=== PATIENT | male | born 1950 | race Caucasian/White ===

== ENCOUNTER → 2018-01-10 09:23 | Outpatient (CLI) | payer MEDICARE, SELFPAY ==
--- NOTE | 2018-01-10 09:23 | ECHOCS_ITS ---
Reason For Study: CHF Procedure This was a 2D Doppler, Color Flow transthoracic echocardiogram. The study was technically difficult. Exam performed in department. Left Ventricle Normal size and thickness. Mildly dilated left ventricle. The estimated ejection fraction is 45 %. There are regional wall motion abnormalities as specified. Mid-Anterior : Mildly hypokinetic. Mid- inferoseptal : Mildly hypokinetic. Anterior [place] : Akinetic. Right Ventricle Normal size and thickness. Normal systolic function. Atria Normal left atrium. Normal right atrium. Normal atrial septum. Mitral Valve The mitral valve is structurally normal. No prolapse or stenosis seen. Tricuspid Valve Normal tricuspid valve. Trivial tricuspid valve insufficiency. Unable to estimate RV systolic pressure/pulmonary artery pressure due to technically difficult study. Aortic Valve Normal aortic valve. Trisinus/trileaflet aortic valve. Pulmonic Valve Normal pulmonic valve. Great Vessels Normal aortic root. Normal arch. Normal inferior vena cava. Inferior vena cava collapse with sniff. Pericardium/Pleural No pericardial effusion. Medication Definity0.3ml given slow IV push to enhance endocardial definition. MMode/2D Measurements & Calculations LVIDd: 5.4 cm IVSd: 0.91 cm Ao root diam: 3.2 cm LVIDs: 4.2 cm LVPWd: 0.80 cm LA dimension: 3.5 cm RVDd: 3.2 cm FS: 21.0 % LAV(MOD-bp): 34.4 ml LA A4 area: 12.7 cm2 RA A4 area: 12.2 cm2 LAV(MOD-bp) Indexed: 15.4 ml/m2 LAV(MOD-sp2): 33.9 ml LAV(MOD-sp4): 28.5 ml Doppler Measurements & Calculations MV E max james: 61.6 cm/sec Lat Peak E' James: 5.6 cm/sec Med Peak E' James: 5.7 cm/sec MV A max james: 87.4 cm/sec E/E' lat: 11.1 E/E' med: 10.8 MV E/A: 0.71 Ao V2 max: 127.4 cm/sec LV V1 max: 108.2 cm/sec PA V2 max: 90.4 cm/sec Ao max P.5 mmHg LV V1 max P.7 mmHg Ao V2 mean: 97.5 cm/sec Ao mean P.0 mmHg Ao V2 VTI: 27.0 cm Interpretation Summary Mildly dilated left ventricle. The estimated ejection fraction is 45 %. There are regional wall motion abnormalities as specified. Trivial tricuspid valve insufficiency. Unable to estimate RV systolic pressure/pulmonary artery pressure due to technically difficult study. Compared to echo report dated 08/25/2017, no appreciable changes noted. Ordering Physician: Amado Henriquez Referring Physician: Amado Henriquez Performed By: Luz Wilson RDCS, RVT
== END ==
PROVIDERS: Family Provider Family Medicine; PCP Family Medicine; Visit Provider Internal Medicine Cardiovascular Disease
DX: I25.5 Ischemic cardiomyopathy (principal)
CPT/HCPCS: 93306; Q9957; A4216; C8929

== ENCOUNTER → 2018-02-09 10:42 | Outpatient (CLI) | payer MEDICARE, SELFPAY ==
[2018-02-09 12:41] LABS: AST(SGOT) 21 U/L (15-37); Alanine Aminotransfer ALT/SGPT 42 U/L (16-61); Albumin, Serum 3.8 g/dL (3.2-5.0); Alkaline Phosphatase 93 U/L (45-117); Bilirubin, Direct 0.11 mg/dL (0.00-0.30); Cholesterol 147 mg/dL (200); Globulin 3.8 g/dL (2.2-4.2); High Density Lipoprotein 31 mg/dL; Protein, Total 7.6 g/dL (6.4-8.2); Triglycerides 179 mg/dL; Very Low Density Lipoprotein 36 mg/dL (5-40)
== END ==
PROVIDERS: Family Provider Family Medicine; PCP Family Medicine; Visit Provider Internal Medicine Cardiovascular Disease
DX: I25.5 Ischemic cardiomyopathy (principal); E78.00 Pure hypercholesterolemia, unspecified
CPT/HCPCS: 36415; 80061; 80076

== ENCOUNTER → 2018-08-08 10:12 | Outpatient (CLI) | payer MEDICARE, SELFPAY ==
--- NOTE | 2018-08-08 10:14 | STEWCON_ITS ---
Reason For Study: Pre-Op, CAD Stress Results Protocol: Evan Protocol Maximum Predicted HR: 151 bpm Target HR: 128 bpm % Maximum Predicted HR: 99 % DurationHeart Rate Stage (mm:ss) (bpm) BP Comment Baseline 77 130/72Diluted Definity 2 ML Given; No Chest Pain Evan Protocol Stage I 3:00 121 152/76No Chest Pain; Mild Dyspnea Evan Protocol Stage II 3:00 150 170/72No Chest Pain; Moderate to Severe Dyspnea Recovery 96 128/80No Chest Pain Stress Duration: 6:00 mm:ss Maximum Stress HR: 150 bpm METS: 7 Baseline Echocardiogram Findings The estimated ejection fraction is 35 % . Stress Echo Wall motion Data Resting WM Intermediate WM Stress WM Resting Wall Motion Wall Motion Stress Moderate global LV dysfunction. Basal anteroseptal: Severely Hypokinetic. Mid-Anterior : Severely Hypokinetic. Mid-anteroseptal : Severly Hypokinetic. Anterior [place] : Akinetic. EKG Data The baseline ECG displays normal sinus rhythm. The patient exercised according to the regular Evan protocol for a total duration of 6:00. The maximum heart rate attained was 151 beats per minute. This was 100% of maximum predicted heart rate. The patient exercised into stage 3 of the Evan protocol. During stress, there were no ST or T wave changes noted to suggest ischemia. No clinical angina was noted. Interpretation Summary The study was technically difficult. Contrast injection was performed. The estimated ejection fraction is 35 %. Moderate global LV dysfunction. Basal anteroseptal: Severely Hypokinetic. Mid-Anterior : Severely Hypokinetic. Mid-anteroseptal : Severly Hypokinetic. Anterior [place] : Akinetic. Abnormal, adequate, treadmill echocardiogram. Positive for ischemia by echocardiographic anterior. Patient had baseline global LV dysfunction with an EF around 30%. Peak exercise the patient has significant hypokinesis seen in several views of his mid anterior and apical lawrence. Final ejection fraction approximately 20%. No anginal symptoms noted. Rare PVCs noted. Below average exercise capacity for age. Appropriate blood pressure response to exercise. Test terminated due to dyspnea which may be an anginal equivalent. No complications. Patient was referred to our office for catheterization. Ordering Physician: Amado Henriquez Referring Physician: Amado Henriquez Performed By: Suzi Hughes, ROXY, RVT
--- NOTE | 2018-08-08 12:21 | RAD_ITS ---
STUDY: X-RAY CHEST REASON FOR EXAM: Male, 68 years old. CHF, failed stress test TECHNIQUE: PA and lateral views of the chest. COMPARISON: 08/23/2017 FINDINGS: The lungs are clear but mildly hyper expanded. There is no demonstrated pleural abnormality. Normal size heart. Normal mediastinum and art. Normal visualized pulmonary arteries. There is atherosclerotic calcification of the aortic arch with tortuosity. There are diffuse degenerative changes of the visualized thoracic spine. Normal visualized ribs, clavicles, and shoulders. There is no demonstrated abnormality of the visualized soft tissue structures of the upper abdomen. RAD/Chest PA and Lateral IMPRESSION: 1. Since 08/23/2017, stable exam. No acute cardiopulmonary process. Electronically Signed: Antonio Zamora MD at 7:34 EST , Service support ,
[2018-08-08 13:43] LABS: Hematocrit 45.5 % (40-54); Hemoglobin 15.5 g/dl (13.0-16.5); Mean Corp Hgb Conc 34.1 g/gl (32-36); Mean Corpuscular Volume 93.8 fL (80-94); Mean Platelet Vol. 9.5 fl (6.2-12.0); Platelet Count 215 K/mm3 (150-450); Prothrombin Time (Protime)PT. 13.6 SECONDS (11.7-14.9); RBC Distribution Width CV 13.3 % (11.6-14.6); RBC Distribution Width SD 44.4 fl (35.1-43.9); Red Blood Count 4.85 M/mm3 (4.6-6.2); White Blood Count 6.6 K/mm3 (4.4-11.0)
[2018-08-08 13:44] LABS: Partial Thromboplast Time 28.1 Seconds (24.1-36.2)
[2018-08-08 13:56] LABS: Anion Gap 6 (5-15); BUN 15 mg/dL (7-18); Calcium,Total 8.8 mg/dL (8.5-10.1); Chloride 105 mmol/L (98-107); Creatinine, Serum 0.83 mg/dL (0.70-1.30); EST Glomerular Filtration Rate 97 mL/min (>60); Est Glom Filt Rate - Afr Amer 118 mL/min (>60); Glucose 111 mg/dL (74-106); Potassium 3.6 mmol/L (3.5-5.1); Sodium Level 137 mmol/L (136-145)
[2018-08-08 14:11] LABS: Scan Indicated on CBC? Y/N NO
== END ==
PROVIDERS: Family Provider Family Medicine; PCP Family Medicine; Referring Provider Internal Medicine Cardiovascular Disease; Visit Provider Internal Medicine Cardiovascular Disease
DX: I25.5 Ischemic cardiomyopathy (principal); I25.10 Atherosclerotic heart disease of native coronary artery without angina pectoris; Z95.5 Presence of coronary angioplasty implant and graft; Z72.0 Tobacco use; R94.39 Abnormal result of other cardiovascular function study; Z79.01 Long term (current) use of anticoagulants
CPT/HCPCS: 36415; 71046; 80048; 85027; 85610; 85730; 93017; 93350; Q9957; A4216; C8928

== ENCOUNTER 2018-08-22 07:38 | Day surgery (SDC) | payer MEDICARE, SELFPAY ==
[2018-08-21 08:43] VITALS: BMI 33.3
[2018-08-22] VITALS (21 sets, daily range): BP systolic 87–131; BP diastolic 58–78; PULSE 69–87; RESP 10–22; TEMP 36.6–36.7; O2SAT 95–99; BMI 33.3; BMI 33.4
--- NOTE | 2018-08-22 12:01 | CL.I_ITS ---
Patient Name: RIGOBERTO ALBERTS Study Date: 08/22/2018 Performing: Amado Henriquez MD Ht: 70.86 inches 180 cm : 1950 Wt: 238.1 lbs 108 kg Age: 68 Gender: male BSA: 2.27 PROCEDURE(S) PERFORMED [id number]/COR/LV WS46-QSV W OR WO PTCA, SINGLE CORONARY ARTERY CLINICAL PROFILE AND CO-MORBIDITIES Heart Failure: NYHA Class: 1, Newly Diagnosed: No, Heart Failure Type: Systolic Stress/Imaging Stress Echocardiogram: Yes Result: Positive Intermediate Risk Stress Echocardiogra m: Positive Intermediate Risk Angina Classification Anginal Classification w/in 2 Weeks: CCS III CAD Presentations: Unstable angina. 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 RECOMMENDATIONS Highly recommend quitting all tobacco products Follow up with primary fitness and wellness coordinator Risk factor modification ASA Indefinitley Plavix for at least 12 months Routine post interventional care Refer for Outpatient Cardiac Rehab Manual sheath removal per protocol Elective PCI of OM#1 and Proximal LCX in 3 weeks. Will need to postpone macular surgery for 1 year; pt agreed prior to PCI. Successful Mynx closure. DESCRIPTION OF PROCEDURE The patient arrived to the procedure lab. The risks and benefits of the procedure as well as a full d escription of our services here and lack of surgical backup were fully explained to the patient and/o r their significant other prior to the catheterization. The Timeout was completed, verifying the darlyn ect patient and procedure. The patient's procedural site was prepped and draped in the usual fashion. Local anesthetic was given subcutaneously to right groin region with Lidocaine 2%. Using a modified Seldinger technique, arterial access was obtained via the right femoral artery, a 4Fr sheath was inse rted. Left Coronary Artery selective angiography was performed in multiple views using a 4 Fr. JL5 c atheter. Right Coronary Artery selective angiography was then performed in multiple views using a 4 F r. 3DRC catheter. Left Ventriculography was performed in WILLETT projection using a 4 Fr. Pigtail cathete r Arterial sheath was exchanged for a 6 Fr Sheath. HSII Guide catheter was inserted and engaged int o the RCA. BMW Guide wire was advanced to the RCA. Angiogram performed pre balloon dilatation. 2.0x12 Emerge Balloon catheter was advanced across lesion in the right coronary, proximal. PTCA balloon inf lated at 8 atms for 10 secs. Angiogram performed post balloon dilatation. 4.0x38 Synergy Drug Eluting stent was advanced across the lesion in the right coronary, proximal. Angiogram performed pre stent deployment. Angiogram performed post stent deployment. Contrast was injected through the sheath and t he Right Iliac and Femoral artery were assessed for possible closure device. The arterial sheath was pulled and a Mynx closure device was deployed for hemostasis CORONARY ANGIOGRAPHY DOMINANCE: Right Dominant LEFT HEART ASSESSMENT Left Ventricular Ejection Fraction: by LV Gram 25-30 % Depressed Left Ventricular systolic function LVEDP: 20 mmHg Elevated Left Ventricular End Diastolic Pressure Anterior Akinesis. Inferior Mid Hypokinesis - Moderate LEFT MAIN: Angiographically normal LEFT ANTERIOR DECENDING ARTERY: Previously placed stent is patent CIRCUMFLEX ARTERY: PROX CIRC: 75 % Stenosis OM 1: Proximal - 60 % Stenosis RIGHT CORONARY ARTERY: PROX RCA: 75 % Stenosis INTERVENTION INFORMATION LESION SITE: RCA (Proximal) Lesion Complexity: High/C, lesion at bifurcation: No, thrombus present: No, lesion length: 38 mm, cul prit lesion: Yes Pre Stenosis: 75 % Pre intervention MARI flow: 3 PROCEDURE: Drug Eluting Stent with pre dilatation. Post Stenosis: 0 % Post intervention MARI flow: 3 Lesion Devices: Medtronic 6 Fr HSII 100cm Guide Catheter [place] .014 BMW [place] Straight 190cm [place] Sci EMERGE MR 2.00x12 BALLOON [place] Sci Synergy MR EARL 4.00x38 COMPLICATIONS No Complications PROCEDURE MEDICATIONS Oxygen: 2 L/min via nasal cannula Heparin 6000 unit(s) IV 08/22/2018 11:32:07 Nitro 200 mcg IC 08/22/2018 11:35:01 Nitro 200 mcg IC 08/22/2018 11:35:01 IV Fluids: .9 NaCl increased to open ml/hr 08/22/2018 11:34:49 SUMMARY OF HEMODYNAMIC DATA Time AIR REST ECG 08:12:56 AO 113/67 (86) SA 11:24:09 LV 126/-8, 18 11:30:42 LV 128/-11, 20 11:30:48 LVp 120/-13, 16 11:31:09 AOp 117/65 (84) 11:31:14 Signed By Amado Henriquez MD On 08/22/2018 12:00:34 PM Amado Henriquez MD
[2018-08-22 12:11] LABS: ACT Activated Clotting Time 136 sec (74-137)
--- NOTE | 2018-08-22 12:18 | EKG12_ITS ---
Test Reason : POST PCI Blood Pressure : / mmHG Vent. Rate : 074 BPM Atrial Rate : 074 BPM P-R Int : 194 ms QRS Dur : 086 ms QT Int : 434 ms P-R-T Axes : 065 -18 058 degrees QTc Int : 481 ms Sinus rhythm with occasional Premature ventricular complexes Low voltage QRS Septal infarct (cited on or before 24-AUG-2017) Abnormal ECG Confirmed by ANTONIO MAKI, JORGE ([id number]), features editor SWETHA TOLEDO ([id number]) on 08/24/2018 3:17:50 PM Referred By: Amado Henriquez Confirmed By:JORGE ALVAREZ MD
[2018-08-22] MEDS: 0.9% Normal Saline 1,000 ML 150 ML IV (12:28)
--- NOTE | 2018-08-22 13:44 | CRPHASE1 ---
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 Specialist:: Amado Henriquez Phase I Charge:: Level I - Education Risk Factors/Lifestyle Smoking Status: Current every day smoker Hx Hypertension: Yes Hx Diabetes Mellitus Type 2: Yes - on metformin Height: 1.8 m Weight:: 108.4 kg BMI: 33.4 ETOH: No Caffeine: Yes Substance Abuse: No Family History: Family History (Last Reviewed 07/30/18 @ 10:20 by Kiara Patton) Other Pacemaker- mother Family History: Heart Disease Past Cardiac Illness: Coronary Artery Disease Phase I Education Given On:: [place], Nutrition, Antiplatelet medication, Smoking cessation, Diabetes - Type II Issues Affecting Care:: None Hospital Course Cardiac Cath Date:: 08/22/18 Medical/Surgical History DC:: Yes Angina:: Yes MEERA:: Yes - wears cpap Diabetes Type II:: Yes Hypertension:: Yes Other Medical/Surgical Issues:: Will come back for more stents in a few weeks. Discharge/Home/Social Eval Discharge Disposition: Home
--- NOTE | 2018-08-22 13:48 | CRPHASE1_ITS ---
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:: Amado Henriquez Phase I Charge:: Level I - Education Risk Factors/Lifestyle Smoking Status: Current every day smoker Hx Hypertension: Yes Hx Diabetes Mellitus Type 2: Yes - on metformin Height: 1.8 m Weight:: 108.4 kg BMI: 33.4 ETOH: No Caffeine: Yes Substance Abuse: No Family History: Family History (Last Reviewed 07/30/18 @ 10:20 by Kiara Patton) Other Pacemaker- mother Family History: Heart Disease Past Cardiac Illness: Coronary Artery Disease Phase I Education Given On:: [place], Nutrition, Antiplatelet medication, Smoking cessation, Diabetes - Type II Issues Affecting Care:: None Hospital Course Cardiac Cath Date:: 08/22/18 Medical/Surgical History [place]:: Yes Angina:: Yes MEERA:: Yes - wears cpap Diabetes Type II:: Yes Hypertension:: Yes Other Medical/Surgical Issues:: Will come back for more stents in a few weeks. Discharge/Home/Social Eval Discharge Disposition: Home
--- NOTE | 2018-08-22 13:49 | CRPH1.INSTRU ---
General Education CAD and cardiac anatomy and function:: Patient communicates acknowledgment Explanation of diagnoses and procedures:: Patient communicates acknowledgment Sign/Symptoms of NE:: Patient communicates acknowledgment Antiplatelet therapy: Patient communicates acknowledgment Proper use of NTG-SL: Patient communicates acknowledgment Emergency procedures and activation of EMS: Patient communicates acknowledgment Compliance of all prescribed medications: Patient communicates acknowledgment Smoking Patient Nicotine/Smoking Risk Factors Are:: Cigarettes Recommendations Include:: Smoking cessation strategies/Smoking packet Nicotine/Smoking Response Code:: Patient communicates acknowledgment - trying to qiuit on own down to 4-5 cig/day Dyslipidemia Recommendations Include:: Lipid profile not available Overweight/Obesity Patient Overweight/Obesity Risk Factors Are:: Overweight = 26-29 Overweight/Obesity:: Patient communicates acknowledgment Hypertension Recommendations Include:: Maintain BP <130/85, BP <130/80 if diabetic, Decrease/maintain normal body weight Hypertension:: Patient communicates acknowledgment Heart Disease Patient Heart Disease Risk Factors Are:: Previous cardiac event Heart Disease Response Code:: Patient communicates acknowledgment Diabetes Recommendations Include:: Maintain fasting blood sugars 70-110 md/dL, Maintain HgbA1c of 6% or less Diabetes:: Patient communicates acknowledgment - on metformin Metabolic Syndrome Patient Metabolic Syndrome Risk Factors Are [3 of 5]:: Fasting blood sugar > 100 mg/dL, Waist circumference > 35 [female] or 40 [male] Metabolic Syndrome Response Code:: Patient communicates acknowledgment Sedentary Recommendations Include:: Benefits of regular exercise Sedentary Response Code:: Patient communicates acknowledgment Stress Patient Stress Risk Factors Are:: Patient denies stress as a risk factor
--- NOTE | 2018-08-22 16:47 | PCM.DC.CCA ---
Discharge Diet: Low fat/ Low Cholesterol Discharge Activity: Return to Normal Activity May shower in (days): 1 May resume sexual activity in: 1-2 weeks Lifting Restrictions: Do not lift anything greater than 10 pounds for 3 days Call your doctor if your incision/area has: Continuous Slow Oozing, Sudden Increased Bleeding, Increased Pain/ Swelling, Increased Redness, Foul Smelling Discharge, Swelling at the incision site Call your doctor if you observe: Fever of 101 or Higher, Shortness of breath, Chest pain Remove Dressing in (days):: 1 Cleanse incision/area with: Soap & Water Additional Instructions: You will be contacted by [facility] office with detailed instructions regarding staged intervention. We are planning on doing the intervention in approximately three weeks. Depending on timing, you may need to repeat blood work, ECG, and office visit prior to procedure. We will give you these instructions over the phone next week. You will continue with Aspirin and Plavix therapy. You will remain on Plavix for at least one year. If anyone asks you to stop this medication, please call the [facility] office at [phone] first. Allergies/Adverse Reactions: Allergies atorvastatin [From Lipitor] Adverse Reaction (Verified 07/30/18 10:23) Diarrhea, vomiting, myalgias Medications to take at Discharge Ascorbic Acid [Vitamin C] 1,000 mg PO DAILY 08/23/17 Aspirin [Aspir-Low] 81 mg PO DAILY 08/23/17 Cholecalciferol (Vitamin D3) [Vitamin D3] 2,000 unit PO DAILY 08/23/17 Flaxseed Oil [[place]-3 Flaxseed Oil] 1,000 mg PO DAILY 08/23/17 Multivitamin [Multiple Vitamins] 1 ea PO DAILY 08/23/17 Clopidogrel Bisulfate [Plavix] 75 mg PO DAILY #60 tab 08/25/17 Losartan Potassium [Cozaar] 50 mg PO DAILY #60 tab 08/25/17 hydroCHLOROthiazide [Hydrochlorothiazide] 12.5 mg PO DAILY #60 cap 08/25/17 naproxen sodium 220 mg tablet 440 mg PO QDAY PRN tab 12/29/17 metformin 500 mg tablet 500 mg PO DAILY tab 07/30/18 metoprolol tartrate 25 mg tablet 12.5 mg PO BID #30 tab 08/08/18 Primary Care Physician: Dante Luevano MD [Primary Care Provider] - Test Results: Test results from this visit will be discussed in further detail at your follow-up appointment, if applicable. Please Follow Up With: As directed next week from [facility] Office Proposed Discharge Date: 08/23/18 Cardiac Rehabilitation Info Cardiac Rehabilitation Program Information: Cardiac Rehabilitation is important for patients like you who are recovering from a heart problem. Cardiac rehabilitation programs are recognized as integral to the continued care of the patient with coronary heart disease. The cardiac rehabilitation program is designed to optimize a patient's physical, psychological, and social functioning. Health healthcare administrator work in cardiac rehabilitation programs and assist you with getting the treatments you need to get stronger and healthier - like exercise, healthy eating habits, and medications. Cardiac rehabilitation has been show to help people with heart problems live longer and have better life enjoyment than people who do not go to cardiac rehabilitation. Please contact the Cardiac Rehabilitation Program at [facility] at in two weeks if you have not heard from them.
--- NOTE | 2018-08-22 16:52 | DCINST_ITS ---
Discharge Diet: Low fat/ Low Cholesterol Discharge Activity: Return to Normal Activity May shower in (days): 1 May resume sexual activity in: 1-2 weeks Lifting Restrictions: Do not lift anything greater than 10 pounds for 3 days Call your doctor if your incision/area has: Continuous Slow Oozing, Sudden Increased Bleeding, Increased Pain/ Swelling, Increased Redness, Foul Smelling Discharge, Swelling at the incision site Call your doctor if you observe: Fever of 101 or Higher, Shortness of breath, Chest pain Remove Dressing in (days):: 1 Cleanse incision/area with: Soap & Water Additional Instructions: You will be contacted by [facility] office with detailed instructions regarding staged intervention. We are planning on doing the intervention in approximately three weeks. Depending on timing, you may need to repeat blood work, ECG, and office visit prior to procedure. We will give you these instructions over the phone next week. You will continue with Aspirin and Plavix therapy. You will remain on Plavix for at least one year. If anyone asks you to stop this medication, please call the [facility] office at [phone] first. Allergies/Adverse Reactions: Allergies atorvastatin [From Lipitor] Adverse Reaction (Verified 07/30/18 10:23) Diarrhea, vomiting, myalgias Medications to take at Discharge Ascorbic Acid [Vitamin C] 1,000 mg PO DAILY 08/23/17 Aspirin [Aspir-Low] 81 mg PO DAILY 08/23/17 Cholecalciferol (Vitamin D3) [Vitamin D3] 2,000 unit PO DAILY 08/23/17 Flaxseed Oil [[place]-3 Flaxseed Oil] 1,000 mg PO DAILY 08/23/17 Multivitamin [Multiple Vitamins] 1 ea PO DAILY 08/23/17 Clopidogrel Bisulfate [Plavix] 75 mg PO DAILY #60 tab 08/25/17 Losartan Potassium [Cozaar] 50 mg PO DAILY #60 tab 08/25/17 hydroCHLOROthiazide [Hydrochlorothiazide] 12.5 mg PO DAILY #60 cap 08/25/17 naproxen sodium 220 mg tablet 440 mg PO QDAY PRN tab 12/29/17 metformin 500 mg tablet 500 mg PO DAILY tab 07/30/18 metoprolol tartrate 25 mg tablet 12.5 mg PO BID #30 tab 08/08/18 Primary Care Physician: Dante Luevano MD [Primary Care Provider] - Test Results: Test results from this visit will be discussed in further detail at your follow- up appointment, if applicable. Please Follow Up With: As directed next week from [facility] Office Proposed Discharge Date: 08/23/18 Cardiac Rehabilitation Info Cardiac Rehabilitation Program Information: Cardiac Rehabilitation is important for patients like you who are recovering from a heart problem. Cardiac rehabilitation programs are recognized as integral to the continued care of the patient with coronary heart disease. The cardiac rehabilitation program is designed to optimize a patient's physical, psychological, and social functioning. Health clinical care leader work in cardiac rehabilitation programs and assist you with getting the treatments you need to get stronger and healthier - like exercise, healthy eating habits, and med ications. Cardiac rehabilitation has been show to help people with heart problems live longer and have better life enjoyment than people who do not go to cardiac rehabilitation. Please contact the Cardiac Rehabilitation Program at [facility] at in two weeks if you have not heard from them.
[2018-08-22 17:40] LABS: Bedside Glucose 142 mg/dL (70-110)
[2018-08-22] MEDS: Metoprolol Tartrate 25 MG Tablet 12.5 MG PO (21:07)
[2018-08-22 21:16] LABS: Bedside Glucose 115 mg/dL (70-110)
[2018-08-23] VITALS (13 sets, daily range): BP systolic 118–145; BP diastolic 64–92; PULSE 67–77; RESP 14–21; TEMP 36.4–36.6; O2SAT 95–97
[2018-08-23 04:04] LABS: Hematocrit 43.4 % (40-54); Hemoglobin 14.8 g/dl (13.0-16.5); Mean Corp Hgb Conc 34.1 g/gl (32-36); Mean Corpuscular Hgb 32.4 pg (27.0-32.0); Mean Platelet Vol. 9.3 fl (6.2-12.0); Platelet Count 188 K/mm3 (150-450); RBC Distribution Width CV 13.2 % (11.6-14.6); RBC Distribution Width SD 44.5 fl (35.1-43.9); Red Blood Count 4.57 M/mm3 (4.6-6.2); Scan Indicated on CBC? Y/N NO; White Blood Count 7.4 K/mm3 (4.4-11.0)
[2018-08-23 04:15] LABS: Anion Gap 9 (5-15); BUN 17 mg/dL (7-18); BUN/Creat Ratio 19.1 RATIO (10-20); Calcium,Total 8.6 mg/dL (8.5-10.1); Chloride 106 mmol/L (98-107); Creatinine, Serum 0.89 mg/dL (0.70-1.30); EST Glomerular Filtration Rate 90 mL/min (>60); Est Glom Filt Rate - Afr Amer 109 mL/min (>60); Estimated Creatinine Clearance 80.88 ml/min; Glucose 125 mg/dL (74-106); Potassium 4.1 mmol/L (3.5-5.1); Sodium Level 141 mmol/L (136-145)
[2018-08-23] MEDS: Clopidogrel Bisulfate 75 MG Tablet PO (08:46)
[2018-08-23] MEDS: Metoprolol Tartrate 25 MG Tablet 12.5 MG PO (08:46)
[2018-08-23] MEDS: Ascorbic Acid 500 MG Tablet 1000 MG PO (08:47)
[2018-08-23] MEDS: Multivitamins,Therapeutic Tablet 1 TABLET PO (08:47)
[2018-08-23] MEDS: Aspirin E.C. 81 MG Tablet PO (08:47)
[2018-08-23] MEDS: hydroCHLOROthiazide 12.5mg 12.5 MG PO (08:47)
[2018-08-23] MEDS: Losartan Potassium 50 MG Tablet PO (08:47)
--- NOTE | 2018-08-23 10:02 | PCM.PN.CARD ---
Subjectve: Patient doing very well, feels much better since his stenting yesterday. Right groin is clean/dry/intact, without evidence of thrills, bruits or hematoma. EKG shows normal sinus rhythm, no acute changes. Telemetry showed normal sinus rhythm, no ventricular arrhythmias. Hemoglobin and creatinine within nominal limits. Objective: Vital Signs Temp Pulse Resp BP Pulse Ox 97.6 F L 74 19 H 119/78 96 08/23/18 08:00 08/23/18 09:00 08/23/18 09:00 08/23/18 09:00 08/23/18 09:00 Oxygen Delivery Method Room Air Weight: 239 lb 13.807 oz Body Mass Index (BMI) 33.3 Intake and Output for Last 24 Hours 08/21/18 08/22/18 08/23/18 23:59 23:59 23:59 Intake Total 993 / 993 485 / 485 Balance 993 / 993 485 / 485 General: Awake, Alert, Oriented x 3 HEENT: PERRL, EOMI, Sclera Non Icteric Neck: Supple, Good ROM, No Lymph Node Enlargement Lungs: Clear to auscultation Cardiovascular: Regular Rhythm, Normal S1, Normal S2, No Murmurs, No Rubs, No Gallops Vascular: No Carotid Bruits, Normal Femoral Pulses, Normal Radial Pulses, Normal Dorsalis Pedal Pulse, Normal Posterior Tibial Pulses Abdomen: Bowel Sounds Present, Soft, Non Tender, No HSM, No Organomegaly Extremities: No Cyanosis, No Clubbing, No edema Neurological: No Focal Motor or Sensory Deficit 08/23/18 04:00: WBC 7.4, RBC 4.57 L, Hgb 14.8, Hct 43.4, MCV 95.0 H, MCH 32.4 H, MCHC 34.1, RDW 13.2, RDW Differential 44.5 H, Plt Count 188, MPV 9.3 08/23/18 04:00: Sodium 141, Potassium 4.1, Chloride 106, Carbon Dioxide 26.0, Anion Gap 9, BUN 17, Creatinine 0.89, Est GFR (MDRD) Af Amer 109, Est GFR (MDRD) Non-Af 90, BUN/Creatinine Ratio 19.1, Glucose 125 H, Calcium 8.6 Rhythm: EKG: ECHO: Stress Test: Cardiac Cath: PCI: CT Surgery: Holter monitor: EPS: PPM: CXR: Chest CT Scan: Medical Necessity - Tobacco Use Smoking Status: Current every day smoker Assessment/Plan 1. Coronary artery disease: Patient underwent successful angioplasty and stenting of his proximal RCA receiving a 4.0X 38 Promus stent with an excellent result. The patient feels much better ever since his stenting yesterday. His right groin is intact. His hemoglobin and creatinine are within nominal limits. Have recommended the patient be discharged home and follow-up in office in 2 weeks time. He will continue his baby aspirin, Plavix, antihypertensive medications and be enrolled in cardiac rehab once his groin is healed. 2. Hyperlipidemia: Continue statin based medications. Repeat lipid profile after cardiac rehab. 3. She may be discharged home and follow-up with Dr. Henriquez going forward. Code Visit Inpatient E&M: 35956 Subs Hosp L2
== END 2018-08-23 10:05 | disposition home or self-care (01) ==
LOC: CLSP 07:39 → ICU 08-23 06:56
PROVIDERS: Family Provider Family Medicine; PCP Family Medicine; Referring Provider Internal Medicine Cardiovascular Disease; Visit Provider Internal Medicine Cardiovascular Disease
DX: I25.10 Atherosclerotic heart disease of native coronary artery without angina pectoris (principal); E78.5 Hyperlipidemia, unspecified; I25.5 Ischemic cardiomyopathy; G47.33 Obstructive sleep apnea (adult) (pediatric); I10 Essential (primary) hypertension; I25.2 Old myocardial infarction; F17.200 Nicotine dependence, unspecified, uncomplicated; Z95.5 Presence of coronary angioplasty implant and graft; Z79.02 Long term (current) use of antithrombotics/antiplatelets
CPT/HCPCS: 80048; 82962; 85027; 85347; 92928; 93005; 93458; C1760; J7030; J7040; Q9967; C1725; C1769; C1874; C1887; C1894; C9600

== ENCOUNTER 2018-09-07 09:40 | Day surgery (SDC) | payer MEDICARE, SELFPAY ==
[2018-08-22 12:19] VITALS: BMI 33.3
[2018-08-22 13:48] VITALS: BMI 33.4
[2018-09-06 15:10] VITALS: BMI 34.2
[2018-09-07] VITALS (20 sets, daily range): BP systolic 106–122; BP diastolic 52–83; PULSE 70–114; RESP 9–24; TEMP 36.6–36.7; O2SAT 93–100; BMI 33.7
--- NOTE | 2018-09-07 11:35 | NURSING ---
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
[2018-09-07] MEDS: 0.9% Normal Saline 1,000 ML 150 ML IV (11:45)
--- NOTE | 2018-09-07 12:00 | CL.I_ITS ---
Patient Name: RIGOBERTO ALBERTS Study Date: 09/07/2018 Performing: Ht: 71 inches 180 cm : 1950 Wt: 245 lbs 111 kg Age: 68 Gender: male BSA: 2.29 PROCEDURE(S) PERFORMED NT05-TPN W OR WO PTCA, EACH ADD'L ARTERY, SAME MAJOR CLINICAL PROFILE AND CO-MORBIDITIES Indications: Stable Known CAD, Cardiomyopathy, LV Dysfunction, Other/dyspnea on exertion., Worsen ing Angina Heart Failure: NYHA Class: 1, Newly Diagnosed: No, Heart Failure Type: Systolic Stress/Imaging Stress/Image Study Performed: No Angina Classification Anginal Classification w/in 2 Weeks: CCS III CAD Presentations: Unstable angina. Other: Dyspnea on exertion Comorbidities/Risk Factors: Hypertension Dyslipidemia Prior CHF Prior PCI Diabetes Mellitus: Diabetes Therapy: Oral CONCLUSIONS Successful PTCA/EARL of proximal OM#1 with a 2.25 x 16 Promus Synergy; 75%-->0%, no dissection. Ostiu m dilated after LCX stent deployed. Successful PTCA/EARL mid LCX with a 2.25 x 12 Promus Synergy, post dilated with a 2.5, 3.0 and 3.5 NC balloon in distal 2/3 to insure adequate stent apposition. RECOMMENDATIONS Highly recommend quitting all tobacco products Follow up with primary hospital nursing assistant Risk factor modification ASA Indefinitley Plavix for at least 12 months Routine post interventional care Refer for Outpatient Cardiac Rehab Manual sheath removal per protocol Follow up with Dr. Henriquez Risk factor modification Successful Mynx closure in RFA. Repeat echo after cardiac rehab; if LVEF=35% would consider AICD. DESCRIPTION OF PROCEDURE The patient arrived to the procedure lab. The risks and benefits of the procedure as well as a full d escription of our services here and current unavailability of surgical backup were fully explained to the patient and/or their significant other prior to the catheterization. The Timeout was completed, verifying the correct patient and procedure. The patient's procedural site was prepped and draped in the usual fashion. Local anesthetic was given subcutaneously to right groin region with Lidocaine 2% Using a modified Seldinger technique,arterial access was obtained via the right femoral artery, a 6Fr sheath was inserted. . EBU 3.75 Guide catheter was inserted and engaged into the LCA. BMW (1) Guide wire was advanced to the Circumflex. BMW (2) Guide wire was advanced to the 1st OM. Angiogram performed pre balloon dilat ation. Balloon catheter was inserted. 2 x 8 Emerge Balloon catheter was advanced across lesion in the first obtuse marginal, proximal. PTCA balloon inflated at 6 atms for 8 secs. PTCA balloon inflated a t 6 atms for 6 secs. Angiogram performed post balloon dilatation. 2.25 x 16 Synergy Drug Eluting sten t was inserted. Drug Eluting stent was advanced across the lesion in the first obtuse marginal, proxi mal. Angiogram performed pre stent deployment. Angiogram performed post stent deployment. 2 x 8 Emerg e Balloon catheter was inserted. Balloon catheter was advanced across lesion in the circumflex, mid. PTCA balloon inflated at 8 atms for 12 secs. PTCA balloon inflated at 12 atms for 12 secs. Angiogram performed post balloon dilatation. 2.25 x 12 Synergy Drug Eluting stent was inserted. Drug Eluting stent was advanced across the lesion in the circumflex, mid. Angiogram performed pre stent de ployment. Angiogram performed post stent deployment. 2.5 x 8 NC Emerge Balloon catheter was inserted. Balloon catheter was inserted post stent of Mid Circumflex. Angiogram performed pre balloon dilatati on. 3.0 x 8 NC Emerge Balloon catheter was inserted. Balloon catheter was inserted post stent Mid Cir cumflex. Angiogram performed pre balloon dilatation. Angiogram performed post balloon dilatation. 3.5 x 8 NC Emerge Balloon catheter was inserted. Balloon catheter was inserted post stent Mid Circumflex . Angiogram performed pre balloon dilatation. Angiogram performed post balloon dilatation. BMW (1) Gu jacob wire was repositioned to the 1st OM 2.0 x 8 Emerge Balloon catheter was inserted. Balloon cathete r was advanced across lesion in the first obtuse marginal, proximal. BMW (2) Guide wire was repositio anthony to the Circumflex Angiogram performed pre balloon dilatation. PTCA balloon inflated at 6 atms for 10 secs. PTCA balloon inflated at 6 atms for 11 secs. PTCA balloon inflated at 6 atms for 16 secs. Angiogram performed post balloon dilatation. Contrast was injected through the sheath and th e Right Iliac and Femoral artery were assessed for possible closure device. The arterial sheath was pulled and a Mynx closure device was deployed for hemostasis INTERVENTION INFORMATION LESION SITE: 1st OM (Proximal) Lesion Complexity: Non-High/Non-C, lesion at bifurcation: Yes, thrombus present: No, lesion length: 1 6 mm, culprit lesion: No Pre Stenosis: 75 % Pre intervention MARI flow: 3 PROCEDURE: Drug Eluting Stent with pre dilatation. Post Stenosis: 0 % Post intervention MARI flow: 3 Lesion Devices: Santamaria .014 BMW [place] Straight 190cm Medtronic 6 Fr EBU3.75 100cm Guide Catheter Garfield Sci EMERGE MR 2.00x08 BALLOON Garfield Sci Synergy MR EARL 2.25x16 LESION SITE: Circumflex (Mid) Lesion Complexity: High/C, lesion at bifurcation: Yes, thrombus present: No, lesion length: 12 mm, cu lprit lesion: Yes Pre Stenosis: 85 % Pre intervention MARI flow: 3 PROCEDURE: Drug Eluting Stent with pre and post dilatation Post Stenosis: 0 % Post intervention MARI flow: 3 Lesion Devices: Santamaria .014 BMW [place] Straight 190cm Medtronic 6 Fr EBU3.75 100cm Guide Catheter Garfield Sci EMERGE MR 2.00x08 BALLOON Garfield Sci Synergy MR EARL 2.25x12 Garfield Sci NC EMERGE MR 2.50x08 BALLOON Garfield Sci NC EMERGE MR 3.00x08 BALLOON Garfield Sci NC EMERGE MR 3.50x08 BALLOON COMPLICATIONS No Complications PROCEDURE MEDICATIONS Oxygen: 2 L/min via nasal cannula Baby Aspirin (81mg) 1 Tabs PO @ 09/07/2018 09:57:05 Heparin 6000 unit(s) IV 09/07/2018 10:33:02 Nitro 200 mcg IC 09/07/2018 10:34:56 Nitro 200 mcg IC 09/07/2018 10:34:56 Plavix 75 mg PO 09/07/2018 09:57:10 IV Bolus: .9 NaCl 600 ml total 09/07/2018 11:12:28 IV Fluids: .9 NaCl increased to WO ml/hr 09/07/2018 10:33:32 SUMMARY OF HEMODYNAMIC DATA Time AIR REST ECG 10:00:25 AO 123/58 (86) SA 10:34:18
[2018-09-07 12:21] LABS: ACT Activated Clotting Time 158 sec (74-137)
[2018-09-07 12:35] LABS: Bedside Glucose 118 mg/dL (70-110)
--- NOTE | 2018-09-07 13:23 | CRPHASE1 ---
Patient Data/Charges Former Patient:: Phase I - SEEN PREVIOUSLY Risk Factors/Lifestyle Family History: Family History (Last Reviewed 09/06/18 @ 15:11 by Kiara Patton) Other Pacemaker- mother
--- NOTE | 2018-09-07 13:23 | CRPH1.INSTRU ---
General Education CAD and cardiac anatomy and function:: Patient communicates acknowledgment - SEEN PREVIOUSLY
--- NOTE | 2018-09-07 15:17 | PCM.DC.CCA ---
Discharge Diet: Low fat/ Low Cholesterol Discharge Activity: Return to Normal Activity May shower in (days): 1 May resume sexual activity in: 1-2 weeks Lifting Restrictions: Do not lift anything greater than 10 pounds for 3 days Call your doctor if your incision/area has: Continuous Slow Oozing, Sudden Increased Bleeding, Increased Pain/ Swelling, Increased Redness, Foul Smelling Discharge, Swelling at the incision site Call your doctor if you observe: Fever of 101 or Higher, Shortness of breath, Chest pain Remove Dressing in (days):: 1 Cleanse incision/area with: Soap & Water Additional Instructions: Please hold your Metformin for 3 days post heart catheterization. You may begin your Metformin a 09/11/2018. You will continue with Aspirin and Plavix therapy. You will remain on Plavix therapy for at least one year. If anyone asks you to stop this medication, please call the [facility] first at [phone]. You are scheduled to see Arias Baez, Nurse Practitioner, with the [facility] on 09/21/2018 at 1:00 PM. ' You may be contacted by cardiac rehab before this appointment. We will assess readiness to start at your office visit. Please call the [facility] with any questions or concerns. Allergies/Adverse Reactions: Allergies atorvastatin [From Lipitor] Adverse Reaction (Verified 09/06/18 15:12) Diarrhea, vomiting, myalgias Medications to take at Discharge Ascorbic Acid [Vitamin C] 1,000 mg PO DAILY 08/23/17 Aspirin [Aspir-Low] 81 mg PO DAILY 08/23/17 Cholecalciferol (Vitamin D3) [Vitamin D3] 2,000 unit PO DAILY 08/23/17 Flaxseed Oil [[place]-3 Flaxseed Oil] 1,000 mg PO DAILY 08/23/17 Multivitamin [Multiple Vitamins] 1 ea PO DAILY 08/23/17 Clopidogrel Bisulfate [Plavix] 75 mg PO DAILY #60 tab 08/25/17 Losartan Potassium [Cozaar] 50 mg PO DAILY #60 tab 08/25/17 hydroCHLOROthiazide [Hydrochlorothiazide] 12.5 mg PO DAILY #60 cap 08/25/17 metformin 500 mg tablet 500 mg PO DAILY tab 07/30/18 metoprolol tartrate 25 mg tablet 12.5 mg PO BID #30 tab 08/08/18 rosuvastatin 5 mg tablet 5 mg PO DAILY 09/06/18 Primary Care Physician: Dante Luevano MD [Primary Care Provider] - Test Results: Test results from this visit will be discussed in further detail at your follow-up appointment, if applicable. Please Follow Up With: Arias Campuzano When: 09/21/2018 at 1:00 PM Proposed Discharge Date: 09/08/18 Cardiac Rehabilitation Info Cardiac Rehabilitation Program Information: Cardiac Rehabilitation is important for patients like you who are recovering from a heart problem. Cardiac rehabilitation programs are recognized as integral to the continued care of the patient with coronary heart disease. The cardiac rehabilitation program is designed to optimize a patient's physical, psychological, and social functioning. Health career information specialist work in cardiac rehabilitation programs and assist you with getting the treatments you need to get stronger and healthier - like exercise, healthy eating habits, and medications. Cardiac rehabilitation has been show to help people with heart problems live longer and have better life enjoyment than people who do not go to cardiac rehabilitation. Please contact the Cardiac Rehabilitation Program at [facility] at in two weeks if you have not heard from them.
--- NOTE | 2018-09-07 15:21 | DCINST_ITS ---
Discharge Diet: Low fat/ Low Cholesterol Discharge Activity: Return to Normal Activity May shower in (days): 1 May resume sexual activity in: 1-2 weeks Lifting Restrictions: Do not lift anything greater than 10 pounds for 3 days Call your doctor if your incision/area has: Continuous Slow Oozing, Sudden Increased Bleeding, Increased Pain/ Swelling, Increased Redness, Foul Smelling Discharge, Swelling at the incision site Call your doctor if you observe: Fever of 101 or Higher, Shortness of breath, Chest pain Remove Dressing in (days):: 1 Cleanse incision/area with: Soap & Water Additional Instructions: Please hold your Metformin for 3 days post heart catheterization. You may begin your Metformin a 09/11/2018. You will continue with Aspirin and Plavix therapy. You will remain on Plavix therapy for at least one year. If anyone asks you to stop this medication, please call the [facility] first at [phone]. You are scheduled to see Arias Baez, Nurse Practitioner, with the [facility] on 09/21/2018 at 1:00 PM. ' You may be contacted by cardiac rehab before this appointment. We will assess readiness to start at your office visit. Please call the [facility] with any questions or concerns. Allergies/Adverse Reactions: Allergies atorvastatin [From Lipitor] Adverse Reaction (Verified 09/06/18 15:12) Diarrhea, vomiting, myalgias Medications to take at Discharge Ascorbic Acid [Vitamin C] 1,000 mg PO DAILY 08/23/17 Aspirin [Aspir-Low] 81 mg PO DAILY 08/23/17 Cholecalciferol (Vitamin D3) [Vitamin D3] 2,000 unit PO DAILY 08/23/17 Flaxseed Oil [[place]-3 Flaxseed Oil] 1,000 mg PO DAILY 08/23/17 Multivitamin [Multiple Vitamins] 1 ea PO DAILY 08/23/17 Clopidogrel Bisulfate [Plavix] 75 mg PO DAILY #60 tab 08/25/17 Losartan Potassium [Cozaar] 50 mg PO DAILY #60 tab 08/25/17 hydroCHLOROthiazide [Hydrochlorothiazide] 12.5 mg PO DAILY #60 cap 08/25/17 metformin 500 mg tablet 500 mg PO DAILY tab 07/30/18 metoprolol tartrate 25 mg tablet 12.5 mg PO BID #30 tab 08/08/18 rosuvastatin 5 mg tablet 5 mg PO DAILY 09/06/18 Primary Care Physician: Dante Luevano MD [Primary Care Provider] - Test Results: Test results from this visit will be discussed in further detail at your follow- up appointment, if applicable. Please Follow Up With: Arias Campuzano When: 09/21/2018 at 1:00 PM Proposed Discharge Date: 09/08/18 Cardiac Rehabilitation Info Cardiac Rehabilitation Program Information: Cardiac Rehabilitation is important for patients like you who are recovering from a heart problem. Cardiac rehabilitation programs are recognized as integral to the continued care of the patient with coronary heart disease. The cardiac rehabilitation program is designed to optimize a patient's physical, psychological, and social functioning. Health animal care supervisor work in cardiac rehabilitation programs and assist you with getting the treatments you need to get stronger and healthier - like exercise, healthy eating habits, and medications. Cardiac rehabilitation has been show to help people with heart problems live longer and have better life enjoyment than people who do not go to cardiac rehabilitation. Please contact the Cardiac Rehabilitation Program at [facility] at in two weeks if you have not heard from them.
[2018-09-07] MEDS: Metoprolol Tartrate 25 MG Tablet 12.5 MG PO (21:32)
[2018-09-07] MEDS: Rosuvastatin Calcium 5 MG Tablet PO (21:36)
[2018-09-07] MEDS: LORazepam 1 MG Tablet PO (21:36)
[2018-09-08] VITALS (10 sets, daily range): BP systolic 101–118; BP diastolic 62–72; PULSE 71–83; RESP 14–22; TEMP 36.6–36.7; O2SAT 93–98
[2018-09-08 03:36] LABS: Bedside Glucose 129 mg/dL (70-110)
[2018-09-08 04:44] LABS: Hemoglobin 13.3 g/dl (13.0-16.5); Mean Corp Hgb Conc 33.3 g/gl (32-36); Mean Corpuscular Hgb 31.4 pg (27.0-32.0); Mean Corpuscular Volume 94.3 fL (80-94); Mean Platelet Vol. 9.2 fl (6.2-12.0); Platelet Count 162 K/mm3 (150-450); RBC Distribution Width SD 44.6 fl (35.1-43.9); Red Blood Count 4.24 M/mm3 (4.6-6.2); White Blood Count 6.7 K/mm3 (4.4-11.0)
[2018-09-08 04:46] LABS: Anion Gap 8 (5-15); BUN 14 mg/dL (7-18); BUN/Creat Ratio 15.2 RATIO (10-20); Calcium,Total 8.4 mg/dL (8.5-10.1); Chloride 107 mmol/L (98-107); Creatinine, Serum 0.92 mg/dL (0.70-1.30); EST Glomerular Filtration Rate 86 mL/min (>60); Est Glom Filt Rate - Afr Amer 105 mL/min (>60); Estimated Creatinine Clearance 80.71 ml/min; Glucose 129 mg/dL (74-106); Sodium Level 140 mmol/L (136-145)
[2018-09-08 04:55] LABS: Scan Indicated on CBC? Y/N NO
[2018-09-08 06:45] LABS: Bedside Glucose 138 mg/dL (70-110)
[2018-09-08] MEDS: Multivitamins,Therapeutic Tablet 1 TABLET PO (08:58)
[2018-09-08] MEDS: Aspirin E.C. 81 MG Tablet PO (08:58)
--- NOTE | 2018-09-08 09:42 | PCM.PN.CARD ---
Subjectve: Patient doing very well this morning. In fact feels much better! EKG shows normal sinus rhythm, no acute changes. Telemetry shows normal sinus rhythm with rare PVCs. Right groin is clean/dry/intact. Hemoglobin and creatinine are within nominal limits. Objective: Vital Signs Temp Pulse Resp BP Pulse Ox 97.8 F 83 18 115/69 98 09/08/18 08:00 09/08/18 08:00 09/08/18 08:00 09/08/18 08:00 09/08/18 09:00 Oxygen Flow Rate (L/min) 2 Oxygen Delivery Method Room Air Weight: 241 lb 10.026 oz Body Mass Index (BMI) 33.7 Intake and Output for Last 24 Hours 09/06/18 09/07/18 09/08/18 23:59 23:59 23:59 Intake Total 2100 / 2100 390 / 390 Output Total 700 / 700 950 / 950 Balance 1400 / 1400 -560 / -560 General: Awake, Alert, Oriented x 3 HEENT: PERRL, EOMI, Sclera Non Icteric Neck: Supple, Good ROM, No Lymph Node Enlargement Lungs: Clear to auscultation Cardiovascular: Regular Rhythm, Normal S1, Normal S2, No Murmurs, No Rubs, No Gallops Vascular: No Carotid Bruits, Normal Femoral Pulses, Normal Radial Pulses, Normal Dorsalis Pedal Pulse, Normal Posterior Tibial Pulses Abdomen: Bowel Sounds Present, Soft, Non Tender, No HSM, No Organomegaly Extremities: No Cyanosis, No Clubbing, No edema Neurological: No Focal Motor or Sensory Deficit 09/08/18 04:20: WBC 6.7, RBC 4.24 L, Hgb 13.3, Hct 40.0, MCV 94.3 H, MCH 31.4, MCHC 33.3, RDW 13.0, RDW Differential 44.6 H, Plt Count 162, MPV 9.2 09/08/18 04:20: Sodium 140, Potassium 4.0, Chloride 107, Carbon Dioxide 25.0, Anion Gap 8, BUN 14, Creatinine 0.92, Est GFR (MDRD) Af Amer 105, Est GFR (MDRD) Non-Af 86, BUN/Creatinine Ratio 15.2, Glucose 129 H, Calcium 8.4 L Rhythm: EKG: ECHO: Stress Test: Cardiac Cath: PCI: CT Surgery: Holter monitor: EPS: PPM: CXR: Chest CT Scan: Medical Necessity - Tobacco Use Smoking Status: Former smoker Assessment/Plan 1. Coronary artery disease: No exertional anginal symptoms. Patient feels much better after complex angioplasty and drug-eluting stenting to the proximal OM #2, and mid left circumflex with an excellent result. Patient will continue baby aspirin and Plavix for life. He is status post angioplasty and stenting of his right coronary artery several weeks ago. The patient will recover for the next 2 weeks and follow-up in our office as scheduled. He will then be enrolled in cardiac rehab per protocol. He will continue his antihypertensive medications as outlined in the [facility]. Adjustments will be made pending cardiac rehab. 2. Hyperlipidemia: Continue Crestor medication. Repeat lipid profile at the conclusion of cardiac rehab. 3. Patient may be discharged home and follow-up with Dr. Henriquez going forward. Code Visit Inpatient E&M: 28108 Subs Hosp L2
--- NOTE | 2018-09-08 10:00 | EKG12_ITS ---
Test Reason : POST CATH Blood Pressure : / mmHG Vent. Rate : 068 BPM Atrial Rate : 068 BPM P-R Int : 196 ms QRS Dur : 092 ms QT Int : 442 ms P-R-T Axes : 054 -16 065 degrees QTc Int : 469 ms Normal sinus rhythm Low voltage QRS Septal infarct , age undetermined Abnormal ECG Confirmed by JOSE RAMON HENRIQUEZ ([id number]), video effects editor SWETHA TOLEDO ([id number]) on 09/25/2018 1:19:41 PM Referred By: Jose Ramon Henriquez Confirmed By:JOSE RAMON HENRIQUEZ
== END 2018-09-08 09:22 | disposition home or self-care (01) ==
LOC: CLSP 09:41 → ICU 09-08 07:39
PROVIDERS: Family Provider Family Medicine; PCP Family Medicine; Referring Provider Internal Medicine Cardiovascular Disease; Visit Provider Internal Medicine Cardiovascular Disease
DX: I25.10 Atherosclerotic heart disease of native coronary artery without angina pectoris (principal); E78.00 Pure hypercholesterolemia, unspecified; I25.5 Ischemic cardiomyopathy; G47.33 Obstructive sleep apnea (adult) (pediatric); I10 Essential (primary) hypertension; F17.200 Nicotine dependence, unspecified, uncomplicated; Z95.5 Presence of coronary angioplasty implant and graft; Z79.82 Long term (current) use of aspirin; I22.9 Subsequent ST elevation (STEMI) myocardial infarction of unspecified site; I21.4 Non-ST elevation (NSTEMI) myocardial infarction
CPT/HCPCS: 80048; 82962; 85027; 85347; 92928; 92929; 93005; C1760; J7030; J7040; Q9967; C1725; C1769; C1874; C1887; C9600; C9601

== ENCOUNTER → 2018-10-02 12:03 | Outpatient (CLI) | payer MEDICARE, SELFPAY ==
[2018-08-22 13:48] VITALS: BMI 33.4
[2018-09-21 13:00] VITALS: BMI 34.0
--- NOTE | 2018-10-02 13:20 | PCM.CR.HP2 ---
CR - History & Physical - General Arrival date:: 10/02/18 Arrival time:: 12:15 Date of Referral:: 08/23/18 Date of CR Evaluation:: 10/02/18 Referring Physician: Dr. Henriquez Primary Diagnosis: PCI w/stent - History of Present Cardiac Event Onset Date: Enter Onset Date of cardiac illnesses in Comment field below Acute Myocardial Infarction within 12 months:: Yes - NSTEMI 08/23/2018 PTCA or coronary stenting:: Yes - 07/2018 one stent placement 08/23/2018, 2 more 09/07/18 Type of Symptoms:: initially outside working profuse sweating very short of breath and some angina chest pain went on for about 2 hours and came to the emergency room. Interventions with present event:: left heart cath cath and stent, se Were there any complications?: none - Medications Home Medications: Ambulatory Orders Medication Instructions Recorded Aspirin [Aspir-Low] 81 mg PO DAILY 08/23/17 Cholecalciferol (Vitamin D3) 2,000 unit PO DAILY 08/23/17 [Vitamin D3] Flaxseed Oil [[place]-3 Flaxseed Oil] 1,000 mg PO DAILY 08/23/17 Multivitamin [Multiple Vitamins] 1 ea PO DAILY 08/23/17 Clopidogrel Bisulfate [Plavix] 75 mg PO DAILY #60 tab 08/25/17 Losartan Potassium [Cozaar] 50 mg PO DAILY #60 tab 08/25/17 metformin 500 mg tablet 500 mg PO DAILY tab 07/30/18 metoprolol tartrate 25 mg tablet 12.5 mg PO BID #30 tab 08/08/18 ascorbic acid (vitamin C) 1,000 mg 500 mg PO DAILY tab 09/21/18 tablet hydrochlorothiazide 25 mg tablet 12.5 mg PO DAILY tab 09/21/18 rosuvastatin 10 mg tablet 5 mg PO DAILY tab 09/21/18 Rosuvastatin Calcium [Crestor] 5 mg PO QHS 10/02/18 - Allergies Allergies/Adverse Reactions: Allergies atorvastatin [From Lipitor] Adverse Reaction (Verified 09/21/18 13:01) Diarrhea, vomiting, myalgias - Sleep Disorder Evaluation Hx of Sleep Apnea: Yes Do you snore loudly (louder than talking or can be heard through closed doors)?: Yes - currently wears CPAP at since 2007. Advanced Directives - Advanced Directives Power of Zinc Miner: Yes Living Will: Yes Advance Directives Information Provided: No Advance Directives on File: Yes - should be on file from all the visits made DNR Order?:: No - MOLST See MOLST form: No Past Medical History - Past Medical Illness Medical History: Past Medical History (Last Reviewed 09/20/18 @ 10:56 by Kiara Patton) Abnormal stress echo (Acute) R94.39 Ischemic cardiomyopathy (Chronic) I25.5 EF 45% per echo 01/10/2018 Atherosclerosis of coronary artery of [place] heart without angina pectoris (Chronic) I25.10 PCI/EARL-Prox LAD w/ 3.0 x 32 Promus Synergy EARL and POBA to the ostium of the D1 08/24/17; EARL of Proximal RCA (4.0 X 38 mm Promus Synergy) 08/22/2018; EARL of OM 1 (2.25 X 16 Promus Synergy) and EARL of mid LCX (2.25 X 12 Promus Synergy) on 09/07/2018 MEERA (obstructive sleep apnea) (Chronic) G47.33 Non-STEMI (non-ST elevated myocardial infarction) (Chronic) I21.4 Hypertension (Chronic) I10 Hypercholesterolemia (Chronic) E78.00 Tobacco abuse (Chronic) Z72.0 - Past Surgical History Surgical History: Past Surgical History (Last Reviewed 09/20/18 @ 10:56 by Kiara Patton) History of coronary artery stent placement (Chronic) Onset Date: 09/07/18 Z95.5 PCI/EARL-Prox LAD w/ 3.0 x 32 Promus Synergy EARL and POBA to the ostium of the D1 08/24/17; EARL of Proximal RCA (4.0 X 38 mm Promus Synergy) 08/22/2018; 09/07/2018: PTCA/EARL of proximal OM#1 with a 2.25 x 16 Promus Synergy, PTCA/EARL mid LCX with a 2.25 x 12 Promus Synergy History of bilateral knee arthroplasty Z96.653 right foot surgery Surgical History: total knee arthroplasty - Both knees, - - Right foot surgery including bunionectomy - Family History Summary Family History: Family History (Last Reviewed 09/20/18 @ 10:56 by Kiara Patton) Other Pacemaker- mother Social History - Smoking History Smoking Status: Former smoker Years Smokin Packs Smoked per Day: 1 Hx Smoking Cessation Date: 08/20/2018 Hx Tobacco Use: Yes Hx Smoking Exposure: No - Alcohol Use Alcohol Usage: No - Substance Abuse Hx Substance Use: No - Occupation Occupation (List type of work in comments):: Retired - Hobbies, Recreation, Social Activities Hobbies: Other - outdoor hunting fall, fishing, alvin around 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 Social Environment - Status Marital Status: Single - single 40 years - Current Living Arrangements Living Environment:: Spouse - Children How many children do you have?: 2 Do any of your children live nearby?: Yes - [facility] and [place] area - Safety Do you feel safe in your surroundings?: Yes - Assistance Do you need any assistance at home?: none Review of Systems - Review of Systems Hints: Right click = Denies (Slash). Left click = Reports ([place]) Review of Present Symptoms: Reports: Shortness of Breath with Exertion, Fatigue - pronounced, Appetite - Normal, Appetite - Special Diet - increase fiber intake carbs <60 day, more fruits vegetables, no processed foods or sugars, Sleep - Normal. Denies: Shortness of Breath at Rest, Dizziness/Lightheadedness, Heart Arrhythmia/Irregularities, Sexual Changes - Pain Is Patient Pain Free?: No Pain Location: none Pain Level: 0/10 Risk Factor Assessment - Vital Signs Temperature: 98.7 F Respiratory Rate: 16 Blood Pressure: 120/60 - Pulse Pulse Rate: 84 - Hypertension How long have you been treated?: Aug 2017 Blood Pressure Sitting - Right Arm: 120/60 - Obesity Height: 5 ft 11 in Weight:: 244 lb Weight in Pounds: 244.0 lbs Weight Source: Estimated by Patient Body Mass Index (BMI): 34.0 Nutritional Referral for Obesity: Yes - Physical Inactivity Physical Inactivity: None - Risk Stratification Risk Guidelines: Lowest Risk: Risk Factor for Smoking, Risk Factor for Dyslipidemia, Risk Factor for Diabetes, Risk Factor for Hypertension, Risk Factor for Depression, Highest Risk: Risk Factor for Obesity, Risk Factor for Sedentary Lifestyle - For Smoking Smoking Risk Guidelines: Smoking Low Risk: None or quit greater than 6 months ago. Smoking Moderate Risk: Smoker or quit 6 months or less ago. Smoking High Risk: Smoker - For Dyslipidemia Dyslipidemia Risk Guidelines: Low Risk: Moderate Risk: High Risk: 15-25% fat 25.1-29% fat >/= 30% fat. <7% sat fat 7-9% sat fat >9% sat fat. <150 mg chol 150-299 mg chol >/= 300 mg chol. LDL <100 LDL 100-129 LDL >/= 130. Chol/HDL ratio <5.0 Chol/HDL ratio 5.0-6.0 Chol/HDL ratio >6.0. Triglycerides <100 Triglycerides 100-149 Triglycerides >/= 150 - For Diabetes Mellitus Diabetes Risk Guidelines: Diabetes Low Risk: HgA1c <6.5% and/or FBG <120. Diabetes Moderate Risk: HgA1c 6.6-7.9% and/or FBG 120-180. Diabetes High Risk: HgA1c >/= 8% and/or FBG >180 - For Obesity/Overweight Obesity/Overweight Risk Guidelines: Obesity Low Risk: BMI <25.0. Obesity Moderate Risk: BMI 25-29.9. Obesity High Risk: BMI >/= 30.0 - For Hypertension Hypertension Risk Guidelines: Hypertension Low Risk: Systolic <120 and Diastolic <80. Hypertension Moderate Risk: Systolic 120-139 and Diastolic 80-89. Hypertension High Risk: Systolic >/= 140 and Diastolic >/= 90 - For Sedentary Lifestyle Sedentary Lifestyle Risk Guidelines: Sedentary Lifestyle Low Risk: >/= 1,500 kcal/week. Sedentary Lifestyle Moderate Risk: 700-1,499 kcal/week. Sedentary Lifestyle High Risk: < 700 kcal/week - For Depression Depression Risk Guidelines: Depression Low Risk: Not clinically depressed. Depression Moderate Risk: Mildly depressed. Depression High Risk: Clinically depressed - Family History Family History: Family History (Last Reviewed 09/20/18 @ 10:56 by Kiara Patton) Other Pacemaker- mother Motivation - Motivation to Participate On a scale of 1 to 10, how prepared are you to commit to attending program?: 10 What do you see as barriers to successfully being able to complete the program?: none What do you see as the benefits of succesfully completing the program? In other words, what do you hope to get out of participating in the program?: increased knowledge of health, loss of weight, lowering risks Are there issues you are dealing with that will interfere with completing the program?: none Do you have a spouse or signficant other, family or friends who will help support you to complete the program?: yes
--- NOTE | 2018-10-02 13:24 | CR.HP_ITS ---
CR - History & Physical - General Arrival date:: 10/02/18 Arrival time:: 12:15 Date of Referral:: 08/23/18 Date of CR Evaluation:: 10/02/18 Referring Physician: Dr. Henriquez Primary Diagnosis: PCI w/stent - History of Present Cardiac Event Onset Date: Enter Onset Date of cardiac illnesses in Comment field below Acute Myocardial Infarction within 12 months:: Yes - NSTEMI 08/23/2018 PTCA or coronary stenting:: Yes - 07/2018 one stent placement 08/23/2018, 2 more 09/07/18 Type of Symptoms:: initially outside working profuse sweating very short of breath and some angina chest pain went on for about 2 hours and came to the emergency room. Interventions with present event:: left heart cath cath and stent, se Were there any complications?: none - Medications Home Medications: Ambulatory Orders Medication Instructions Recorded Aspirin [Aspir-Low] 81 mg PO DAILY 08/23/17 Cholecalciferol (Vitamin D3) 2,000 unit PO DAILY 08/23/17 [Vitamin D3] Flaxseed Oil [[place]-3 Flaxseed Oil] 1,000 mg PO DAILY 08/23/17 Multivitamin [Multiple Vitamins] 1 ea PO DAILY 08/23/17 Clopidogrel Bisulfate [Plavix] 75 mg PO DAILY #60 tab 08/25/17 Losartan Potassium [Cozaar] 50 mg PO DAILY #60 tab 08/25/17 metformin 500 mg tablet 500 mg PO DAILY tab 07/30/18 metoprolol tartrate 25 mg tablet 12.5 mg PO BID #30 tab 08/08/18 ascorbic acid (vitamin C) 1,000 mg 500 mg PO DAILY tab 09/21/18 tablet hydrochlorothiazide 25 mg tablet 12.5 mg PO DAILY tab 09/21/18 rosuvastatin 10 mg tablet 5 mg PO DAILY tab 09/21/18 Rosuvastatin Calcium [Crestor] 5 mg PO QHS 10/02/18 - Allergies Allergies/Adverse Reactions: Allergies atorvastatin [From Lipitor] Adverse Reaction (Verified 09/21/18 13:01) Diarrhea, vomiting, myalgias - Sleep Disorder Evaluation Hx of Sleep Apnea: Yes Do you snore loudly (louder than talking or can be heard through closed doors)?: Yes - currently wears CPAP at since 2007. Advanced Directives - Advanced Directives Power of Radar Systems Engineer: Yes Living Will: Yes Advance Directives Information Provided: No Advance Directives on File: Yes - should be on file from all the visits made DNR Order?:: No - MOLST See MOLST form: No Past Medical History - Past Medical Illness Medical History: Past Medical History (Last Reviewed 09/20/18 @ 10:56 by Kiara Patton) Abnormal stress echo (Acute) R94.39 Ischemic cardiomyopathy (Chronic) I25.5 EF 45% per echo 01/10/2018 Atherosclerosis of coronary artery of [place] heart without angina pectoris (Chronic) I25.10 PCI/EARL-Prox LAD w/ 3.0 x 32 Promus Synergy EARL and POBA to the ostium of the D1 08/24/17; EARL of Proximal RCA (4.0 X 38 mm Promus Synergy) 08/22/2018; EARL of OM 1 (2.25 X 16 Promus Synergy) and EARL of mid LCX (2.25 X 12 Promus Synergy) on 09/07/2018 MEERA (obstructive sleep apnea) (Chronic) G47.33 Non-STEMI (non-ST elevated myocardial infarction) (Chronic) I21.4 Hypertension (Chronic) I10 Hypercholesterolemia (Chronic) E78.00 Tobacco abuse (Chronic) Z72.0 - Past Surgical History Surgical History: Past Surgical History (Last Reviewed 09/20/18 @ 10:56 by Kiara Patton) History of coronary artery stent placement (Chronic) Onset Date: 09/07/18 Z95.5 PCI/EARL-Prox LAD w/ 3.0 x 32 Promus Synergy EARL and POBA to the ostium of the D1 08/24/17; EARL of Proximal RCA (4.0 X 38 mm Promus Synergy) 08/22/2018; 09/07/2018: PTCA/EARL of proximal OM#1 with a 2.25 x 16 Promus Synergy, PTCA/EARL mid LCX with a 2.25 x 12 Promus Synergy History of bilateral knee arthroplasty Z96.653 right foot surgery Surgical History: total knee arthroplasty - Both knees, - - Right foot surgery including bunionectomy - Family History Summary Family History: Family History (Last Reviewed 09/20/18 @ 10:56 by Kiara Patton) Other Pacemaker- mother Social History - Smoking History Smoking Status: Former smoker Years Smokin Packs Smoked per Day: 1 Hx Smoking Cessation Date: 08/20/2018 Hx Tobacco Use: Yes Hx Smoking Exposure: No - Alcohol Use Alcohol Usage: No - Substance Abuse Hx Substance Use: No - Occupation Occupation (List type of work in comments):: Retired - Hobbies, Recreation, Social Activities Hobbies: Other - outdoor hunting fall, fishing, 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 Social Environment - Status Marital Status: Single - single 40 years - Current Living Arrangements Living Environment:: Spouse - Children How many children do you have?: 2 Do any of your children live nearby?: Yes - [facility] and [place] area - Safety Do you feel safe in your surroundings?: Yes - Assistance Do you need any assistance at home?: none Review of Systems - Review of Systems Hints: Right click = Denies (Slash). Left click = Reports ([place]) Review of Present Symptoms: Reports: Shortness of Breath with Exertion, Fatigue - pronounced, Appetite - Normal, Appetite - Special Diet - increase fiber intake carbs <60 day, more fruits vegetables, no processed foods or sugars, Sleep - No rmal. Denies: Shortness of Breath at Rest, Dizziness/Lightheadedness, Heart Arrhythmia/Irregularities, Sexual Changes - Pain Is Patient Pain Free?: No Pain Location: none Pain Level: 0/10 Risk Factor Assessment - Vital Signs Temperature: 98.7 F Respiratory Rate: 16 Blood Pressure: 120/60 - Pulse Pulse Rate: 84 - Hypertension How long have you been treated?: Aug 2017 Blood Pressure Sitting - Right Arm: 120/60 - Obesity Height: 5 ft 11 in Weight:: 244 lb Weight in Pounds: 244.0 lbs Weight Source: Estimated by Patient Body Mass Index (BMI): 34.0 Nutritional Referral for Obesity: Yes - Physical Inactivity Physical Inactivity: None - Risk Stratification Risk Guidelines: Lowest Risk: Risk Factor for Smoking, Risk Factor for Dyslipidemia, Risk Factor for Diabetes, Risk Factor for Hypertension, Risk Factor for Depression, Highest Risk: Risk Factor for Obesity, Risk Factor for Sedentary Lifestyle - For Smoking Smoking Risk Guidelines: Smoking Low Risk: None or quit greater than 6 months ago. Smoking Moderate Risk: Smoker or quit 6 months or less ago. Smoking High Risk: Smoker - For Dyslipidemia Dyslipidemia Risk Guidelines: Low Risk: Moderate Risk: High Risk: 15-25% fat 25.1-29% fat >/= 30% fat. <7% sat fat 7-9% sat fat >9% sat fat. <150 mg chol 150-299 mg chol >/= 300 mg chol. LDL <100 LDL 100-129 LDL >/= 130. Chol/HDL ratio <5.0 Chol/HDL ratio 5.0-6.0 Chol/HDL ratio >6.0. Triglycerides <100 Triglycerides 100-149 Triglycerides >/= 150 - For Diabetes Mellitus Diabetes Risk Guidelines: Diabetes Low Risk: HgA1c <6.5% and/or FBG <120. Diabetes Moderate Risk: HgA1c 6.6-7.9% and/or FBG 120-180. Diabetes High Risk: HgA1c >/= 8% and/or FBG >180 - For Obesity/Overweight Obesity/Overweight Risk Guidelines: Obesity Low Risk: BMI <25.0. Obesity Moderate Risk: BMI 25-29.9. Obesity High Risk: BMI >/= 30.0 - For Hypertension Hypertension Risk Guidelines: Hypertension Low Risk: Systolic <120 and Diastolic <80. Hypertension Moderate Risk: Systolic 120-139 and Diastolic 80-89. Hypertension High Risk: Systolic >/= 140 and Diastolic >/= 90 - For Sedentary Lifestyle Sedentary Lifestyle Risk Guidelines: Sedentary Lifestyle Low Risk: >/= 1,500 kcal/week. Sedentary Lifestyle Moderate Risk: 700-1,499 kcal/week. Sedentary Lifestyle High Risk: < 700 kcal/week - For Depression Depression Risk Guidelines: Depression Low Risk: Not clinically depressed. Depression Moderate Risk: Mildly depressed. Depression High Risk: Clinically depressed - Family History Family History: Family History (Last Reviewed 09/20/18 @ 10:56 by Kiara Patton) Other Pacemaker- mother Motivation - Motivation to Participate On a scale of 1 to 10, how prepared are you to commit to attending program?: 10 What do you see as barriers to successfully being able to complete the program?: none What do you see as the benefits of succesfully completing the program? In other words, what do you hope to get out of participating in the program?: increased knowledge of health, loss of weight, lowering risks Are there issues you are dealing with that will interfere with completing the program?: none Do you have a spouse or signficant other, family or friends who will help support you to complete the program?: yes
[2018-10-02 13:35] VITALS: BP 120/60; PULSE 84; RESP 16; TEMP 37.1; BMI 34.0
--- NOTE | 2018-10-02 14:30 | PCM.CR.ITP ---
General Information - General Information Admitting Diagnosis: PCI W/STENT, NSTEMI - Education/Goals Barriers to Learning: None Individual Counseling: Initial Assessment: Abnormal Cholesterol Levels, High Blood Pressure, Overweight/Obesity, Diabetes - BORDERLINE DM Cardiac Rehabilitation Goals: 1. Maintain the individual as the primary focus of care. 2. To improve the patient's quality of life. 3. Identification of cardiac risk factors and provide cardiac risk factor management. 4. Enhance the psychosocial status of the patient. 5. Reconditioning enough to allow the patient to resume customary activities. 6. Control symptoms of cardiac disease Scale for measuring improvement of personal goals: Enter appropriate number in Comments. 2 = Unchanged. 3 = Slightly Better. 4 = Moderate Improvement. 5 = Met my Goal Personal Goals: Initial Assessment: Improve management of stress and emotions, Improve energy level, Participate in home exercise program, Get back to work, or to resume activities faster, Improve knowledge of cardiac disease, Improve muscle strength and endurance, Improve diet and eating habits (eat healthier), Control risk factors (learn risk factor modification) Exercise - Initial Assessment - Visit Date of Eval: 10/02/18 - START 10/05/2018 - Stages of Change Stages of Change:: Action - Exercise Prescription Mode:: Treadmill, Rower, Airdyne, NuStep Angina with exercise?: No Target Heart Rate:: 106-115 - Hypertension Do any of the following apply?: Yes, Medication Resting Blood Pressure:: 122/62 - Intervention Home Exercise/Activity Goal:: Sitting Time <3 hrs/day - Education Goals:: Warm-up, RPE KAROLYN Scale, S/S, Safe Exercise, Self-Monitoring - Exercise Program Goals Exercise Program Goals: Aerobic Activity >30 min Nutrition - Initial Assessment - Program Goals Nutrition Program Goals: LDL <70. Total Cholesterol <200. HDL >45. Triglycerides <150. HgbA1C <7%. BMI <25 - Visit Date of Assessment:: 10/02/18 - Stages of Change Stages of Change:: Action - Diabetes Diabetes:: No Insulin: No Non-Insulin Dependent?: Yes - METFORMIN Do you monitor your blood sugar at home?: No - Weight Management Height: 5 ft 11 in Weight:: 244 lb Body Fat %:: 34.0 - Intervention Referral to dietitian:: Yes Referral to Diabetic Clinic:: Yes Will attend diet classes:: Yes - Education Gave educational materials for:: Signs & symptoms of hypoglycemia, Signs & symptoms of hyperglycemia, Relate diabetes to coronary artery disease, Healthy eating Tobacco - Initial Assessment - Program Goals Tobacco Program Goals: Complete smoking cessation. Attend education classes. Improve Knowledge Test score - Stage of Change Stages of Change:: Action - Learning Barriers Learning Barriers: Vision, Ready to Learn - Family Support Do you have family support?: Yes - FRIENDS - Tobacco Use Tobacco Use: Non-smoker How long ago did you quit using tobacco products?: Greater than or equal to 6 months ago Do you use smokeless tobacco?: No - Intervention Smoking Cessation Referral:: No Individual Education/Counseling:: No Education Schedule Given:: Yes - Education Gave educational material for:: Coronary artery disease, Risk factors, Sexuality, Medical compliance, Cardiac A&P, Angina signs & symptoms Psychosocial - Initial Assess - Target Goals Target Goals: Assess presence or absence of depression. Using a valid screening tool, maximizes coping skills. Positive support system - Stages of Change Stages of Change:: Action - Psychosocial Test Tool Used:: HANDS Depression Questionnaire - Intervention PS - Interventions: Yes Attend Stress Management Classes, No Referral to Mental Health, No Referral to [facility] Case Management, No Referral to Physician, No Uses Stress Management Skills - Education Gave educational materials for:: Coping techniques, Signs & symptoms of depression, Stress management, Relaxation techniques - Patient/Program Goal Preventative Medication(s):: Aspirin, Clopidogrel, Beta richy, Statin/lipid - Assistive Devices Assistive Devices:: None Fall Risk Assessed:: Yes Patient Health Questionnaire Initial Assessment 1. Little interest or pleasure in doing things: Several days 2. Feeling down, depressed, or hopeless: Several days 3. Trouble falling or staying asleep, or sleeping too much: Several days 4. Feeling tired or having little energy: Several days 5. Poor appetite or overeating: Several days 6. Feeling bad about yourself -- or that you are a failure or have let yourself or your family down: Several days 7. Trouble concentrating on things, such as reading the newspaper or watching television: Several days 8. Moving or speaking so slowly that other people could have noticed. Or the opposite - being so fidgety or restless that you have been moving around a lot more than usual: Not at all 9. Thoughts that you would be better off , or of hurting yourself in some way: Not at all How difficult have these problems made it for you to do your work, take care of things at home, or get along with other people?: Somewhat difficult Total Score: 7 JEN-Q SV Test - Statements CAD is a disease of the arteries in the heart: False Examples of risk factors for heart disease: True Angina is chest pain or discomfort: True The benefits of resistance training include: True Eating more meat and dairy products: False Anti-platelet medications such as aspirin are important: True The only effective way to manage stress: False An exercise warm-up slowly increases heart rate: I Don't Know Prepared, processed foods usually have high sodium: True Depression is common after a heart attack: True The statin medications lower cholesterol: True To control blood pressure, lower the amount of sodium: True If someone gets chest discomfort during walking: False Transfats are partially hydrogenated vegetable oils: I Don't Know Sleep apnea that is not treated increases the risk: True To control cholesterol, one should become a vegetarian: False Someone knows if he/she is exercising at the right level: I Don't Know Diabetes cannot be prevented with exercise & health eating: True Stress is a large risk for heart attack: True A diet that can help lower blood pressure is rich in: True - Total Score Total Correct Responses: 15 Self-Efficacy Initial Assessment We would like to know how confident you are in doing certain activities. Please select your confidence level for:: Select your confidence level for the following using the scale 1-10 where 1 is not at all confident and 10 is totally confident. Your score is the average of all 6 responses. Fatigue: How confident are you that you can keep the fatigue caused by your disease from interfering with the things you want to do? Select Number: 1 Physical Discomfort or Pain: How confident are you that you can keep the physical discomfort or pain of your disease from interfering with the things you want to do? Select Number: 1 Emotional Distress: How confident are you that you can keep the emotional distress caused by your disease from interfering with the things you want to do? Select Number: 5 Other Symptoms or Health Problems: How confident are you that you can keep other symptoms or health problems from interfering with the things you want to do? Select Number: 5 Different Tasks and Activities: How confident are you that you can do the different tasks and activities needed to manage your health condition so as to reduce your need to see a doctor? Select Number: 5 Medication: How confident are you that you can do things other than just taking medication to reduce how much your illness affects your everyday life? Select Number: 8 Total Score:: 4 Nutrition Survey - Nutrition Survey Instructions Scoring Instructions: Scoring is as follows: Yes = 1 points. No = 0 point. Patient score that is >/=12 is considered to be at potential nutritional risk and could benefit from a referral to a registered dietitian. - Nutrition Survey Initial Have you lost >10 lbs over the past 2 months without trying?: No Are you following a special diet at home for diabetes, low fat, or low salt?: Yes Are you interested in meeting with a dietitian for help understanding your diet?: Yes - DIET PLANNING TO INCREASE GOOD CHOLESTEROL ADN CONTROL DM SINCE BEEN DIAGNOSED BORDERLINE DIABETIC Do you eat less than 3 meals a day?: Yes Do you eat fatty meats (carr, sausage, ribs, etc), fried foods, desserts, large amounts of salad dressings, margarine, butter, or cheese most days?: No Do you have food allergies? [Enter types in comment field]: No Do you eat in restaurants more than 3 times a week?: No Do you season food with salt, seasoning salt, or garlic salt?: No Do you used canned, boxed, frozen meals, or soups, seasoning packets?: No Total Score:: 3
[2018-10-02 14:37] VITALS: BP 122/62
== END ==
PROVIDERS: Family Provider Family Medicine; PCP Family Medicine; Referring Provider Internal Medicine Cardiovascular Disease; Visit Provider Internal Medicine Cardiovascular Disease
DX: Z95.5 Presence of coronary angioplasty implant and graft (principal)

== ENCOUNTER 2018-10-15 13:00 | Outpatient (RCR) | payer MEDICARE, SELFPAY ==
[2018-08-22 13:48] VITALS: BMI 33.4
[2018-10-02 13:35] VITALS: BMI 34.0
== END 2018-10-18 23:59 ==
LOC: CR 13:00
PROVIDERS: Family Provider Family Medicine; PCP Family Medicine; Referring Provider Internal Medicine Cardiovascular Disease; Visit Provider Internal Medicine Cardiovascular Disease
DX: I25.10 Atherosclerotic heart disease of native coronary artery without angina pectoris (principal); I21.4 Non-ST elevation (NSTEMI) myocardial infarction; Z95.5 Presence of coronary angioplasty implant and graft
CPT/HCPCS: 93798

== ENCOUNTER 2018-11-14 13:00 | Outpatient (RCR) | payer MEDICARE, SELFPAY ==
[2018-08-22 13:48] VITALS: BMI 33.4
[2018-10-02 13:35] VITALS: BMI 34.0
--- NOTE | 2018-11-02 09:10 | CR.ITP_ITS ---
Exercise - 30-day Assessment - Visit Date of Eval: 11/02/18 Session #:: 11 - Patient is doing 18 sessions due to insurance co-pay. - Stages of Change Stages of Change:: Action - Exercise Prescription Mode:: Treadmill, Airdyne, NuStep Frequency (x/week): 3 Duration:: 30-45 METs - Progression: 0.5-1 MET as tolerated: 4 Target Heart Rate:: 120-128 - Hypertension Resting Blood Pressure:: 100/70 Peak Exercise Blood Pressure:: 116/70 Medication Changes:: No - Intervention Home Exercise/Activity Goal:: Moderate Exercise 30 min/day x 5 days/wk - Education Goals:: Warm-up, RPE KAROLYN Scale, S/S, Safe Exercise, Self-Monitoring - Exercise Program Goals Exercise Program Goals: Aerobic Activity >30 min Nutrition - Initial Assessment - Program Goals Nutrition Program Goals: LDL <70. Total Cholesterol <200. HDL >45. Triglycerides <150. HgbA1C <7%. BMI <25 - Diabetes Do you monitor your blood sugar at home?: No Nutrition - 30-Day Assessment - Program Goals Nutrition Program Goals: LDL <70. Total Cholesterol <200. HDL >45. Triglycerides <150. HgbA1C <7%. BMI <25 - Visit Date of Eval: 11/02/18 - Stages of Change Stages of Change:: Action - Lipids Has the patient seen the dietitian?: No - Diabetes Diabetes:: Yes Insulin: No Non-Insulin Dependent?: Yes - Weight Management Weight:: 243 lb - Intervention Referral to dietitian:: No Referral to Diabetic Clinic:: Yes Will attend diet classes:: No - Education Attended class for:: Signs & symptoms of hypoglycemia, Signs & symptoms of hyperglycemia, Relate diabetes to coronary artery disease, Healthy eating Tobacco - Initial Assessment - Program Goals Tobacco Program Goals: Complete smoking cessation. Attend education classes. Improve Knowledge Test score - Learning Barriers Learning Barriers: Vision Tobacco - 30-Day Assessment - Program Goals Tobacco Program Goals: Complete smoking cessation. Attend education classes. Improve Knowledge Test score - Stage of Change Stages of Change:: Action - Learning Barriers Learning Barriers: Participates in education - Family Support Do you have family support?: Yes - Tobacco Use Tobacco Use: Non-smoker Do you use smokeless tobacco?: No - Intervention Smoking Cessation Referral:: No Individual Education/Counseling:: No Education Schedule Given:: Yes - Education Attended class for:: Coronary artery disease, Risk factors, Sexuality, Medical compliance, Cardiac A&P, Angina signs & symptoms Psychosocial - Initial Assess - Target Goals Target Goals: Assess presence or absence of depression. Using a valid screening tool, maximizes coping skills. Positive support system - Psychosocial Test Tool Used:: HANDS Depression Questionnaire - Assistive Devices Fall Risk Assessed:: Yes Psychosocial - 30-Day Assess - Target Goals Target Goals: Assess presence or absence of depression. Using a valid screening tool, maximizes coping skills. Positive support system - Stages of Change Stages of Change:: Action - Psychosocial Test Tool Used:: HANDS Depression Questionnaire - Intervention PS - Interventions: Yes Attend Stress Management Classes, Yes Uses Stress Management Skills, No Referral to Mental Health, No Referral to [facility] Case Management, No Referral to Physician - Education Attended classes for:: Coping techniques, Signs & symptoms of depression, Stress management, Relaxation techniques - Patient/Program Goal Preventative Medication(s):: Aspirin, Clopidogrel, Beta richy, Statin/lipid - Assistive Devices Assistive Devices:: None Fall Risk Assessed:: Yes Patient Health Questionnaire 30-Day Re-eval Assessment 1. Little interest or pleasure in doing things: Several days 2. Feeling down, depressed, or hopeless: Several days 3. Trouble falling or staying asleep, or sleeping too much: Several days 4. Feeling tired or having little energy: Several days 5. Poor appetite or overeating: Several days 6. Feeling bad about yourself -- or that you are a failure or have let yourself or your family down: Several days 7. Trouble concentrating on things, such as reading the newspaper or watching television: Several days 8. Moving or speaking so slowly that other people could have noticed. Or the opposite - being so fidgety or restless that you have been moving around a lot more than usual: Not at all 9. Thoughts that you would be better off , or of hurting yourself in some way: Not at all How difficult have these problems made it for you to do your work, take care of things at home, or get along with other people?: Somewhat difficult Total Score: 7 Self-Efficacy 30-Day Re-eval Assessment We would like to know how confident you are in doing certain activities. Please select your confidence level for:: Select your confidence level for the following using the scale 1-10 where 1 is not at all confident and 10 is totally confident. Your score is the average of all 6 responses. Fatigue: How confident are you that you can keep the fatigue caused by your disease from interfering with the things you want to do? Select Number: 3 Physical Discomfort or Pain: How confident are you that you can keep the physical discomfort or pain of your disease from interfering with the things you want to do? Select Number: 3 Emotional Distress: How confident are you that you can keep the emotional distress caused by your disease from interfering with the things you want to do? Select Number: 6 Other Symptoms or Health Problems: How confident are you that you can keep other symptoms or health problems from interfering with the things you want to do? Select Number: 7 Different Tasks and Activities: How confident are you that you can do the different tasks and activities needed to manage your health condition so as to reduce your need to see a doctor? Select Number: 8 Medication: How confident are you that you can do things other than just taking medication to reduce how much your illness affects your everyday life? Select Number: 9 Total Score:: 6
[2018-11-02 09:11] VITALS: BP 100/70; BP 116/70
== END 2018-11-15 23:59 ==
LOC: CR 13:00
PROVIDERS: Family Provider Family Medicine; PCP Family Medicine; Referring Provider Internal Medicine Cardiovascular Disease; Visit Provider Internal Medicine Cardiovascular Disease
DX: I25.10 Atherosclerotic heart disease of native coronary artery without angina pectoris (principal); I21.4 Non-ST elevation (NSTEMI) myocardial infarction; Z95.5 Presence of coronary angioplasty implant and graft
CPT/HCPCS: 93798

== ENCOUNTER 2018-11-19 14:39 | Outpatient (RCR) | payer MEDICARE, SELFPAY ==
[2018-08-22 13:48] VITALS: BMI 33.4
[2018-10-02 13:35] VITALS: BMI 34.0
[2018-11-16 01:23] VITALS: BP 100/70; BP 116/70
== END 2018-12-16 23:59 ==
LOC: CR 14:39
PROVIDERS: Family Provider Family Medicine; PCP Family Medicine; Referring Provider Internal Medicine Cardiovascular Disease; Visit Provider Internal Medicine Cardiovascular Disease
DX: I25.10 Atherosclerotic heart disease of native coronary artery without angina pectoris (principal); I21.4 Non-ST elevation (NSTEMI) myocardial infarction; Z95.5 Presence of coronary angioplasty implant and graft
CPT/HCPCS: 93798

== ENCOUNTER → 2018-12-26 08:01 | Outpatient (CLI) | payer MEDICARE, SELFPAY ==
[2018-08-22 13:48] VITALS: BMI 33.4
[2018-09-21 13:00] VITALS: BMI 34.0
[2018-10-02 13:35] VITALS: BMI 34.0
--- NOTE | 2018-12-26 08:04 | ECHOCS_ITS ---
Reason For Study: CHF Procedure This was a 2D Doppler, Color Flow transthoracic echocardiogram. Exam performed in department. Left Ventricle Mildly dilated left ventricle. The estimated ejection fraction is 45 %. Stage 1 diastolic dysfunction. Septal motion consistent with IVCD. There are regional wall motion abnormalities as specified. Mid-Anterior : Mildly hypokinetic. Mid-anteroseptal : Mildly hypokinetic. Anterior Evant : Mildly hypokinetic. Right Ventricle Mildly dilated right ventricle. Normal systolic function. Atria Normal left atrium. Normal right atrium. Normal atrial septum. Mitral Valve The mitral valve is structurally normal. No prolapse or stenosis seen. Tricuspid Valve Normal tricuspid valve. Trivial tricuspid valve insufficiency. Right ventricular systolic pressure estimated to be 33 mmHg. Aortic Valve Trisinus/trileaflet aortic valve. Normal aortic valve. Pulmonic Valve Normal pulmonic valve. Great Vessels Normal aortic root. Normal arch. Normal inferior vena cava. Inferior vena cava collapse with sniff. Medication 22 gauge I.V. with prn adaptor inserted into right arm. Diluted definity 2ml given slow IV push to enhance endocardial definition. MMode/2D Measurements & Calculations LVIDd: 4.7 cm IVSd: 1.2 cm Ao root diam: 3.7 cm LVIDs: 3.7 cm LVPWd: 1.2 cm LA dimension: 3.9 cm RVDd: 3.9 cm FS: 20.6 % LAV(MOD-bp): 53.8 ml LVAd ap4: 41.7 cm2 SV(MOD-sp4): 69.2 ml LAV(MOD-bp) Indexed: 23.8 ml/m2 EDV(MOD-sp4): 160.0 ml LAV(MOD-sp2): 53.1 ml EDV(sp4-el): 162.0 ml LAV(MOD-sp4): 51.0 ml LVAs ap4: 29.1 cm2 ESV(MOD-sp4): 90.8 ml ESV(sp4-el): 94.5 ml EF(MOD-sp4): 43.3 % EF(sp4-el): 41.6 % SV(sp4-el): 67.4 ml LA A4 area: 19.0 cm2 RA A4 area: 19.6 cm2 Time Measurements MV dec time: 0.25 sec Doppler Measurements & Calculations MV E max james: 76.9 cm/sec Lat Peak E' James: 6.2 cm/sec Med Peak E' James: 5.9 cm/sec MV A max james: 88.2 cm/sec E/E' lat: 12.4 E/E' med: 12.9 MV E/A: 0.87 MV V2 max: 104.9 cm/sec MV P1/2t max james: 77.9 cm/sec Ao V2 max: 130.3 cm/sec MV max P.4 mmHg MV P1/2t: 116.1 msec Ao max P.8 mmHg MV V2 mean: 62.0 cm/sec Ao V2 mean: 85.1 cm/sec MV mean P.8 mmHg MV dec slope: 196.5 cm/sec2 Ao mean P.3 mmHg MV V2 VTI: 32.1 cm MVA(P1/2t): 1.9 cm2 Ao V2 VTI: 26.0 cm LV V1 max: 100.9 cm/sec MR max james: 411.5 cm/sec PA V2 max: 88.6 cm/sec LV V1 max P.1 mmHg MR max P.7 mmHg LV V1 mean P.2 mmHg LV V1 mean: 68.8 cm/sec LV V1 VTI: 22.7 cm TR max james: 265.0 cm/sec TR max P.1 mmHg Interpretation Summary Mildly dilated left ventricle. The estimated ejection fraction is 45 %. Stage 1 diastolic dysfunction. There are regional wall motion abnormalities as specified. Trivial tricuspid valve insufficiency. Right ventricular systolic pressure estimated to be 33 mmHg. Compared to echo report dated 01/10/2018, no appreciable changes noted. The study was technically difficult. Contrast injection was performed. Ordering Physician: Arias Wilson Referring Physician: Arias Wilson Performed By: Chito Thapa RCS
== END ==
PROVIDERS: Family Provider Family Medicine; PCP Family Medicine; Referring Provider Nurse Practitioner Family; Visit Provider Nurse Practitioner Family
DX: I50.9 Heart failure, unspecified (principal); I25.5 Ischemic cardiomyopathy; I10 Essential (primary) hypertension; E78.00 Pure hypercholesterolemia, unspecified; Z95.5 Presence of coronary angioplasty implant and graft
CPT/HCPCS: 93306; Q9957; A4216; C8929

== ENCOUNTER → 2018-12-28 13:34 | Outpatient (CLI) | payer MEDICARE, SELFPAY ==
[2018-08-22 13:48] VITALS: BMI 33.4
[2018-10-02 13:35] VITALS: BMI 34.0
[2018-12-28 14:34] LABS: AST(SGOT) 42 U/L (15-37); Alanine Aminotransfer ALT/SGPT 59 U/L (16-61); Albumin, Serum 3.7 g/dL (3.2-5.0); Alkaline Phosphatase 67 U/L (45-117); Bilirubin, Direct 0.11 mg/dL (0.00-0.30); Cholesterol 140 mg/dL (200); Globulin 3.4 g/dL (2.2-4.2); High Density Lipoprotein 29 mg/dL; Protein, Total 7.1 g/dL (6.4-8.2); Triglycerides 157 mg/dL; Very Low Density Lipoprotein 31 mg/dL (5-40)
== END ==
PROVIDERS: Family Provider Family Medicine; PCP Family Medicine; Referring Provider Nurse Practitioner Family; Visit Provider Nurse Practitioner Family
DX: E78.00 Pure hypercholesterolemia, unspecified (principal); I10 Essential (primary) hypertension; Z95.5 Presence of coronary angioplasty implant and graft; I25.5 Ischemic cardiomyopathy
CPT/HCPCS: 36415; 80061; 80076

== ENCOUNTER → 2019-03-13 11:29 | Outpatient (CLI) | payer MEDICARE, SELFPAY ==
[2018-08-22 13:48] VITALS: BMI 33.4
[2019-01-28 10:55] VITALS: BMI 32.8
[2019-03-13 12:00] LABS: Absolute Neutrophil Count 4.8 X10^3/uL (2.0-7.7); Basophil# 0.02 X10^3/uL; Basophil% 0.3 % (0-1); Eosinophil# 0.42 X10^3/uL; Eosinophils% 5.5 % (0-5); Hematocrit 43.3 % (40-54); Hemoglobin 14.6 g/dl (13.0-16.5); Lymphocyte % 25.1 % (19-41); Mean Corp Hgb Conc 33.7 g/gl (32-36); Mean Corpuscular Hgb 31.5 pg (27.0-32.0); Mean Corpuscular Volume 93.3 fL (80-94); Monocyte# 0.39 X10^3/uL; Monocyte% 5.2 % (0-10); Neutrophil # 4.81 X10^3/uL (2.7-7.7); Neutrophil % 63.5 % (47-70); Platelet Count 237 K/mm3 (150-450); RBC Distribution Width CV 12.8 % (11.6-14.6); RBC Distribution Width SD 43.5 fl (35.1-43.9); Red Blood Count 4.64 M/mm3 (4.6-6.2); White Blood Count 7.6 K/mm3 (4.4-11.0)
[2019-03-13 12:03] LABS: POSITIVE COUNT NO; POSITIVE DIFFERENTIAL NO; POSITIVE MORPHOLOGY NO
[2019-03-13 12:27] LABS: AST(SGOT) 22 U/L (15-37); Alanine Aminotransfer ALT/SGPT 36 U/L (16-61); Albumin, Serum 3.8 g/dL (3.2-5.0); Alkaline Phosphatase 72 U/L (45-117); Bilirubin, Direct 0.12 mg/dL (0.00-0.30); Cholesterol 157 mg/dL (200); Globulin 3.8 g/dL (2.2-4.2); High Density Lipoprotein 32 mg/dL; Protein, Total 7.6 g/dL (6.4-8.2); Triglycerides 219 mg/dL; Very Low Density Lipoprotein 44 mg/dL (5-40)
== END ==
PROVIDERS: Family Provider Family Medicine; PCP Family Medicine; Referring Provider Internal Medicine Cardiovascular Disease; Visit Provider Internal Medicine Cardiovascular Disease
DX: I25.10 Atherosclerotic heart disease of native coronary artery without angina pectoris (principal); E78.00 Pure hypercholesterolemia, unspecified
CPT/HCPCS: 36415; 80061; 80076; 85025

== ENCOUNTER → 2019-09-10 09:57 | Outpatient (CLI) | payer MEDICARE, SELFPAY ==
[2018-08-22 13:48] VITALS: BMI 33.4
[2019-08-22 10:38] VITALS: BMI 33.7
--- NOTE | 2019-09-10 09:58 | STEWCON_ITS ---
Reason For Study: Pre-op clearance Stress Results Protocol: Evan Protocol WITH DEFINITY Maximum Predicted HR: 150 bpm Target HR: 128 bpm % Maximum Predicted HR: 96 % DurationHeart Rate Stage (mm:ss) (bpm) BP Comment BASELINE 82 142/888cc Definity used during stress Evan Protocol Stage 1 3:00 114 130/84 Evan Protocol Stage 2 3:00 137 138/84 Evan Protocol Stage 3 0:29 144 / Recovery 90 124/90 Stress Duration: 6:29 mm:ss Maximum Stress HR: 144 bpm Baseline Echocardiogram Findings The estimated ejection fraction is 40 %. Stress Echo Wall motion Data Resting WM Intermediate WM Stress WM Resting Wall Motion Wall Motion Stress Basal anteroseptal: Severely All law[place] appear to contract Hypokinetic. during exercise, no focal wall Mid-Anterior : Severely motion abnormalities outside of Hypokinetic. baseline. Mid-Lateral : Mildly hypokinetic. Mid-anteroseptal : Severly Hypokinetic. EKG Data The baseline ECG displays normal sinus rhythm. The patient exercised according to the regular Evan protocol for a total duration of 6:29. The maximum heart rate attained was 150 beats per minute. This was 100% of maximum predicted heart rate. The patient exercised into stage 3 of the Evan protocol. During stress, there were no ST or T wave changes noted to suggest ischemia. No clinical angina was noted. Interpretation Summary The estimated ejection fraction is 40 %. All lawrence appear to contract during exercise, no focal wall motion abnormalities outside of baseline. Normal, adequate, treadmill echocardiogram. Negative for ischemia by EKG and echocardiographic criteria. Rare PVCs noted. Appropriate blood pressure response to exercise. Average exercise capacity for age. Final LVEF of 50%. Decreased sensitivity due to poor echo windows and baseline anteroseptal hypokinesis. Test terminated due to the attainment of target heart rate and dyspnea. No complications. The study was technically difficult. Contrast injection was performed. Ordering Physician: Amado Henriquez Referring Physician: Amado Henriquez Performed By: Suzi Hughes, ROXY, RVT
== END ==
PROVIDERS: Family Provider Family Medicine; PCP Family Medicine; Referring Provider Internal Medicine Cardiovascular Disease; Visit Provider Internal Medicine Cardiovascular Disease
DX: Z01.810 Encounter for preprocedural cardiovascular examination (principal); I25.5 Ischemic cardiomyopathy; I25.10 Atherosclerotic heart disease of native coronary artery without angina pectoris; Z95.5 Presence of coronary angioplasty implant and graft
CPT/HCPCS: 93017; 93350; Q9957; A4216; C8928

== ENCOUNTER 2020-02-12 10:17 | Emergency (ER) | payer MEDICARE, OTHER, SELFPAY ==
[2018-08-22 13:48] VITALS: BMI 33.4
[2019-08-22 10:38] VITALS: BMI 33.7
[2020-02-12 10:18] VITALS: BP 140/74; PULSE 102; RESP 17; TEMP 36.3; O2SAT 96; BMI 31.7
--- NOTE | 2020-02-12 10:35 | ED.VIS.GEN ---
History of Present Illness Chief Complaint: Hyperglycemia Informant: Patient Onset: Days Narrative: Patient presents secondary to high blood sugar. Over the weekend he started getting blood sugar readings that were high on his machine. He believes his machine goes up to 600. He previously been on 500 mg of metformin once a day. He contacted his PCP in [facility], Dr. Luevano as well as nurse practitioner Alise at the [facility]. He was instructed to increase his metformin to 1000 mg twice a day. He started that 2 days ago. Patient states he was instructed to come the emergency room that day but had other things to do so presents this morning. Blood sugar today was 315. He did take 1000 mg of metformin prior to arrival in the ER. - Past Medical History (1) Atherosclerosis of coronary artery of [place] heart without angina pectoris Status: Chronic Comment: PCI/EARL-Prox LAD w/ 3.0 x 32 Promus Synergy EARL and POBA to the ostium of the D1 08/24/17; EARL of Proximal RCA (4.0 X 38 mm Promus Synergy) 08/22/2018; EARL of OM 1 (2.25 X 16 Promus Synergy) and EARL of mid LCX (2.25 X 12 Promus Synergy) on 09/07/2018 (2) History of coronary artery stent placement Status: Chronic Comment: PCI/EARL-Prox LAD w/ 3.0 x 32 Promus Synergy EARL and POBA to the ostium of the D1 08/24/17; EARL of Proximal RCA (4.0 X 38 mm Promus Synergy) 08/22/2018; 09/07/2018: PTCA/EARL of proximal OM#1 with a 2.25 x 16 Promus Synergy, PTCA/EARL mid LCX with a 2.25 x 12 Promus Synergy (3) Hypercholesterolemia Status: Chronic (4) Hypertension Status: Chronic (5) Ischemic cardiomyopathy Status: Chronic Comment: EF 45% per echo 01/10/2018 (6) Non-STEMI (non-ST elevated myocardial infarction) Status: Chronic (7) MEERA (obstructive sleep apnea) Status: Chronic Past Medical History - Allergies and Home Meds Allergies/Adverse Reactions: Allergies rosuvastatin [From Crestor] Adverse Reaction (Severe, Verified 02/12/20 10:18) Myalgias atorvastatin [From Lipitor] Adverse Reaction (Verified 02/12/20 10:18) Diarrhea, vomiting, myalgias Primary Care Physician: Dante Luevano MD [Primary Care Provider] - Prior records reviewed: Yes Surgical History: total knee arthroplasty - Both knees, - - Right foot surgery including bunionectomy Smoking Status: Former smoker - Family History Maternal Family History: Family History (Last Reviewed 08/22/19 @ 10:38 by Kiara Patton) Other Pacemaker- mother Family History: Reports: No pertinent history Paternal Family History: Family History (Last Reviewed 08/22/19 @ 10:38 by Kiara Patton) Other Pacemaker- mother Family History: Reports: Cancer - Prostate cancer Review of Systems General: Denies: Chills, Fever Eyes: Denies: Visual changes - bilaterally ENT: Denies: Bilateral ear pain Cardiovascular: Denies: Chest pain Respiratory: Denies: Dyspnea, Cough Gastrointestinal: Denies: Abdominal pain, Nausea, Vomiting, Diarrhea Genitourinary: Denies: Dysuria Musculoskeletal: Denies: Swelling, Extremity Pain Skin: Denies: Rash Neurological: Denies: Headache Hematologic: Denies: Easy bruising Allergy: Denies: Uticaria Physical Exam Vital Signs/Narrative: Vital Signs Temp Pulse Resp BP Pulse Ox 02/12/20 10:18 97.3 F L 102 H 17 140/74 H 96 Inital Vital Signs reviewed: Yes General: Well nourished, Well developed Head: Normocephalic ENT: Moist mucous membranes Neck: Supple Cardiovascular: Regular rate, Regular rhythm Respiratory: No distress Abdomen: Soft, Nontender Extremities: Nontender Skin: Normal color Neurological: Alert, Oriented x3 Psychological: Normal affect Diagnostic/Tx/Re-eval Laboratory Results 02/12/20 02/12/20 02/12/20 10:46 10:55 10:55 WBC 9.0 RBC 4.69 Hgb 14.7 Hct 43.2 MCV 92.1 MCH 31.3 MCHC 34.0 RDW Std Deviation 42.1 RDW Coeff of Hermes 12.5 Plt Count 258 MPV 9.4 Immature Gran % (Auto) 1.000 H Neut % (Auto) 69.4 Lymph % (Auto) 19.8 [place] % (Auto) 6.3 Eos % (Auto) 2.8 Baso % (Auto) 0.7 Absolute Neuts (auto) 6.3 Absolute Lymphs (auto) 1.79 Nucleated RBC % 0 Sodium 131 L Potassium 3.6 Chloride 96 L Carbon Dioxide 24.0 Anion Gap 11 BUN 25 H Creatinine 1.07 Estim Creat Clear Calc 67.44 Est GFR (MDRD) Af Amer 88 Est GFR (MDRD) Non-Af 72 BUN/Creatinine Ratio 23.4 H Glucose 299 H Hemoglobin A1c Calcium 9.5 Urine Color Urine Clarity Urine pH Ur Specific [place] Urine Protein Urine Glucose (UA) Urine Ketones Urine Occult Blood Urine Nitrite Urine Bilirubin Urine Urobilinogen Ur Leukocyte Esterase Urine RBC Urine WBC Ur Squamous Epith Cells Urine Bacteria Urine Mucus POC Glucose 295 H 02/12/20 02/12/20 10:55 12:00 WBC RBC Hgb Hct MCV MCH MCHC RDW Std Deviation RDW Coeff of Hermes Plt Count MPV Immature Gran % (Auto) Neut % (Auto) Lymph % (Auto) [place] % (Auto) Eos % (Auto) Baso % (Auto) Absolute Neuts (auto) Absolute Lymphs (auto) Nucleated RBC % Sodium Potassium Chloride Carbon Dioxide Anion Gap BUN Creatinine Estim Creat Clear Calc Est GFR (MDRD) Af Amer Est GFR (MDRD) Non-Af BUN/Creatinine Ratio Glucose Hemoglobin A1c 11.3 H Calcium Urine Color Yellow Urine Clarity Sl. Cloudy Urine pH 5.0 Ur Specific [place] 1.025 Urine Protein 15 H Urine Glucose (UA) 1000 H Urine Ketones 50 H Urine Occult Blood Negative Urine Nitrite Negative Urine Bilirubin Negative Urine Urobilinogen Normal Ur Leukocyte Esterase Negative Urine RBC 0 SEEN Urine WBC 0 SEEN Ur Squamous Epith Cells 0 SEEN Urine Bacteria 0 SEEN Urine Mucus 0 SEEN POC Glucose - Medical Decision Making Patient was given a liter of IV fluids here. Test results are discussed with him. He did just make medication adjustments 2 days ago and his blood sugar seems to be responding appropriately. He will continue to monitor his blood sugars regularly. ED Disposition - Plan for ED Patient: Disposition: Home or Assisted Living Diagnosis: Hyperglycemia Instructions: ED Diabetic Hyperglycemia Referrals: Dante Luevano MD [Primary Care Provider] - 1 Week if not improving
[2020-02-12] MEDS: 0.9% Normal Saline 1,000 ML 1000 ML IV (10:54)
[2020-02-12 11:00] LABS: Bedside Glucose 295 mg/dL (70-110)
[2020-02-12 11:11] LABS: Absolute Lymphocyte Count 1.79 X10^3/uL (0.83-4.51); Absolute Neutrophil Count 6.3 X10^3/uL (2.0-7.7); Basophil# 0.06 X10^3/uL; Basophil% 0.7 % (0-1); Eosinophil# 0.25 X10^3/uL; Eosinophils% 2.8 % (0-5); Hematocrit 43.2 % (40-54); Hemoglobin 14.7 g/dL (13.0-16.5); Lymphocyte # 1.79 X10^3/ul (4.0); Lymphocyte % 19.8 % (19-41); Mean Corpuscular Hgb 31.3 pg (27.0-32.0); Mean Corpuscular Volume 92.1 fL (80-94); Mean Platelet Vol. 9.4 fl (6.2-12.0); Monocyte# 0.57 X10^3/uL; Monocyte% 6.3 % (0-10); NRBC Flagged by Analyzer 0 % (0-5); Neutrophil # 6.28 X10^3/uL (2.7-7.7); Neutrophil % 69.4 % (47-70); Platelet Count 258 K/mm3 (150-450); RBC Distribution Width CV 12.5 % (11.6-14.6); RBC Distribution Width SD 42.1 fl (35.1-43.9); Red Blood Count 4.69 M/mm3 (4.6-6.2)
[2020-02-12 11:22] LABS: Anion Gap 11 (5-15); BUN 25 mg/dL (7-18); BUN/Creat Ratio 23.4 RATIO (10-20); Calcium,Total 9.5 mg/dL (8.5-10.1); Chloride 96 mmol/L (98-107); Creatinine, Serum 1.07 mg/dL (0.70-1.30); EST Glomerular Filtration Rate 72 mL/min (>60); Est Glom Filt Rate - Afr Amer 88 mL/min (>60); Estimated Creatinine Clearance 67.44 ml/min; Glucose 299 mg/dL (74-106); Potassium 3.6 mmol/L (3.5-5.1); Sodium Level 131 mmol/L (136-145)
[2020-02-12 11:36] LABS: Hemoglobin A1c 11.3 % (3.8-5.6)
[2020-02-12 11:52] LABS: Bacteria 0 SEEN /hpf (None Seen); Color, Urine Yellow (Yellow); Glucose, Dipstick 1000 mg/dl (Normal); Ketone-Dipstick 50 mg/dl (Negative); Leukocyte Esterase-Dipstick Negative /ul (Negative); Mucous, Urine 0 SEEN /hpf (<or=2+); Nitrite-Dipstick Negative (Negative); Occult Blood-Urine Negative /ul (Negative); Protein-Dipstick 15 mg/dl (Negative); Red Blood Cells-Urine 0 SEEN /hpf (0-5); Specific Gravity, Urine 1.025 (1.002-1.030); Squamous Epithelial Cells - UA 0 SEEN /hpf (0-5); Urine Bilirubin Dipstick Negative (Negative); Urine Clarity Sl. Cloudy (Clear); Urine Urobilinogen Normal (Normal); White Blood Cells 0 SEEN /hpf (0-5)
[2020-02-12 11:56] VITALS: BP 114/76; PULSE 89; RESP 16; O2SAT 93
== END 2020-02-12 12:18 | disposition home or self-care (01) ==
PROVIDERS: Emergency Provider Emergency Medicine; PCP Family Medicine
DX: E11.65 Type 2 diabetes mellitus with hyperglycemia (principal); Z79.84 Long term (current) use of oral hypoglycemic drugs; I25.10 Atherosclerotic heart disease of native coronary artery without angina pectoris; E78.00 Pure hypercholesterolemia, unspecified; G47.33 Obstructive sleep apnea (adult) (pediatric); I10 Essential (primary) hypertension; I25.2 Old myocardial infarction; I25.5 Ischemic cardiomyopathy; Z87.891 Personal history of nicotine dependence; Z95.5 Presence of coronary angioplasty implant and graft; Z79.899 Other long term (current) drug therapy
CPT/HCPCS: 80048; 81001; 82962; 83036; 85025; 96360; 99283; J7030

== ENCOUNTER → 2020-04-06 | Outpatient (CLI) | payer MEDICARE, SELFPAY ==
[2018-08-22 13:48] VITALS: BMI 33.4
[2020-03-23 12:39] VITALS: BMI 31.8
--- NOTE | 2020-04-06 07:45 | ECHOCS_ITS ---
Reason For Study: CHF Procedure This was a 2D Doppler, Color Flow transthoracic echocardiogram. The study was technically difficult. Due to body habitus. Contrast injection was performed. Exam performed in department. Left Ventricle Mildly dilated left ventricle. The estimated ejection fraction is 40 %. Stage 1 diastolic dysfunction. There are regional wall motion abnormalities as specified. Right Ventricle Normal size and thickness. Normal systolic function. Atria Normal left atrium. Normal right atrium. Normal atrial septum. Mitral Valve The mitral valve is structurally normal. No prolapse or stenosis seen. Tricuspid Valve Normal tricuspid valve. Unable to estimate RV systolic pressure due to insufficient tricuspid regurgitant envelope. Aortic Valve Normal aortic valve. Trisinus/trileaflet aortic valve. Pulmonic Valve Normal pulmonic valve. Great Vessels Normal aortic root. Mild atherosclerosis of the aortic arch. Normal inferior vena cava. Inferior vena cava collapse with sniff. Pericardium/Pleural No pericardial effusion. Medication 22 gauge I.V. with prn adaptor inserted into right arm. Diluted definity 3.0ml given slow IV push to enhance endocardial definition. MMode/2D Measurements & Calculations LVIDd: 4.7 cm IVSd: 1.2 cm Ao root diam: 3.4 cm LVIDs: 3.7 cm LVPWd: 1.00 cm RVDd: 2.4 cm FS: 20.1 % LAV(MOD-bp): 63.0 ml LVAd ap4: 39.7 cm2 SV(MOD-sp4): 57.1 ml LAV(MOD-bp) Indexed: 27.9 ml/m2 EDV(MOD-sp4): 146.3 ml LAV(MOD-sp2): 47.1 ml EDV(sp4-el): 151.9 ml LAV(MOD-sp4): 63.1 ml LVAs ap4: 29.1 cm2 ESV(MOD-sp4): 89.2 ml ESV(sp4-el): 92.8 ml EF(MOD-sp4): 39.0 % EF(sp4-el): 38.9 % SV(sp4-el): 59.1 ml LA A4 area: 19.0 cm2 LA dimension(2D): 3.9 cm RA A4 area: 15.2 cm2 Time Measurements MV dec time: 0.14 sec Doppler Measurements & Calculations MV E max james: 60.8 cm/sec Lat Peak E' James: 4.5 cm/sec Med Peak E' James: 5.4 cm/sec MV A max james: 95.3 cm/sec E/E' lat: 13.5 E/E' med: 11.3 MV E/A: 0.64 Ao V2 max: 112.8 cm/sec LV V1 max: 104.2 cm/sec PA V2 max: 89.6 cm/sec Ao max P.1 mmHg LV V1 max P.3 mmHg Interpretation Summary Mildly dilated left ventricle. The estimated ejection fraction is 40 %. Stage 1 diastolic dysfunction. There are regional wall motion abnormalities as specified. Unable to estimate RV systolic pressure due to insufficient tricuspid regurgitant envelope. Compared to echo report dated 12/26/2018, LV function and wall motion abnormalities have remained about the same. Unable to quantitate RVSP on this exam. The study was technically difficult. Contrast injection was performed. Ordering Physician: Amado Henriquez Referring Physician: Dante Luevano Performed By: Su Oconnor RDCS, RVT
[2020-04-06 08:56] LABS: AST(SGOT) 16 U/L (15-37); Alanine Aminotransfer ALT/SGPT 34 U/L (16-61); Albumin, Serum 3.9 g/dL (3.2-5.0); Alkaline Phosphatase 72 U/L (45-117); Bilirubin, Direct 0.15 mg/dL (0.00-0.30); Cholesterol 168 mg/dL (200); Globulin 3.9 g/dL (2.2-4.2); High Density Lipoprotein 30 mg/dL; Protein, Total 7.8 g/dL (6.4-8.2); Triglycerides 163 mg/dL; Very Low Density Lipoprotein 33 mg/dL (5-40)
== END | disposition home or self-care (01) ==
LOC: CVS 07:45
PROVIDERS: PCP Family Medicine; Referring Provider Internal Medicine Cardiovascular Disease; Visit Provider Internal Medicine Cardiovascular Disease
DX: E78.00 Pure hypercholesterolemia, unspecified (principal); I50.9 Heart failure, unspecified; I25.5 Ischemic cardiomyopathy
CPT/HCPCS: 36415; 80061; 80076; 93306; Q9957; A4216; C8929

== ENCOUNTER → 2020-10-16 06:42 | Outpatient (CLI) | payer MEDICARE, SELFPAY ==
[2018-08-22 13:48] VITALS: BMI 33.4
[2020-10-06 12:29] VITALS: BMI 32.6
--- NOTE | 2020-10-16 06:48 | ECHOCS_ITS ---
Reason For Study: CAD/ASHD Procedure This was a 2D Doppler, Color Flow transthoracic echocardiogram. The study was technically difficult. Contrast injection was performed. Exam performed in department. Left Ventricle Normal LV size. Mild concentric left ventricular hypertrophy. The estimated ejection fraction is 45 %. Stage 1 diastolic dysfunction. There are regional wall motion abnormalities as specified. Mid- Anterior : Hypokinetic. [place] : Hypokinetic. Mid-anteroseptal : Akinetic. Right Ventricle Normal RV size. Normal systolic function. Atria Normal left atrium. Normal right atrium. Mitral Valve Normal mitral valve. Tricuspid Valve Normal tricuspid valve. Aortic Valve Normal aortic valve. Great Vessels Normal aortic root. The pulmonary artery is normal size. Normal inferior vena cava. Pericardium/Pleural No pericardial effusion. Medication 22 gauge I.V. with prn adaptor inserted into right arm. Diluted definity 5ml given slow IV push to enhance endocardial definition. MMode/2D Measurements & Calculations LVIDd: 4.7 cm IVSd: 1.3 cm Ao root diam: 3.6 cm LVIDs: 3.6 cm LVPWd: 1.2 cm LA dimension: 4.0 cm FS: 23.5 % LAV(MOD-sp4): 54.7 ml LA A4 area: 17.9 cm2 Time Measurements MV dec time: 0.24 sec Doppler Measurements & Calculations MV E max james: 56.6 cm/sec Lat Peak E' James: 3.3 cm/sec Med Peak E' James: 4.7 cm/sec MV A max james: 103.9 cm/sec E/E' lat: 17.2 E/E' med: 12.0 MV E/A: 0.55 MV V2 max: 99.5 cm/sec MV P1/2t max james: 61.0 cm/sec Ao V2 max: 101.8 cm/sec MV max P.0 mmHg MV P1/2t: 88.3 msec Ao max P.1 mmHg MV V2 mean: 50.2 cm/sec MV dec slope: 202.3 cm/sec2 MV mean P.2 mmHg MVA(P1/2t): 2.5 cm2 MV V2 VTI: 21.8 cm LV V1 max: 78.8 cm/sec PA V2 max: 89.6 cm/sec LV V1 max P.5 mmHg Interpretation Summary Normal LV size. Mild concentric left ventricular hypertrophy. The estimated ejection fraction is 45 %. Stage 1 diastolic dysfunction. Contrast injection was performed. Ordering Physician: Devyn Collazo Referring Physician: Dante Luevano Performed By: Chito Thapa RCS
[2020-10-16 10:17] LABS: AST(SGOT) 28 U/L (15-37); Alanine Aminotransfer ALT/SGPT 42 U/L (16-61); Albumin, Serum 3.8 g/dL (3.2-5.0); Alkaline Phosphatase 82 U/L (45-117); Anion Gap 6 (5-15); BUN 15 mg/dL (7-18); BUN/Creat Ratio 15.5 RATIO (10-20); Bilirubin, Direct < 0.05 mg/dL (0.00-0.30); Calcium,Total 9.4 mg/dL (8.5-10.1); Chloride 108 mmol/L (98-107); Cholesterol 161 mg/dL (200); Creatinine, Serum 0.96 mg/dL (0.70-1.30); EST Glomerular Filtration Rate 81 mL/min (>60); Est Glom Filt Rate - Afr Amer 99 mL/min (>60); Globulin 3.9 g/dL (2.2-4.2); Glucose 151 mg/dL (74-106); High Density Lipoprotein 30 mg/dL; Potassium 3.8 mmol/L (3.5-5.1); Protein, Total 7.7 g/dL (6.4-8.2); Sodium Level 140 mmol/L (136-145); Triglycerides 234 mg/dL; Very Low Density Lipoprotein 47 mg/dL (5-40)
--- NOTE | 2020-10-16 17:39 | STRESSREP ---
Stress Test Report Exercise myocardial perfusion stress test. 70-year-old man with a history of multivessel coronary artery disease status post angioplasty and stenting of the left anterior descending artery, right coronary artery, left circumflex artery. Stress protocol: Resting EKG demonstrates normal sinus rhythm with a rate of 79 bpm normal intervals are noted resting blood pressure is 120/70 mmHg. The patient exercised according to the regular Evan protocol for a total duration of 5 minutes and 12 seconds the maximum heart rate attained was 153 bpm which was 102% of maximum predicted heart rate the maximum workload was 11.7 metabolic equivalents. At rest there were no ST or T wave changes noted suggest ischemia at peak exercise upsloping ST changes only were noted with no meet the criteria for ischemia. No clinical angina was noted. The resting blood pressure was 120/70 mmHg with a peak blood pressure 182/70 mmHg rate-pressure product was 27,800. The test was terminated due to fatigue dyspnea and the target heart rate being achieved. Myocardial perfusion protocol. 14.1 mCi of technetium 99m sestamibi was injected at rest. The patient exercised for 5 minutes and 12 seconds and at peak exercise 44.6 mCi of technetium 99m sestamibi was injected stress images were obtained stress and rest images were reconstructed and compared in the short axis vertical long horizontal long axis. Gated images were also obtained Perfusion SPECT analysis: Review of the stress images demonstrate mildly dilated cardiac silhouette size. The anterior wall demonstrates a large defect extending from the mid anterior wall involving the anterior septum and apex. The lateral wall and inferior wall appeared to be well perfused. The resting images demonstrate a similar patent. The above is suggestive of a previous large anterior apical infarct involving the anterior septum as well. No significant ischemia is noted. Gated SPECT analysis: The gated ejection fraction is noted to suggest an ejection fraction of 35%. Conclusion: Ischemic cardiomyopathy. 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 Reduced ejection fraction.
== END ==
PROVIDERS: PCP Family Medicine; Referring Provider Internal Medicine Cardiovascular Disease; Visit Provider Internal Medicine Cardiovascular Disease
DX: I25.10 Atherosclerotic heart disease of native coronary artery without angina pectoris (principal); E78.00 Pure hypercholesterolemia, unspecified; Z95.5 Presence of coronary angioplasty implant and graft
CPT/HCPCS: 36415; 78452; 80048; 80061; 80076; 93017; 93306; A9500; Q9957; A4216; C8929

== ENCOUNTER → 2020-12-01 14:46 | Outpatient (CLI) | payer MEDICARE, SELFPAY ==
[2018-08-22 13:48] VITALS: BMI 33.4
[2020-10-06 12:29] VITALS: BMI 32.6
[2020-12-01 14:08] VITALS: BMI 33.5
--- NOTE | 2020-12-01 14:47 | CT_ITS ---
STUDY: LOW DOSE CT LUNG CANCER SCREENING REASON FOR EXAM: Male, 70 years old. Lung cancer screening -- 50 pack year history; current smoker; asymptomatic RADIATION DOSAGE (If Supplied By Facility): CTDIvol = ( 4.02 ) mGy, DLP = ( 155.52 ) mGycm TECHNIQUE: No contrast was administered. Low dose technique was utilized (average mAS-38 and kVp 120). 1.25 mm axial source images with a slice interval of 1.25-mm were reconstructed in lung windows. 2.5 mm axial source images with a slice interval of 2.5-mm were reconstructed in lung windows. 5.0 mm axial source images with a slice interval of 5.0-mm were reconstructed in soft tissue windows. Nodule measured using lung windows on PACS and/or independent workstation with automated measurement of minimum and maximum diameter. Nodule measurement reported as average diameter rounded to the nearest whole number. Growth is defined as an increase ins size of greater than 1.5 mm. COMPARISON: None. NODULES: 3.2 mm noncalcified nodule in the medial left lung apex as seen on axial image #52 and coronal image #167. Emphysema: Hyperinflation. Minimal scarring at the lung bases. Endobronchial lesion: None Aorta: Atherosclerotic plaque formation of the aortic arch. Coronary arteries: Coronary artery calcification. Heart: Unremarkable Pulmonary artery: Unremarkable Mediastinal nodes: Small mediastinal lymph nodes. Other chest and abdominal findings: Degenerative changes of the thoracic spine CT/Low Dose CT Lung Screening IMPRESSION: Lung-RADS category 2 - Continue annual screening with LDCT in 12 months. IMPORTANT NOTES FOR USE: ACR Lung-RADS Version 1.0 Assessment Categories Release Date: January 13, 2014 Category: Coded 0-4 bases on nodule(s) with highest degree of suspicion. Negative screen is defined as categories 1 and 2; a positive screen is defined as categories 3 and 4. Category 3 and 4A nodules that are unchanged on interval CT should be coded as category 2, and individuals returned to screening in 12 months. Category 4X: Category 3 or 4 nodules with additional imaging findings that increase the suspicion of lung cancer, such as spiculation, GGN that doubles in size in 1 year, enlarged lymph notes, etc. Category Modifiers: S (significant finding unrelated to lung cancer) and C (prior history of treated lung cancer) may be added to the 0-4 Lung-RADS Electronically Signed: Gio Cerna MD at 15:18 EDT , Service support ,
== END ==
PROVIDERS: PCP Family Medicine; Referring Provider Nurse Practitioner Family; Visit Provider Nurse Practitioner Family
DX: F17.209 Nicotine dependence, unspecified, with unspecified nicotine-induced disorders (principal); Z12.2 Encounter for screening for malignant neoplasm of respiratory organs
CPT/HCPCS: 71271

== ENCOUNTER 2021-11-24 10:43 | Outpatient (CLI) | payer MEDICARE, SELFPAY ==
[2018-08-22 13:48] VITALS: BMI 33.4
--- NOTE | 2021-11-24 10:55 | VDLE_ITS ---
Reason For Study: Calf swelling RIGHT LEFT CFV is compressible, spontaneous, phasic, GSV is normal. competent and demonstrates normal CFV is compressible, spontaneous, phasic, augmentation. competent, and demonstrates normal Procedure augmentation. This is a venous duplex using B-mode, color Acute deep vein thrombosis is noted in the flow and spectral Doppler. left FV mid-distal, PopV, T/P Trunk, PTV, Exam performed in department. PeroV, GastrocV, and Soleus V. Sent patient to ED per Dr. Luevano for treatment. A preliminary report was called and/or faxed to [facility]. VL/Venous Duplex US, Unilateral Interpretation Summary Acute deep vein thrombosis is noted in the left femoral vein. Acute deep vein t hrombosis is noted in the left popliteal vein. Acute deep vein thrombosis is noted in the left tibio- peroneal trunk. Acute deep vein thrombosis is noted in the left posterior tibial vein. Acute deep vei n thrombosis is noted in the left peroneal vein. Acute deep vein thrombosis is noted in the left david rocnemius vein. Acute deep vein thrombosis is noted in the left soleus vein. The left common femoral vein is patent, compressible, and competent. The left great saphenous vein appears patent and c ompressible segmentally. Ordering Physician: Dante Luevano Referring Physician: Dante Luevano Performed By: Jaycee Ramirez RVT
== END 2021-11-24 23:59 | disposition home or self-care (01) ==
LOC: CVS 10:44
PROVIDERS: PCP Family Medicine; Referring Provider Family Medicine; Visit Provider Family Medicine
DX: M79.662 Pain in left lower leg (principal); M79.89 Other specified soft tissue disorders
CPT/HCPCS: 93971

== ENCOUNTER 2021-11-24 12:03 | Emergency (ER) | payer MEDICARE, SELFPAY ==
[2018-08-22 13:48] VITALS: BMI 33.4
[2021-11-24 12:04] VITALS: BP 130/71; PULSE 86; RESP 15; TEMP 36; O2SAT 97; BMI 32.9
[2021-11-24 13:40] LABS: Absolute Lymphocyte Count 2.06 X10^3/uL (0.83-4.51); Absolute Neutrophil Count 6.6 X10^3/uL (2.0-7.7); Basophil# 0.05 X10^3/uL; Basophil% 0.5 % (0-1); Eosinophil# 0.41 X10^3/uL; Eosinophils% 4.2 % (0-5); Hematocrit 45.1 % (40-54); Hemoglobin 15.1 g/dL (13.0-16.5); Lymphocyte # 2.06 X10^3/ul (0.83-4.51); Mean Corp Hgb Conc 33.5 g/dL (32-36); Mean Corpuscular Hgb 31.3 pg (27.0-32.0); Mean Corpuscular Volume 93.4 fL (80-94); Mean Platelet Vol. 9.1 fl (6.2-12.0); Monocyte# 0.67 X10^3/uL; Monocyte% 6.8 % (0-10); NRBC Flagged by Analyzer 0 % (0-5); Neutrophil # 6.55 X10^3/uL (2.7-7.7); Neutrophil % 66.9 % (47-70); Platelet Count 212 K/mm3 (150-450); RBC Distribution Width CV 13.3 % (11.6-14.6); RBC Distribution Width SD 45.8 fl (35.1-43.9); Red Blood Count 4.83 M/mm3 (4.6-6.2); White Blood Count 9.8 K/mm3 (4.4-11.0)
[2021-11-24 13:52] LABS: Anion Gap 8 (5-15); BUN 21 mg/dL (7-18); BUN/Creat Ratio 21.6 RATIO (10-20); Calcium,Total 9.9 mg/dL (8.5-10.1); Chloride 104 mmol/L (98-107); Creatinine, Serum 0.97 mg/dL (0.70-1.30); EST Glomerular Filtration Rate 80 mL/min (>60); Est Glom Filt Rate - Afr Amer 97 mL/min (>60); Estimated Creatinine Clearance 73.32 ml/min; Glucose 130 mg/dL (74-106); Potassium 3.8 mmol/L (3.5-5.1); Sodium Level 139 mmol/L (136-145)
--- NOTE | 2021-11-24 14:08 | EDS_ITS ---
HPI History of Present Illness Chief Complaint: Lower Extremity Injury Informant: patient Narrative Narrative: Patient is evaluated after he had a positive outpatient DVT ultrasound. Patient had 1 week of left calf discomfort and swelling. His primary care doctor ordered him an outpatient DVT study which was positive for DVT noted in the left femoral vein mid?distal, popliteal vein, T/P trunk, PTV, peroneal vein, gastrocnemius vein and soleus vein. Denies any recent immobilization or surgeries. Denies any history of DVT or PE. States he does sit around a lot. Is currently on 81 mg aspirin as well as Plavix for history of coronary artery disease. [facility] Medical History (Updated 11/24/21 @ 14:[address] Philomena Duarte, DO) Abnormal stress echo Atherosclerosis of coronary artery of [place] heart without angina pectoris Essential (primary) hypertension Hypercholesterolemia Ischemic cardiomyopathy Non-STEMI (non-ST elevated myocardial infarction) (08/23/17) MEERA (obstructive sleep apnea) Tobacco abuse Home Medications aspirin 81 mg PO DAILY 08/23/17 [History Last Taken 09/07/18] flaxseed oil 1,000 mg PO DAILY 08/23/17 [History Last Taken 08/22/17 22:00] losartan 50 mg PO DAILY #60 tab 08/25/17 [Rx Last Taken 09/06/18] sxxbpwpj-waw-dcafi acid 0.4 mg-lycopene 300 mcg-lutein 250 mcg tablet 1 tab PO DAILY 01/28/19 [History Last Taken Unknown] cholecalciferol (vitamin D3) 125 mcg (5,000 unit) capsule 125 mcg PO DAILY 10/06/20 [History Last Taken Unknown] metformin 1,000 mg tablet 1,000 mg PO BID 10/06/20 [History Last Taken Unknown] turmeric root extract 500 mg capsule 600 mg PO DAILY 10/06/20 [History Last Taken Unknown] zinc 50 mg tablet 50 mg PO DAILY 10/06/20 [History Last Taken Unknown] Fruit Pectin Gel 1 tbsp PO DAILY 12/01/20 [History Last Taken Unknown] hydrochlorothiazide 25 mg tablet 25 mg PO DAILY tab 12/01/20 [History Last Taken Unknown] insulin glargine 100 unit/mL subcutaneous solution 22 unit SC QPM ml 12/01/20 [History Last Taken Unknown] metoprolol tartrate 25 mg tablet 12.5 mg PO BID tab 09/20/21 [History Last Taken Unknown] apixaban [Eliquis DVT-PE Treat 30D Start] 5 mg PO BID #74 tab 11/24/21 [Rx Last Taken Unknown] ezetimibe [Zetia] 10 mg PO DAILY 11/24/21 [History Last Taken Unknown] Allergy/AdvReac Type Severity Reaction Status Date / Time rosuvastatin [From Crestor] AdvReac Severe Myalgias Verified 11/24/21 12:05 atorvastatin [From Lipitor] AdvReac Diarrhea, Verified 11/24/21 12:05 vomiting, myalgias carvedilol [From Coreg] AdvReac unknown Verified 11/24/21 12:05 Family History Uncle Myocardial infarction Father Prostate cancer Other Pacemaker- mother Surgical History History of bilateral knee arthroplasty History of coronary artery stent placement (09/07/18) History of eye surgery (02/03/20) right foot surgery Social History Smoking Status: Current every day smoker tobacco type: cigarettes Tobacco: How many years used: 50 Electronic Cigarette Use: not used second hand exposure: Yes quit status: has quit before counseling given: provider counseling alcohol intake: never substance use type: does not use caffeine: No ROS ROS ED Constitutional Constitutional ED: Denies chills or fever(s) Eyes Eyes: Denies change in vision ENT ENT ED: Denies sore throat Cardiovascular Cardiovascular: Denies chest pain Respiratory/Chest Respiratory/Chest: Denies cough, dyspnea or dyspnea on exertion Gastrointestinal Gastrointestinal: Denies abdominal pain Musculoskeletal Musculoskeletal: Reports other Details: Left calf pain and swelling ; Denies arthralgias or myalgias Integumentary Denies rash Neurologic Neurologic: Denies headache(s), paresthesias or weakness EXAM Physical Exam Const Vital Signs: 11/24/21 12:04 Temperature 96.8 F L Temperature Source Temporal Pulse Rate 86 Respiratory Rate 15 Blood Pressure 130/71 H Blood Pressure Mean 90 Pulse Ox 97 Oxygen Delivery Method Room Air Positive well nourished and well developed General Appearance ED: well developed HEENT Reports moist mucous membranes Eyes PERRL and EOMs intact bilaterally General Eye ED: Negative for pale conjunctiva Neck supple Chest Wall inspection of chest normal Resp normal respiratory effort and clear to auscultation bilaterally Cardio regular rate, regular rhythm and no murmurs Rate: other Other Details: 2+ bilateral DP pulses Extremity Extremity Narrative: Nonpitting edema, warmth and mild erythema of the left lower leg especially in the calf General Extremety ED: Yes edema and tenderness General Extremity: edema Neuro oriented x3 Sensorium / Orientation: alert Motor Exam: Negative for general weakness Psych mental status grossly normal Skin no rashes or lesions noted and no wounds MDM MDM MDM Narrative Medical decision making narrative: Patient evaluated for positive outpatient DVT scan. He will be started on Eliquis and given first dose in the emergency room. He does not have any signs or symptoms consistent with a PE. 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 Collazo, who agrees that patient should stop the Plavix while on Eliquis but can continue taking 81 mg of aspirin. Patient counseled on the risk of bleeding including in the GI tract and with trauma when starting anticoagulation. Screening labs including a CBC, coags and BMP obtained which are all grossly normal. Patient given first dose of Eliquis in the ER. Given a coupon card for first month of Eliquis. Lab Data Labs: Laboratory Results - last 24 hr 11/24/21 11/24/21 11/24/21 13:30 13:30 13:30 WBC 9.8 RBC 4.83 Hgb 15.1 Hct 45.1 MCV 93.4 MCH 31.3 MCHC 33.5 RDW Std Deviation 45.8 H RDW Coeff of Hermes 13.3 Plt Count 212 MPV 9.1 Immature Gran % (Auto) 0.600 Neut % (Auto) 66.9 Lymph % (Auto) 21.0 Evans % (Auto) 6.8 Eos % (Auto) 4.2 Baso % (Auto) 0.5 Absolute Neuts (auto) 6.6 Absolute Lymphs (auto) 2.06 Nucleated RBC % 0 PT Cancelled INR Cancelled Sodium 139 Potassium 3.8 Chloride 104 Carbon Dioxide 27.0 Anion Gap 8 BUN 21 H Creatinine 0.97 Estim Creat Clear Calc 73.32 Est GFR (MDRD) Af Amer 97 Est GFR (MDRD) Non-Af 80 BUN/Creatinine Ratio 21.6 H Glucose 130 H Calcium 9.9 11/24/21 13:58 WBC RBC Hgb Hct MCV MCH MCHC RDW Std Deviation RDW Coeff of Hermes Plt Count MPV Immature Gran % (Auto) Neut % (Auto) Lymph % (Auto) Evans % (Auto) Eos % (Auto) Baso % (Auto) Absolute Neuts (auto) Absolute Lymphs (auto) Nucleated RBC % PT 12.4 INR 1.0 Sodium Potassium Chloride Carbon Dioxide Anion Gap BUN Creatinine Estim Creat Clear Calc Est GFR (MDRD) Af Amer Est GFR (MDRD) Non-Af BUN/Creatinine Ratio Glucose Calcium Discharge Plan Triage Chief Complaint: Lower Extremity Injury ED Provider: Philomena Duarte Dx/Rx/DC Orders Clinical Impression: Acute deep vein thrombosis (DVT) of left lower extremity Instructions: ED Deep Vein Thrombosis (DVT) Prescriptions: [place] DVT-PE Treat 30D Start 5 mg (74 tabs) tablets,dose pack 5 mg PO BID Qty: 74 RF: 0 Continued hydrochlorothiazide 25 mg tablet 25 mg PO DAILY RF: 0 Centrum Silver 0.4-300-250 mg-mcg-mcg tablet 1 tab PO DAILY RF: 0 insulin glargine 100 unit/mL solution 22 unit SC QPM RF: 0 metformin 1,000 mg tablet 1,000 mg PO BID RF: 0 zinc 50 mg tablet 50 mg PO DAILY RF: 0 cholecalciferol (vitamin D3) 125 mcg (5,000 unit) capsule 125 mcg PO DAILY RF: 0 turmeric root extract 500 mg capsule 600 mg PO DAILY RF: 0 Fruit Pectin Gel gel 1 tbsp PO DAILY RF: 0 metoprolol tartrate 25 mg tablet 12.5 mg PO BID RF: 0 aspirin 81 MG tablet,delayed release (DR/EC) 81 mg PO DAILY RF: 0 flaxseed oil 1,000 MG capsule 1,000 mg PO DAILY RF: 0 losartan 50 MG tablet 50 mg PO DAILY Qty: 60 RF: 0 ezetimibe [Zetia] 10 mg Tablet 10 mg PO DAILY RF: 0 Discontinued clopidogrel 75 MG tablet 75 mg PO DAILY Qty: 60 RF: 5 Primary Care Provider: Dante Luevano Referrals: Dante Luevano MD [Primary Care Provider] - Activity Restrictions/Additional Instructions: I spoke with your heart doctor. Continue taking 81 mg of aspirin but stop taking your Plavix. Disposition Disposition: Home, Self Care Discharge Date/Time: 11/24/21 14:28
[2021-11-24 14:18] LABS: Prothrombin Time (Protime)PT. 12.4 SECONDS (11.7-14.9)
[2021-11-24] MEDS: APIXABAN 5 MG TABLET 10 MG PO (14:23)
== END 2021-11-24 14:28 | disposition home or self-care (01) ==
PROVIDERS: Emergency Provider Emergency Medicine; PCP Family Medicine; Visit Provider Emergency Medicine
DX: I82.402 Acute embolism and thrombosis of unspecified deep veins of left lower extremity (principal); Z79.4 Long term (current) use of insulin; F17.210 Nicotine dependence, cigarettes, uncomplicated; I25.5 Ischemic cardiomyopathy; I10 Essential (primary) hypertension; I25.2 Old myocardial infarction; I25.10 Atherosclerotic heart disease of native coronary artery without angina pectoris; G47.33 Obstructive sleep apnea (adult) (pediatric); Z79.899 Other long term (current) drug therapy; Z79.82 Long term (current) use of aspirin; Z79.84 Long term (current) use of oral hypoglycemic drugs
CPT/HCPCS: 36415; 80048; 85025; 85610; 99283; A4216

== ENCOUNTER → 2022-04-05 | Outpatient (CLI) | payer MEDICARE, SELFPAY ==
[2018-08-22 13:48] VITALS: BMI 33.4
--- NOTE | 2022-04-05 14:02 | CT_ITS ---
STUDY: LOW DOSE CT LUNG CANCER SCREENING REASON FOR EXAM: Male, 72 years old. Lung cancer screening -- 50 pk yr hx;asymptomatic; current smoker RADIATION DOSAGE (If Supplied By Facility): CTDIvol = ( 3.18 ) mGy, DLP = ( 113.98 ) mGycm TECHNIQUE: No contrast was administered. Low dose technique was utilized (average mAS-38 and kVp 120). 1.25 mm axial source images with a slice interval of 1.25-mm were reconstructed in lung windows. 2.5 mm axial source images with a slice interval of 2.5-mm were reconstructed in lung windows. 5.0 mm axial source images with a slice interval of 5.0-mm were reconstructed in soft tissue windows. COMPARISON: Comparison is made with prior study of 12/01/2020. NODULES: Stable 3.2 mm noncalcified nodule as seen on axial image #46. Emphysema: Hyperinflation. Mild emphysematous changes. Mild scarring at the lung bases slightly more prominent on the left side. Endobronchial lesion: None Aorta: Atherosclerotic plaque formation of the aortic arch. CORONARY ARTERIES: Coronary artery calcification is seen. Heart: Unremarkable Pulmonary artery: Unremarkable Mediastinal nodes: Small mediastinal lymph nodes. Other chest and abdominal findings: CT/Low Dose CT Lung Screening IMPRESSION: Lung-RADS category 2 - Continue annual screening with LDCT in 12 months. IMPORTANT NOTES FOR USE: ACR Lung-RADS Version 1.1 Assessment Categories Release Date: 2018 Category: Coded 0-4 bases on nodule(s) with highest degree of suspicion. Negative screen is defined as categories 1 and 2; a positive screen is defined as categories 3 and 4. Category 3 and 4A nodules that are unchanged on interval CT should be coded as category 2, and individuals returned to screening in 12 months. Category 4X: Category 3 or 4 nodules with additional imaging findings that increase the suspicion of lung cancer, such as spiculation, GGN that doubles in size in 1 year, enlarged lymph notes, etc. Category Modifiers: S (significant finding unrelated to lung cancer) Electronically Signed: Gio Cerna MD at 14:44 EDT ,
== END | disposition home or self-care (01) ==
LOC: CT 14:01
PROVIDERS: PCP Family Medicine; Referring Provider Nurse Practitioner Family; Visit Provider Nurse Practitioner Family
DX: Z87.891 Personal history of nicotine dependence (principal); Z12.2 Encounter for screening for malignant neoplasm of respiratory organs
CPT/HCPCS: 71271

== ENCOUNTER 2022-07-19 08:06 | Day surgery (SDC) | payer OTHER, SELFPAY ==
[2018-08-22 13:48] VITALS: BMI 33.4
[2022-07-19] VITALS (7 sets, daily range): BP systolic 96–129; BP diastolic 59–82; PULSE 72–83; RESP 16–18; TEMP 36.3–36.5; O2SAT 94–98; BMI 32.0
--- NOTE | 2022-07-19 08:28 | HP.PCM_ITS ---
History and Physical Date of Admission: 07/19/22 Visit Reasons:?COLONOSCOPY Chief Complaint: Colonoscopy Java Jsf Developer Required: No Is patient in pain?: No Allergies rosuvastatin [From Crestor] Adverse Reaction (Severe, Verified 07/05/22 13:23) Myalgiasatorvastatin [From Lipitor] Adverse Reaction (Verified 07/05/22 13:23) Diarrhea, vomiting, myalgiascarvedilol [From Coreg] Adverse Reaction (Verified 07/05/22 13:23) unknown Medications aspirin 81 mg tablet,delayed release 81 mg PO DAILY heart health 08/23/17 [History Confirmed 07/05/22] flaxseed oil 1,000 mg capsule 1,000 mg PO DAILY supplement 08/23/17 [History Confirmed 07/05/22] mhppgfpx-isr-jeply acid 0.4 mg-lycopene 300 mcg-lutein 250 mcg tablet (Centrum Silver) 1 tab PO DAILY 01/28/19 [History Confirmed 07/05/22] cholecalciferol (vitamin D3) 125 mcg (5,000 unit) capsule 125 mcg PO DAILY 10/06/20 [History Confirmed 07/05/22] metformin 1,000 mg tablet 1,000 mg PO BID 10/06/20 [History Confirmed 07/05/22] turmeric root extract 500 mg capsule 600 mg PO DAILY 10/06/20 [History Confirmed 07/05/22] zinc 50 mg tablet 50 mg PO DAILY 10/06/20 [History Confirmed 07/05/22] insulin glargine 100 unit/mL subcutaneous solution 22 unit subcut QPM 12/01/20 [History Confirmed 07/05/22] metoprolol tartrate 25 mg tablet 12.5 mg PO BID 06/07/21 [History Confirmed 07/05/22] ezetimibe 10 mg tablet (Zetia) 10 mg PO DAILY 11/24/21 [History Confirmed 07/05/22] clopidogrel 75 mg tablet (Plavix) 75 mg PO DAILY 07/05/22 [History Confirmed 07/05/22] losartan 50 mg tablet 50 mg PO BID 07/05/22 [History] PFSH Medical History? Atherosclerosis of coronary artery of [place] heart without angina pectoris Encounter for screening for malignant neoplasm of lung in current smoker with 30 pack year history or greater Essential (primary) hypertension Hypercholesterolemia Ischemic cardiomyopathy Non-STEMI (non-ST elevated myocardial infarction) (08/23/17) Old anteroseptal myocardial infarction MEERA (obstructive sleep apnea) Tobacco abuse Surgical History? History of bilateral knee arthroplasty History of coronary artery stent placement (09/07/18) History of eye surgery (02/03/20) right foot surgery Family History? Uncle Myocardial infarctionFather Prostate cancerOther Pacemaker- mother Social History? Smoking Status:? Current every day smoker tobacco type: cigarettes Tobacco: How many years used:? 50 Electronic Cigarette Use:? not used second hand exposure:? Yes quit status:? has quit before counseling given:? provider counseling alcohol intake:? never substance use type:? does not use caffeine:? No HPI HPI HPI: 72-year-old gentleman who is referred by the [facility] system for screening colonoscopy.? A written copy of my surgical consult and recommendations will return to them.? He has a previous history of a colonoscopy September 04, 2018.? He has been a 30-year smoker and had a lung CT on April 05, 2022 which was felt to be stable.? He has a history of obstructive cardiovascular disease and has had coronary stents placed.? In addition to his other medications he is on c lopidogrel and low-dose aspirin and insulin. He recalls that his previous colonoscopy he had some colon polyps.? He has never had a malignancy.? He denies chest pain.? He states that he had a DVT in November due to less activity.? He was on apixaban for a period of time but now that issue is resolved.? He is trying to be more active.? He was in the [place] War. ROS General General: No weight change, appetite, fatigue, colon cancer, breast cancer or weakness HEENT HEENT: Yes eye surgery; No difficulty swallowing, eye injury, swollen glands or hoarseness Endo Endocrine: Yes diabetes mellitus; No thyroid disease, thyroid cancer, Hair loss, heat intolerance or cold intolerance Skin Skin: No rash or changing moles Breast Breast: No left breast lump, right breast lump, nipple discharge, breast pain, abnormal mammogram, abnormal US or breast enlargement [facility] Musculoskeletal: Yes arthritis and gout; No back problems, rheumatoid arthritis or joint pain Cardio Cardiovascular: Yes heart disease, high blood pressure, heart attack and heart stent; No murmur, pacemaker, atrial fibrillation, palpitations, shortness of breat with exertion or chest pain Psych Psychiatric: No depression, anxiety or hearing voices Resp Respiratory: Yes shortness of breath, Yes sleep apnea, No cough, No COPD, No asthma, Yes emphysema and No wheezing Gastro Gastrointestinal: No abdominal pain, No nausea or vomiting, No diarrhea, No constipation, No blood in stool, No acid reflux, Yes hemorrhoids, No ulcers, No gallbladder problem and No black,tarry stools [place] Hematologic: Yes blood thinners, No blood disorders, No bleeding, No anemia and Yes blood clots Neuro Neurologic: No system reviewed and no additional complaints, except as documented, No as per HPI, No abnormal gait, No abnormal hearing, No abnormal movements, No abnormal speech, No behavioral changes, No burning sensations, No confusion, No convulsions, No disequilibrium, No dizziness, No localized weakness, No frequent falls, No headache(s), No lack of coordination, No loss of vision, No memory loss, No numbness, No other visual disturbances, No radicular pain, No restless legs, No sensory deficit, No syncope, No tingling, No tremor(s), No weakness and No other (Stroke/TIA) Exam Const General: cooperative and healthy appearing [facility] Head: normal to inspection Eyes General: appearance normal, both eyes and all related structures Neck Neck: normal visual inspection Chest Other: Increased anterior posterior diameter Resp Other: Diminished respiratory excursion, coarse breath sounds bilaterally Cardio Rate: regular rate Rhythm: regular rhythm GI Other: Soft, overweight, nontender [facility] Cervical Spine: normal cervical lordosis Skin General: no rashes or lesions noted Neuro General: patient alert, patient awake and patient oriented x3 Psych Appearance: grossly normal Assessment and Plan Assessment and Plan (1) Screening for intestinal cancer: ?Status:?Acute ?Plan: I recommended the patient a colonoscopy with possible biopsy or polypectomy as indicated.? He is at slightly increased risk because of his coronary artery disease and ongoing tobacco use.? I offered him recommendations to cease his tobacco but he states he is long-term addicted.? We will utilize monitored anesthesia care.? Because of his recent coronary stents we will continue the clopidogrel and aspirin.? He has had an opportunity ask and questions answered.? We will schedule procedure at his discretion. I appreciate the opportunity of assisting with the surgical care. Copy: [facility] Sabino Almonte M.D., F.Yeni.C.S. I have examined the patient and the H&P has been reviewed. There are no clinical changes since date of exam. Sabino Almonte M.D., F.A.C.S.
[2022-07-19] MEDS: Lactated Ringers 1,000 ML 15 ML IV (08:54)
[2022-07-19 09:00] LABS: Bedside Glucose 156 mg/dL (74-106)
--- NOTE | 2022-07-19 09:15 | COLBX_PTH ---
PATIENT: RIGOBERTO ALBERTS LOC: EN U#:[id number] AGE/SX: 72/M ROOM: RE07/19/[address]: Dr. Sabino Almonte MD : 1950 BED: DIS: 07/19/2022 SPEC #: [id number] RECD: 07/19/22 11:31 STATUS: TROY PEARCE #: [id number] DOLORES: 07/19/22 09:[address]: Sabino Almonte DEPT: SURGICAL PATHOLOGY RECD BY: Kera King ENTERED: 07/19/22 12:48 SP TYPE: COLON BX OTHR DR: Dr. Dante Luevano MD Tissues: Cecum, NOS Procedures: Surgery Specimen Level IV HEADER OPERATION: Colonoscopy (MAC), polypectomy PRE-OP DIAGNOSIS: Screening for intestinal cancer TISSUE SUBMITTED: Cecum polyp MICROSCOPIC DIAGNOSIS Cecal polyp, biopsy: Fragments of tubulovillous adenoma. AM:jun 07/20/2022 MICROSCOPIC DESCRIPTION Slides are reviewed. GROSS DESCRIPTION Received in fixative is one container labeled with the patient's name and designated cecal polyp. The specimen consists of multiple irregular fragments of light [place]go soft tissue that in aggregate measure 2.5 x 1.3 x 0.2 cm. The specimen is totally submitted in one cassette. / AM:jun 07/19/2022 TC:3 CPT: 58566
[2022-07-19] MEDS: 0.9% Saline Lock 10 ML Syringe IV (09:47)
--- NOTE | 2022-07-19 09:59 | OP.COLON_ITS ---
Patient Name: Navin Estrella Procedure Date: 07/19/2022 9:15 AM Date of : 1950 Age: 72 Procedure: Colonoscopy Indications: High risk colon cancer surveillance: Personal history of colonic polyps Providers: Sabino Almonte MD Medicines: See the Anesthesia note for documentation of the administered medications Patient Profile: Last Colonoscopy: August 2018. Complications: No immediate complications. Procedure: Pre-Anesthesia Assessment: - Prior to the procedure, a History and Physical was performed, and patient medications and allergies were reviewed. The patient's tolerance of previous anesthesia was also reviewed. The risks and benefits of the procedure and the sedation options and risks were discussed with the patient. All questions were answered, and informed consent was obtained. Prior Anticoagulants: The patient has taken Plavix (clopidogrel), last dose was day of procedure. ASA Grade Assessment: III - A patient with severe systemic disease. After reviewing the risks and benefits, the patient was deemed in satisfactory condition to undergo the procedure. After I obtained informed consent, the scope was passed under direct vision. Throughout the procedure, the patient's blood pressure, pulse, and oxygen saturations were monitored continuously. The colonoscope was introduced through the anus and advanced to the cecum, identified by appendiceal orifice and ileocecal valve. The colonoscopy was somewhat difficult due to the patient's body habitus. The patient tolerated the procedure well. The quality of the bowel preparation was fair. The ileocecal valve and the appendiceal orifice were photographed. Scope In: 9:24:09 AM Scope Withdrawal Time 0 hours 4 minutes 44 seconds Scope Out: 9:51:41 AM Total Procedure Duration Time 0 hours 27 minutes 32 seconds Findings: Hemorrhoids were found on perianal exam. A 9 mm polyp was found in the cecum. The polyp was sessile. The polyp was removed with a saline injection-lift technique using a hot snare. Resection and retrieval were complete. Multiple diverticula were found in the sigmoid colon and descending colon. Impression: - Preparation of the colon was fair. - Hemorrhoids found on perianal exam. - One 9 mm polyp in the cecum, removed using injection-lift and a hot snare. Resected and retrieved. - Diverticulosis in the sigmoid colon and in the descending colon. Recommendation: - Discharge patient to home. - Resume previous diet. - Continue present medications. - Repeat colonoscopy in 5 years for surveillance based on pathology results. - Telephone my office for pathology results in 1 week. Liquid and particulate stool noted throughout the colon particularly the transverse colon and descending colon. Due to the solid nature could not be aspirated. Incomplete visualization of these portions of the colon noted Procedure Code(s): --- Professional --- 06539, Colonoscopy, flexible; with removal of tumor(s), polyp(s), or other lesion(s) by snare technique 02224, Colonoscopy, flexible; with directed submucosal injection(s), any substance Diagnosis Code(s): --- Professional --- Z86.010, Personal history of colonic polyps K64.9, Unspecified hemorrhoids D12.0, Benign neoplasm of cecum K57.30, Diverticulosis of large intestine without perforation or abscess without bleeding CPT copyright 2017 [employer]. All rights reserved. The codes documented in this report are preliminary and upon junction maker review may be revised to meet current compliance requirements. Sabino Almonte MD 07/19/2022 9:59:20 AM This report has been signed electronically. Number of Addenda: 0 Note Initiated On: 07/19/2022 9:15 AM
--- NOTE | 2022-07-19 10:00 | OP.CCLET_ITS ---
07/19/2022 See above [facility] Re : Colonoscopy procedure for Navin Estrella Dear [facility] This procedure was performed on Tuesday, July 19, 2022. My impressions and recommendations are as follows: Impressions : - Preparation of the colon was fair. - Hemorrhoids found on perianal exam. - One 9 mm polyp in the cecum, removed using injection-lift and a hot snare. Resected and retrieved. - Diverticulosis in the sigmoid colon and in the descending colon. Recommendations : - Discharge patient to home. - Resume previous diet. - Continue present medications. - Repeat colonoscopy in 5 years for surveillance based on pathology results. - Telephone my office for pathology results in 1 week. Liquid and particulate stool noted throughout the colon particularly the transverse colon and descending colon. Due to the solid nature could not be aspirated. Incomplete visualization of these portions of the colon noted My findings are described in the full procedure note, which is enclosed. If I can be of further assistance, please feel free to contact me at Doctor phone number(s): Work: . Sincerely, Sabino Almonte MD 07/19/2022 9:59:20 AM This report has been signed electronically.
== END 2022-07-19 10:44 | disposition home or self-care (01) ==
LOC: EN 08:14 → AC 08:15
PROVIDERS: PCP Family Medicine; Referring Provider Family Medicine; Visit Provider Surgery
PROC: 0DJD8ZZ Inspection of Lower Intestinal Tract, Via Natural or Artificial Opening Endoscopic (ICD-10-PCS; CPT 45378; principal; 2022-07-19 09:10)
DX: Z12.11 Encounter for screening for malignant neoplasm of colon (principal); Z79.4 Long term (current) use of insulin; D12.0 Benign neoplasm of cecum; I25.10 Atherosclerotic heart disease of native coronary artery without angina pectoris; F17.210 Nicotine dependence, cigarettes, uncomplicated; K57.30 Diverticulosis of large intestine without perforation or abscess without bleeding; K64.9 Unspecified hemorrhoids; I25.2 Old myocardial infarction; G47.33 Obstructive sleep apnea (adult) (pediatric); Z86.718 Personal history of other venous thrombosis and embolism; Z95.5 Presence of coronary angioplasty implant and graft; Z79.82 Long term (current) use of aspirin; Z79.84 Long term (current) use of oral hypoglycemic drugs; Z79.899 Other long term (current) drug therapy; Z79.02 Long term (current) use of antithrombotics/antiplatelets; Z86.010 Personal history of colon polyps
CPT/HCPCS: 45385; 45381; 82962; 88305; J7120; A4216; J2405

== ENCOUNTER → 2022-08-01 | Outpatient (CLI) | payer MEDICARE, SELFPAY ==
[2018-08-22 13:48] VITALS: BMI 33.4
--- NOTE | 2022-08-01 11:15 | RAD_ITS ---
STUDY: X-RAY - LEFT CLAVICLE REASON FOR EXAM: Male, 72 years old. Suspected cyst. TECHNIQUE: 2 view(s) of the clavicle. COMPARISON: Chest x-ray dated August 23, 2017. FINDINGS: Osteopenia. Stable irregularity and thickening of the body of the left clavicle compatible with remote injury. Mild arthrosis of the AC joint, unchanged. Mild arthrosis of the glenohumeral joint with sclerosis and cystic changes of the humeral head. Normal visualized pulmonary apex. RAD/Clavicle IMPRESSION: Osteopenia with stable thickening of the shaft of the left clavicle compatible with remote injury. Osteoarthritic changes. No acute finding. No cyst seen. Electronically Signed: Samson Riddle, at 11:30 EST ,
== END | disposition home or self-care (01) ==
PROVIDERS: PCP Family Medicine; Referring Provider Family Medicine; Visit Provider Family Medicine
DX: M24.812 Other specific joint derangements of left shoulder, not elsewhere classified (principal)
CPT/HCPCS: 73000

== ENCOUNTER → 2023-06-20 | Outpatient (CLI) | payer MEDICARE, SELFPAY ==
[2018-08-22 13:48] VITALS: BMI 33.4
--- NOTE | 2023-06-20 14:35 | CT_ITS ---
STUDY: LOW DOSE CT LUNG CANCER SCREENING REASON FOR EXAM: Male, 73 years old. Lung cancer screening -- and gt;20 pk yr hx;current smoker; asymptomatic RADIATION DOSAGE (If Supplied By Facility): CTDIvol = ( 4.02 ) mGy, DLP = ( 156.52 ) mGycm TECHNIQUE: No contrast was administered. Low dose technique was utilized (average mAS-38 and kVp 120). 1.25 mm axial source images with a slice interval of 1.25-mm were reconstructed in lung windows. 2.5 mm axial source images with a slice interval of 2.5-mm were reconstructed in lung windows. 5.0 mm axial source images with a slice interval of 5.0-mm were reconstructed in soft tissue windows. COMPARISON: Comparison is made with prior study dated April 05, 2022. NODULES: Stable 3.2 mm noncalcified nodule left apex as seen on axial image #47. Emphysema: Hyperinflation. Mild emphysematous changes. Stable linear scarring at the lung bases. Endobronchial lesion: None Aorta: Mild atherosclerotic plaque formation of the aortic arch. CORONARY ARTERIES: Coronary artery calcification is seen. Heart: Unremarkable Pulmonary artery: Unremarkable Mediastinal nodes: Small mediastinal lymph nodes. Other chest and abdominal findings: CT/Low Dose CT Lung Screening IMPRESSION: Lung-RADS category 2 - Continue annual screening with LDCT in 12 months. IMPORTANT NOTES FOR USE: ACR Lung-RADS Version 1.1 Assessment Categories Release Date: 2018 Category: Coded 0-4 bases on nodule(s) with highest degree of suspicion. Negative screen is defined as categories 1 and 2; a positive screen is defined as categories 3 and 4. Category 3 and 4A nodules that are unchanged on interval CT should be coded as category 2, and individuals returned to screening in 12 months. Category 4X: Category 3 or 4 nodules with additional imaging findings that increase the suspicion of lung cancer, such as spiculation, GGN that doubles in size in 1 year, enlarged lymph notes, etc. Category Modifiers: S (significant finding unrelated to lung cancer) Electronically Signed: Gio Cerna MD at 15:10 EDT ,
== END | disposition home or self-care (01) ==
LOC: CT 14:33
PROVIDERS: PCP Family Medicine; Referring Provider Nurse Practitioner Family; Visit Provider Nurse Practitioner Family
DX: Z87.891 Personal history of nicotine dependence (principal)
CPT/HCPCS: 71271

== ENCOUNTER → 2024-11-21 | Outpatient (CLI) | payer MEDICARE, SELFPAY ==
[2018-08-22 13:48] VITALS: BMI 33.4
--- NOTE | 2024-11-21 14:56 | RAD_ITS ---
PROCEDURE: FEMUR MIN 2 VIEWS REASON FOR EXAM: Pain TECHNIQUE: 5 view(s) of the left femur. COMPARISON: None. FINDINGS: No fracture. No suspicious bone lesion. Status post knee arthroplasty. Normal alignment at the hip and knee. Soft tissues are unremarkable. RAD/Femur Min 2 Views IMPRESSION: No acute fracture. Reading Location: PAT
== END | disposition home or self-care (01) ==
LOC: MTRAD 14:53
PROVIDERS: PCP Family Medicine; Referring Provider Family Medicine; Visit Provider Family Medicine
DX: M79.605 Pain in left leg (principal)
CPT/HCPCS: 73552

== ENCOUNTER → 2025-01-02 | Outpatient (CLI) | payer MEDICARE, SELFPAY ==
[2018-08-22 13:48] VITALS: BMI 33.4
--- NOTE | 2025-01-02 12:22 | EKG12_ITS ---
Test Reason : PRE OP Blood Pressure : */* mmHG Vent. Rate : 85 BPM Atrial Rate : 85 BPM P-R Int : 182 ms QRS Dur : 86 ms QT Int : 384 ms P-R-T Axes : 67 -48 65 degrees QTcB Int : 456 ms Sinus rhythm with occasional Premature ventricular complexes Left anterior fascicular block Minimal voltage criteria for LVH, may be normal variant Cannot rule out Anteroseptal infarct , age undetermined Abnormal ECG Confirmed by Aman Ortiz ([id number]), dictionary editor SHRUTHI LADD ([id number]) on 01/03/2025 7:03:29 AM Referred By: Estefania Rizzo Confirmed By: Aman Ortiz
--- NOTE | 2025-01-02 12:33 | RAD_ITS ---
PROCEDURE: CHEST PA AND LATERAL 01/02/2025 REASON FOR EXAM: PRE OP WASC TECHNIQUE: Frontal and lateral views of the chest. COMPARISON: None FINDINGS: Hardware: None Heart: The heart size is normal. Mediastinum: The mediastinal contour is unremarkable. Lungs: The lungs are clear. Bones: Degenerative changes are identified within the thoracic spine. RAD/Chest PA and Lateral IMPRESSION: NO ACUTE FINDINGS. Reading Location: PAT
[2025-01-02 13:56] LABS: Hemoglobin A1c 8.1 % (<=5.6)
[2025-01-02 14:35] LABS: Anion Gap 12 (5-15); BUN 18 mg/dL (4-19); BUN/Creat Ratio 23.5 RATIO (10-20); Calcium,Total 9.7 mg/dL (7.6-11.0); Carbon Dioxide 23.1 mmol/L (21.0-32.0); Chloride 104 mmol/L (98-108); Creatinine, Serum 0.78 mg/dL (0.70-1.20); EST Glomerular Filtration Rate 93 (>60); Glucose 144 mg/dL (70-99); Potassium 3.9 mmol/L (3.3-5.1); Sodium Level 139 mmol/L (133-145)
[2025-01-03 09:35] LABS: Hematocrit 44.4 % (40-54); Hemoglobin 15.1 g/dL (13.0-16.5); Mean Corpuscular Hgb 31.3 pg (27.0-32.0); Mean Corpuscular Volume 92.1 fL (80-94); Mean Platelet Vol. 9.7 fl (6.2-12.0); Platelet Count 254 K/mm3 (150-450); RBC Distribution Width CV 13.2 % (11.6-14.6); RBC Distribution Width SD 45.1 fl (35.1-43.9); Red Blood Count 4.82 M/mm3 (4.6-6.2)
== END | disposition home or self-care (01) ==
LOC: PSN 12:20
PROVIDERS: PCP Family Medicine; Referring Provider Physician Assistant; Visit Provider Physician Assistant
DX: Z01.818 Encounter for other preprocedural examination (principal); E11.9 Type 2 diabetes mellitus without complications; Z01.810 Encounter for preprocedural cardiovascular examination; Z01.811 Encounter for preprocedural respiratory examination
CPT/HCPCS: 36415; 71046; 80048; 83036; 85027; 93005

== ENCOUNTER → 2025-03-03 | Outpatient (CLI) | payer MEDICARE, SELFPAY ==
[2018-08-22 13:48] VITALS: BMI 33.4
--- NOTE | 2025-03-03 06:04 | ECHOCS_ITS ---
Reason For Study Reason For Study: CAD/ASHD Procedure This was a 2D Doppler, Color Flow transthoracic echocardiogram. The study was technically difficult. Contrast injection was performed. Exam performed in department. Left Ventricle Normal LV size. The left ventricular ejection fraction is 45 %. Stage 1 diastolic dysfunction. [place] : Akinetic. Mid- anteroseptal : Akinetic. Mid-Lateral : Normal. Lateral [place] : Normal. Lateral- Basal: Normal. Right Ventricle Normal RV size. Normal systolic function. Atria Normal left atrium. Normal right atrium. Mitral Valve There is moderate mitral annular calcification. Tricuspid Valve The tricuspid valve is not well visualized. Aortic Valve Trisinus/trileaflet aortic valve. Pericardium/Pleural No pericardial effusion. Medication 22 gauge I.V. with prn adaptor inserted into right arm. Diluted definity 2ml given slow IV push to enhance endocardial definition. MMode/2D Measurements & Calculations LVIDd: 5.7 cm IVSd: 1.1 cm Ao root diam: 3.6 cm LVIDs: 4.5 cm LVPWd: 1.0 cm RVDd: 3.6 cm FS: 20.7 % LAV(MOD-bp): 56.0 ml LVAd ap4: 51.3 cm2 SV(MOD-sp4): 101.3 ml LAV(MOD-bp) Indexed: 25.5 ml/m2 LVLd ap4: 9.7 cm SI(MOD-sp4): 46.1 ml/m2 LAV(MOD-sp2): 56.9 ml EDV(MOD-sp4): 223.7 ml LAV(MOD-sp4): 49.0 ml EDV(sp4-el): 231.8 ml LVAs ap4: 35.0 cm2 LVLs ap4: 8.4 cm ESV(MOD-sp4): 122.5 ml ESV(sp4-el): 123.4 ml EF(MOD-sp4): 45.3 % EF(sp4-el): 46.7 % SV(sp4-el): 108.4 ml LA dimension(2D): 4.1 cm LA A4 area: 16.8 cm2 RA A4 area: 16.8 cm2 TAPSE: 2.2 cm Time Measurements MV dec time: 0.23 sec Doppler Measurements & Calculations MV E max james: 69.8 cm/sec Lat Peak E' James: 6.8 cm/sec Med Peak E' James: 7.7 cm/sec MV A max james: 102.3 cm/sec E/E' lat: 10.3 E/E' med: 9.0 MV E/A: 0.68 MV V2 max: 118.6 cm/sec MV P1/2t max james: 88.4 cm/sec Ao V2 max: 132.4 cm/sec MV max P.6 mmHg MV P1/2t: 87.1 msec Ao max P.0 mmHg MV V2 mean: 70.8 cm/sec Ao V2 mean: 97.6 cm/sec MV mean P.4 mmHg MV dec slope: 297.5 cm/sec2 Ao mean P.3 mmHg MV V2 VTI: 32.7 cm MVA(P1/2t): 2.5 cm2 Ao V2 VTI: 30.4 cm AV (velocity ratio): 0.65 LV V1 max: 83.5 cm/sec PA V2 max: 91.4 cm/sec LV V1 max P.8 mmHg LV V1 mean P.8 mmHg LV V1 mean: 63.4 cm/sec LV V1 VTI: 19.9 cm ECHO/Echo Complete W/ Contrast Interpretation Summary The left ventricular ejection fraction is 45 %. Normal LV size. [place] : Akinetic. Mid-anteroseptal : Akinetic. Stage 1 diastolic dysfunction. Compared to previous study, the left ventricular systolic function is the same. . Ordering Physician: Devyn Collazo Referring Physician: Devyn Collazo Performed By: Chito Thapa RCS
--- OUTSIDE RECORDS SUMMARY | 2025-03-03 06:05 | XMS RPT_ITS | CCD ---
Author Organization [facility] CliniSyil Care Team Providers Care Home School Liaison Officer Name Role Phone Dr. Dante Luevano Primary Care Provider Saqib GRAIN BROKER AND MARKET OPERATOR, GRAIN BROKER AND MARKET OPERATOR-C Araceli Attending Provider Saqib GRAIN BROKER AND MARKET OPERATOR, GRAIN BROKER AND MARKET OPERATOR-C Araceli Referring Provider [phone] Dr. Dante Luevano Referring Provider Cebuandrew, Dr. Sabino Rodriguez Attending Provider Dr. Sabino Almonte Other Provider Dr. Dante Luevano Primary Care Provider Dr. Dante Luevano Referring Provider Ceso, Dr. Sabino Rodriguez Attending Provider CebuDr. Sabino morales Other Provider Dr. Richard Cardona DO Primary Care Provider Dr. Richard Cardona DO Attending Provider Dr. Richard Cardona DO Referring Provider Dr. Devyn Collazo MD Attending Provider Estefania Sanders Attending Provider Estefania Sanders Referring Provider Dr. Aman Ortiz MD Attending Provider Estefania Sanders Referring Provider [phone] Attending Unavailable BRADY TOLEDO DR Primary Care Unavailable BRADY TOLEDO DR Admitting Unavailable Estefania Sanders Attending Unavailable Estefania Sanders Referring Unavailable Richard Cardona Primary Care Unavailable Richard Cardona Primary Care Unavailable Richard Cardona Attending Unavailable Richard Cardona Referring Unavailable Devyn Collazo Attending Unavailable Devyn Collazo Referring Unavailable Richard Cardona Primary Care Unavailable Devyn Collazo Attending Unavailable Richard Cardona Primary Care Unavailable Richard Cardona Referring Unavailable Richard Cardona Primary Care Unavailable Estefania Sanders Referring Unavailable Aman Ortiz Attending Unavailable Allergies Allergy Classification Reported Allergen(s) Allergy Type Date of Onset Reaction(s) Facility (4 sources) atorvastatin Drug Allergy 2 Diarrhea, vomiting, myalgias [facility] (4 sources) carvedilol Drug Allergy 2 unknown [facility] (4 sources) rosuvastatin Drug Allergy 2 Myalgias [facility] (1 source) atorvastatin Drug Allergy 5 [facility] Repository (1 source) carvedilol Drug Allergy 5 [facility] Repository (1 source) rosuvastatin Drug Allergy 5 [facility] Repository Medications Current Medications Medication Drug Class(es) Dates Sig (Normalized) Sig (Original) aspirin 81 mg delayed release oral tablet (4 sources) Platelet Aggregation Inhibitor, Nonsteroidal Anti-inflammatory Drug Start: 08-23-2017 take 1 tablet by mouth once daily Aspirin 81 MG tablet,delayed release (DR/EC) Active 81 mg PO DAILY August 23, 2017 1:00am cholecalciferol 0.125 mg oral capsule (12 sources) Vitamin D Start: 10-06-2020 take 1 capsule by mouth once daily Cholecalciferol (Vitamin D3) 125 mcg (5,000 unit) capsule Active 125 ug PO DAILY October 06, 2020 1:00am Start: 01-28-2019 End: 08-22-2019 take 1 capsule by mouth once daily Cholecalciferol (Vitamin D3) 5,000 unit capsule Discontinued 5000 U PO DAILY January 28, 2019 12:00am August 22, 2019 11:44am Start: 08-23-2017 End: 01-28-2019 take 1 capsule by mouth once daily Cholecalciferol (Vitamin D3) 2,000 UNIT capsule Discontinued 2000 U PO DAILY August 23, 2017 1:00am January 28, 2019 11:03am ezetimibe 10 mg oral tablet (4 sources) Dietary Cholesterol Absorption Inhibitor Start: 11-24-2021 take 1 tablet by mouth once daily Ezetimibe (Zetia) 10 mg Tablet Active 10 mg PO DAILY November 24, 2021 1:00am Insulin Glargine 100 unit/mL solution (3 sources) Start: 12-13-2024 Insulin Glargi ne 100 unit/mL solution Active 20 U SC EVERY EVENING December 13, 2024 8:41am Start: 10-13-2023 End: 12-13-2024 Insulin Glargine 100 unit/mL solution Discontinued 10 U SC EVERY EVENING October 13, 2023 11:36am December 13, 2024 8:43am Start: 10-13-2023 Insulin Glargi ne 100 unit/mL solution Active 10 U SC EVERY EVENING October 13, 2023 11:36am latanoprost 0.05 mg/ml ophthalmic solution (2 sources) Prostaglandin Analog Start: 10-13-[address] 0.005 % drops Active NMA OPHTHALMIC October 13, 2023 1:00am linseed oil 1000 mg oral capsule (4 sources) Start: 08-23-2017 take 1 capsule by mouth once daily Flaxseed Oil 1,000 MG capsule Active 1000 mg PO DAILY August 23, 2017 1:00am losartan potassium 100 mg oral tablet (10 sources) Angiotensin 2 Receptor Ronen Start: 10-13-2023 take 1 tablet by mouth once daily Losartan 100 mg tablet Active 100 mg PO DAILY October 13, 2023 1:00am Start: 07-05-2022 End: 10-13-2023 take 1 tablet by mouth twice daily Losartan 50 mg tablet Discontinued 50 mg PO TWICE A DAY July 05, 2022 1:25pm October 13, 2023 11:34am Start: 08-25-2017 End: 07-05-2022 take 1 tablet by mouth once daily Losartan 50 MG tablet Discontinued 50 mg PO DAILY 60 August 25, 2017 1:00am July 05, 2022 1:29pm metFORMIN hydrochloride 1000 mg oral tablet (12 sources) Biguanide Start: 10-06-2020 take 1 tablet by mouth twice daily Metformin 1,000 mg tablet Active 1000 mg PO TWICE A DAY October 06, 2020 1:00am Start: 03-23-2020 End: 10-06-2020 take 1 tablet by mouth twice daily Metformin 500 mg tablet Discontinued 500 mg PO TWICE A DAY March 23, 2020 12:54pm October 06, 2020 3:53pm Start: 07-30-2018 End: 03-23-2020 take 2 tablets by mouth twice daily Metformin 500 mg tablet Discontinued 1000 mg PO TWICE A DAY July 30, 2018 1:00am March 23, 2020 12:56pm Start: 07-30-2018 End: 03-23-2020 take 1000 mg by mouth twice daily Metformin Discontinued 1000 MG PO TWICE A DAY July 30, 2018 12:00am March 23, 2020 11:56am metoprolol tartrate 25 mg oral tablet (20 sources) beta-Adrenergic Ronen Start: 12-13-2024 Metopr olol Tartrate 25 mg tablet Active 12.5 mg PO TWICE A DAY December 13, 2024 8:42am Start: 12-19-2023 End: 12-13-2024 take 1 tablet by mouth twice daily Metoprolol Tartrate 25 mg tablet Discontinued 25 mg PO TWICE A DAY December 19, 2023 10:04am December 13, 2024 8:43am Start: 06-07-2021 End: 12-19-2023 Metoprolol Tartrate 25 mg ta blet Discontinued 12.5 mg PO TWICE A DAY June 07, 2021 1:02pm December 19, 2023 10:04am Start: 06-07-2021 take 12.5 mg by mout h twice daily Metoprolol Tartrate Active 12.5 MG PO TWICE A DAY June 07, 2021 12:02pm Start: 12-01-2020 End: 06-07-2021 take 1 tablet by mouth twice daily Metoprolol Tartrate 25 mg tablet Discontinued 25 mg PO TWICE A DAY December 01, 2020 2:05pm June 07, 2021 1:02pm Start: 12-29-2017 End: 12-01-2020 Metoprolol Tartrate 25 mg ta blet Discontinued 12.5 mg PO .COMPLEX 0 August 08, 2018 1:17pm August 08, 2018 2:57pm 12.5 mg PO PT NEVER FILLED RX, not taking; Start: 12-29-2017 End: 12-01-2020 Metoprolol Tartrate Disconti nued 12.5 MG PO .COMPLEX 0 August 08, 2018 12:17pm August 08, 2018 1:57pm 12.5 mg PO PT NEVER FILLED RX, not taking; Sajquscr-Yfj-Xt-Lycopen-Lute in (Centrum Silver) 0.4-300-250 mg-mcg-mcg tablet (4 sources) Start: 01-28-2019 Hdqvalaq-Mee-Mz-Lycopen-Lute in (Centrum Silver) 0.4-300-250 mg-mcg-mcg tablet Active 1 {tbl} PO DAILY January 28, 2019 12:00am Start: 01-28-2019 take 1 tablet by em th once daily Nwaurhjf-Adg-Ck-Lycopen-Lutein (Centrum Silver) 0.4-300-250 mg-mcg-mcg tablet Active 1 TABLET PO DAILY January 27, 2019 11:00pm Start: 01-28-2019 take 1 tablet by em th once daily Ixmkmbeu-Onr-Mh-Lycopen-Lutein (Centrum Silver) 0.4-300-250 mg-mcg-mcg tablet Active 1 TABLET PO DAILY January 28, 2019 12:00am timolol 2.5 mg/ml ophthalmic solution (2 sources) beta-Adrenergic Ronen Start: 10-13-2023 Timolol Maleate 0.25 % drops Active NMA OPHTHALMIC October 13, 2023 1:00am Turmeric Root Extract (4 sources) Start: 10-06-2020 take 1 capsule by mouth once daily Turmeric Root Extract 500 mg capsule Active 600 mg PO DAILY October 06, 2020 1:00am Start: 10-06-2020 take 600 mg by mouth once beni y Turmeric Root Extract Active 600 MG PO DAILY October 06, 2020 12:00am Start: 10-06-2020 take 600 mg by mouth once beni y Turmeric Root Extract Active 600 MG PO DAILY October 06, 2020 1:00am Completed/Discontinued Medications Medication Drug Class(es) Dates Sig (Normalized) Sig (Original) apixaban 5 mg oral tablet (4 sources) Factor Xa Inhibitor Start: 11-24-2021 End: 07-05-2022 take 2 tablets by mouth twice daily, then take 1 tablet by mouth twice daily Apixaban (Eliquis Dvt-Pe Treat 30d Start) 5 mg (74 tabs) tablets,dose pack Discontinued 5 mg PO TWICE A DAY 74 November 24, 2021 1:00am July 05, 2022 1:23pm 10 mg twice a day for 7 days followed by 5 mg twice daily ascorbic acid 1000 mg oral tablet (8 sources) Vitamin C Start: 09-21-2018 End: 01-28-2019 Ascorbic Acid (Vitamin C) 1,000 mg tablet Discontinued 500 mg PO DAILY September 21, 2018 2:09pm January 28, 2019 11:03am Start: 09-21-2018 End: 01-28-2019 take 500 mg by mouth once daily Ascorbic Acid (Vitamin C) Discontinued 500 MG PO DAILY September 21, 2018 1:09pm January 28, 2019 10:03am Start: 08-23-2017 End: 09-21-2018 take 1 tablet by mouth once daily Ascorbic Acid (Vitamin C) 1,000 MG tablet Discontinued 1000 mg PO DAILY August 23, 2017 1:00am September 21, 2018 2:09pm atorvastatin 80 mg oral tablet (4 sources) HMG-CoA Reductase Inhibitor Start: 08-25-2017 End: 12-29-2017 take 1 tablet by mouth at bedtime Atorvastatin 80 MG tablet Discontinued 80 mg PO AT BEDTIME 60 August 25, 2017 1:00am December 29, 2017 10:55am carvedilol 3.125 mg oral tablet (4 sources) alpha-Adrenergic Ronen, beta-Adrenergic Ronen Start: 08-25-2017 End: 12-29-2017 take 1 tablet by mouth twice daily Carvedilol 3.125 MG tablet Discontinued 3.125 mg PO TWICE A DAY 120 August 25, 2017 1:00am December 29, 2017 11:18am clopidogrel 75 mg oral tablet (8 sources) P2Y12 Platelet Inhibitor Start: 07-05-2022 End: 10-13-2023 take 1 tablet by mouth once daily Clopidogrel (Plavix) 75 mg tablet Discontinued 75 mg PO DAILY July 05, 2022 12:00am October 13, 2023 12:00pm Start: 08-25-2017 End: 11-24-2021 take 1 tablet by mouth once daily Clopidogrel 75 MG tablet Discontinued 75 mg PO DAILY 60 August 25, 2017 1:00am November 24, 2021 3:14pm Fruit Pectin Gel (2 sources) Start: 12-01-2020 End: 03-02-2022 Fruit Pectin Gel Discontinue d 1 tbsp PO DAILY November 30, 2020 11:00pm March 02, 2022 12:17pm Start: 12-01-2020 End: 03-02-2022 Fruit Pectin Gel Discontinue d 1 tbsp PO DAILY December 01, 2020 12:00am March 02, 2022 1:17pm Fruit Pectin Gel gel (2 sources) Start: 12-01-2020 End: 03-02-2022 Fruit Pectin Gel gel Discontinued 1 tbsp PO DAILY December 01, 2020 12:00am March 02, 2022 1:17pm hydroCHLOROthiazide 25 mg oral tablet (16 sources) Thiazide Diuretic Start: 03-02-2022 End: 07-05-2022 Hydrochlorothiazide 25 mg tablet Discontinued 12.5 mg PO DAILY March 02, 2022 1:16pm July 05, 2022 1:28pm Start: 03-02-2022 End: 07-05-2022 take 12.5 mg by mouth once daily Hydrochlorothiazide Discontinued 12.5 MG PO DAILY March 02, 2022 12:16pm July 05, 2022 12:28pm Start: 12-01-2020 End: 03-02-2022 take 1 tablet by mouth once daily Hydrochlorothiazide 25 mg tablet Discontinued 25 mg PO DAILY December 01, 2020 2:04pm March 02, 2022 1:17pm Start: 09-21-2018 End: 12-01-2020 Hydrochlorothiazide 25 mg ta blet Discontinued 12.5 mg PO DAILY September 21, 2018 1:00am December 01, 2020 2:07pm Start: 09-21-2018 End: 12-01-2020 take 12.5 mg by mouth once daily Hydrochlorothiazide Discontinued 12.5 MG PO DAILY September 21, 2018 12:00am December 01, 2020 1:07pm Start: 08-25-2017 End: 09-21-2018 take 1 capsule by mouth once daily Hydrochlorothiazide 12.5 MG capsule Discontinued 12.5 mg PO DAILY 60 August 25, 2017 1:00am September 21, 2018 2:08pm insulin glargine 100 unt/ml injectable solution (8 sources) Insulin Analog Start: 12-01-2020 End: 10-13-2023 Insulin Glargine 100 unit/mL solution Discontinued 22 U SC EVERY EVENING December 01, 2020 2:04pm October 13, 2023 11:37am Start: 03-23-2020 End: 12-01-2020 Insulin Glargine 100 unit/mL solution Discontinued 15 U SC EVERY EVENING March 23, 2020 12:00am December 01, 2020 2:07pm Multivitamin 1 EACH tablet (2 sources) Start: 08-23-2017 End: 01-28-2019 Multivitamin 1 EACH tablet Discontinued 1 NMA PO DAILY August 23, 2017 1:00am January 28, 2019 11:03am Multivitamin preparation (2 sources) Start: 08-23-2017 End: 01-28-2019 Multivitamin Discontinued 1 EACH PO DAILY August 23, 2017 12:00am January 28, 2019 10:03am Start: 08-23-2017 End: 01-28-2019 Multivitamin Discontinued 1 EACH PO DAILY August 23, 2017 1:00am January 28, 2019 11:03am naproxen sodium 220 mg oral tablet (4 sources) Nonsteroidal Anti-inflammatory Drug Start: 12-29-2017 End: 09-06-2018 take 2 tablets by mouth once daily as needed for pain Naproxen Sodium (Flanax (Naproxen)) 220 mg tablet Discontinued 440 mg PO daily as needed for Pain December 29, 2017 12:00am September 06, 2018 4:12pm pravastatin sodium 20 mg oral tablet (4 sources) HMG-CoA Reductase Inhibitor Start: 12-29-2017 End: 07-30-2018 take 1 tablet by mouth at bedtime Pravastatin (Pravachol) 20 mg tablet Discontinued 20 mg PO AT BEDTIME December 29, 2017 12:00am July 30, 2018 11:24am rosuvastatin calcium 5 mg oral tablet (12 sources) HMG-CoA Reductase Inhibitor Start: 10-02-2018 End: 01-28-2019 take 1 tablet by mouth at bedtime Rosuvastatin 5 MG tablet Discontinued 5 mg PO AT BEDTIME October 02, 2018 1:00am January 28, 2019 11:03am Start: 09-21-2018 End: 01-28-2019 take 5 mg by mouth once daily Rosuvastatin (Crestor) 1 0 mg tablet Discontinued 5 mg PO DAILY September 21, 2018 1:00am January 28, 2019 11:03am Start: 09-06-2018 End: 09-21-2018 take 1 tablet by mouth once daily Rosuvastatin (Crestor) 5 mg tablet Discontinued 5 mg PO DAILY September 06, 2018 1:00am September 21, 2018 2:07pm Semaglutide (4 sources) Start: 06-20-2023 End: 12-13-2024 Semaglutide (Ozempic) 1 mg/d ose (4 mg/3 mL) pen injector Discontinued 0.5 mg SC EVERY WEEK June 20, 2023 2:08pm December 13, 2024 8:42am Start: 06-20-2023 Semaglutide (O zempic) 1 mg/dose (4 mg/3 mL) pen injector Active 0.5 mg SC EVERY WEEK June 20, 2023 2:08pm Start: 06-20-2023 End: 06-20-2023 Semaglutide (Ozempic) 1 mg/d ose (4 mg/3 mL) pen injector Discontinued 1 mg SC EVERY WEEK June 20, 2023 12:00am June 20, 2023 2:08pm Problems Problem Classification Problem Date Documented Da te Episodic/Chronic Acute myocardial infarction (4 sources) Myocardial infarction; Translations: [Non-ST elevation (NSTEMI) myocardial infarction] Onset: 08-23-2017 03-01-2022 Chronic Coronary atherosclerosis and other heart disease (19 sources) Preinfarction syndrome; Translations: [Unstable angina] Onset: 12-13-2024 10-05-2020 Chronic Coronary atherosclerosis and other heart disease (2 sources) Presence of coronary angioplasty implant and graft; Translations: [Presence of coronary angioplasty implant and graft] Onset: 12-13-2024 Episodic Diabetes mellitus without complication (4 sources) Hyperglycemia; Translations: [Hyperglycemia, unspecified] 02-13-2020 Episodic Disorders of lipid metabolism (5 sources) Hypercholesterolemi a; Translations: [Pure hypercholesterolemi a, unspecified] 09-14-2017 Chronic Essential hypertension (5 sources) Essential hypertension; Translations: [Essential (primary) hypertension] 07-14-2022 Chronic Comment on above: CONTROLLED WITH MED Other connective tissue disease (1 source) Pain in left leg; Translations: [Pain in left leg] Onset: 12-03-2024 Episodic Other screening for suspected conditions (not mental disorders or infectious disease) (15 sources) Patient encounter status; Translations: [Encounter for screening for malignant neoplasm of respiratory organs] Episodic Phlebitis; thrombophlebitis and thromboembolism (4 sources) Acute deep vein thrombosis of lower limb; Translations: [Acute embolism and thrombosis of unspecified deep veins of left lower extremity] 12-02-2021 Episodic Residual codes; unclassified (4 sources) Tobacco user; Translations: [Tobacco use] 03-01-2022 Episodic Residual codes; unclassified (1 source) Tobacco use; Translations: [Tobacco use disorder] Episodic Results Test Name Value Interpretation Reference Range Facility OPERATIVE PROCEDURESon 01-14 OPERATIVE PROCEDURES [facility] OPERATIVE REPORT NAME ACCOUNT SEX AGE ADMIT DISCHARGE PT MED. RECORD# NUMBER DATE DATE TYPE LEXUS [id number] M 74 01/07/25 01/07/25 2 RIGOBERTO Lupe [id number] ROOM: [facility] DATE OF : 1950 DICTATING PHYSICIAN: Brady Toledo DATE OF SURGERY: January 07, 2025 SURGEON: Brady Toledo MD APPRENTICE MACHINIST OUTSIDE: Estefania Rizzo PA-C ANESTHESIOLOGIST: Trice Chinchilla MD/GUSTAVO [...] of the syndesmosis with a TightRope device. congressional assistant, physician dental office assistant, was utilized throughout the entire procedure. Page 1 of 3 RIGOBERTO ALBERTS Operative Report RIGOBERTO Lupe LEXUS : 1950 She helped with patient positioning, holding of limb, and holding of retractors. She helped with exposure throughout. She helped with fracture reduction, maintenance reduction. She helped with internal fixation, wound closure, and bandage and splint application. Without operating room surgical technician, surgical time would have been significantly increased. [...] outrigger device with the help of the dental office assistant. Once this was done, we tested the [...] deep 2-0 Vicryl, inverted 2-0 Vicryl and Steri-Strips. We placed a sterile bandage, as well as his fracture boot. The patient will be nonweightbearing on the left ank (more content not included)... Normal [facility] C-ARM USAGE 1 HOURon 025 C-ARM USAGE 1 HOUR [place] [phone] Patient: RIGOBERTO ALBERTS Phone#: : [phone] Age: 74 Gender: M Pt. Type: Out Account: [id number] Location: [facility] Ordering: BRADY TOLEDO Exam Date: 01/07/2025/8:45 Family Phys: Charge Code: [id number] Physician: [place] Order #: [id number] Dose#: 4.89 mGy PROCEDURE: C-ARM USEAGE 1 [...] Lyla Tatum MD on 01/07/2025 at 13:[address] [facility] CBC-Complete Blood Cnt No Di ffon 01-03-2025 Erythrocyte distribution width (RBC) [Ratio] 13.2 % Normal 11.6-14.6 [facility] Comment on above: Order Comment: ADD O N PLEASE-LABS DRAW T-1 Performed By: #### L [id number], L100.0500, L500.2500 #### [facility] [address] [place], [address] Hematocrit (Bld) [Volume fraction] 44.4 % Normal 40-54 [facility] Comment on above: Order Comment: ADD O N PLEASE-LABS DRAW T-1 Performed By: #### L [id number], L100.0500, L500.2500 #### [facility] [address] [place], [address] Hemoglobin (Bld) [Mass/Vol] 15.1 g/dL Normal 13.0-16.5 [facility] Comment on above: Order Comment: ADD O N PLEASE-LABS DRAW T-1 Performed By: #### L [id number], L100.0500, L500.2500 #### [facility] [address] [place], [address] MCH (RBC) [Entitic mass] 31.3 pg Normal 27.0-32.0 [facility] Comment on above: Order Comment: ADD O N PLEASE-LABS DRAW T-1 Performed By: #### L [id number], L100.0500, L500.2500 #### [facility] [address] [place], [address] MCHC (RBC) [Mass/Vol] 34.0 g/dL Normal 32-36 [facility] Comment on above: Order Comment: ADD O N PLEASE-LABS DRAW T-1 Performed By: #### L [id number], L100.0500, L500.2500 #### [facility] [address] [place], [address] MCV (RBC) [Entitic vol] 92.1 fL Normal 80-94 [facility] Comment on above: Order Comment: ADD O N PLEASE-LABS DRAW T-1 Performed By: #### L [id number], L100.0500, L500.2500 #### [facility] [address] [place], [address] Platelet mean volume (Bld) [Entitic vol] 9.7 fL Normal 6.2-12.0 [facility] Comment on above: Order Comment: ADD O N PLEASE-LABS DRAW T-1 Performed By: #### L [id number], L100.0500, L500.2500 #### [facility] [address] [place], [address] Platelets (Bld) [#/Vol] 254 10*3/uL Normal 150-450 [facility] Comment on above: Order Comment: ADD O N PLEASE-LABS DRAW T-1 Performed By: #### L [id number], L100.0500, L500.2500 #### [facility] [address] [place], [address] RBC (Bld) [#/Vol] 4.82 10*6/uL Normal 4.6-6.2 [facility] Comment on above: Order Comment: ADD O N PLEASE-LABS DRAW T-1 Performed By: #### L [id number], L100.0500, L500.2500 #### [facility] [address] [place], [address] RDW SD 45.1 fl High 35.1-43.9 [facility] Comment on above: Order Comment: ADD O N PLEASE-LABS DRAW T-1 Performed By: #### L [id number], L100.0500, L500.2500 #### [facility] [address] [place], [address] WBC (Bld) [#/Vol] 9.0 10*3/uL Normal 4.4-11.[address] [facility] Comment on above: Order Comment: ADD O N PLEASE-LABS DRAW T-1 Performed By: #### L [id number], L100.0500, L500.2500 #### [facility] [address] [place], [address] Electrocardiogram reportOrde red By: Aman Ortiz on 01-03-2025 EKG study [facility] [address] [place] [address] 12 Lead EKG 01/02/25 1229 MR#: [id number] Acct: [id number] Name: RIGOBERTO ALBERTS Rep #:[id number] : 1950 74 From: Aman sauceda MD Attending Dr: JAKE Keen St atus: REG CLI Ordering Dr: Estefania Rizzo Date : 01/02/25 Location: PSN Sex: M C Admitted: Test Reason : PRE OP Blood Pressure : */* mmHG Vent. Rate : 85 BPM Atrial Rate : 85 BPM P-R Int : 182 ms QRS Dur : 86 ms QT Int : 384 ms P-R-T Axes : 67 -48 65 degrees QTcB Int : 456 ms Sinus rhythm with occasional Premature ventricular complexes Left anterior fascicular block Minimal voltage criteria for LVH, may be normal variant Cannot rule out Anteroseptal infarct , age undetermined Abnormal ECG Confirmed by Aman Ortiz ([id number]), non linear editor SHRUTHI LADD ([id number]) on 57:03:29 AM Referred By: Estefania Rizzo Confirmed By: Aman Ortiz 01/03/25 0703 Date _ Aman Ortiz MD CC: JAKE Keen; Dr. Richard Cardona, DO ~ Signed [facility] Work Phone: 12 Lead EKGon 01-02-2025 12 Lead EKG [facility] [address] [place] [address] 12 Lead EKG 01/02/25 1229 MR#: [id number] Acct: [id number] Name: RIGOBERTO ALBERTS Rep #: [id number] : 1950 74 From: Aman Ortiz MD Attending Dr: JAKE Keen Status: REG CL I Ordering Dr: Estefania Rizzo Date: 01/02/25 Location: PSN Sex: M C Admitted: Test Reason : PRE OP Blood Pressure : */* mmHG Vent. Rate : 85 BPM Atrial Rate : 85 BPM P-R Int : 182 ms QRS Dur : 86 ms QT Int : 384 ms P-R-T Axes : 67 -48 65 degrees QTcB Int : 456 ms Sinus rhythm with occasional Premature ventricular complexes Left anterior fascicular block Minimal voltage criteria for LVH, may be normal variant Cannot rule out Anteroseptal infarct , age undetermined Abnormal ECG Confirmed by Aman Ortiz ([id number]), non linear editor SHRUTHI LADD ([id number]) on 01/03/2025 7:03:29 AM Referred By: Estefania Rizzo Confirmed By: Aman Ortiz 01/03/25 0703 Date Aman Ortiz MD CC: JAKE Keen; Dr. Richard Cardona DO Signed Normal [facility] Anion gap in Serum or Plasma Ordered By: Estefania Rizzo on 01-02-2025 Anion gap [Moles/Vol] 12 mmol/L - [facility] BUN/creatinine ratioOrdered By: Estefania Rizzo on 01-02-2025 Urea nitrogen/Creatinine [Mass ratio] 23.5 mg/mg High 07-07 [facility] Basic Metabolic Profile (BMP )on 01-02-2025 BUN/CRE 23.5 RATIO High 07-07 [facility] Comment on above: Performed By: #### L [id number], L100.0500, L500.2500 #### [facility] [address] [place], [place], [address] Calcium [Mass/Vol] 9.7 mg/dL Normal 7.6-11.[address] [facility] Comment on above: Performed By: #### L [id number], L100.0500, L500.2500 #### [facility] [address] [place], [address] Chloride [Moles/Vol] 104 mmol/L Normal 98-108 [facility] Comment on above: Performed By: #### L [id number], L100.0500, L500.2500 #### [facility] [address] [place], [address] CO2 [Moles/Vol] 23.1 mmol/L Normal 21.0-32.0 [facility] Comment on above: Performed By: #### L [id number], L100.0500, L500.2500 #### [facility] [address] [place], [address] Creatinine [Mass/Vol] 0.78 mg/dL Normal 0.70-1.20 [facility] Comment on above: Performed By: #### L [id number], L100.0500, L500.2500 #### [facility] [facility] [address] [place], [address] GAP 12 Normal 5-15 [facility] Comment on above: Performed By: #### L 501.9985, L100.0500, L500.2500 #### [facility] [address] [place], [address] GFR/1.73 sq M.predicted among non-blacks MDRD (S/P/Bld) [Vol rate/Area] 93 mL/min/{1.73_m2} Normal >60 [facility] Comment on above: Result Comment: mL/m in/1.73m2 CKD-EPI Creatinine Equation (2020) Performed By: #### L 501.9985, L100.0500, L500.2500 #### [facility] [address] [place], [address] Glucose [Mass/Vol] 144 mg/dL High 70-[address] [facility] Comment on above: Performed By: #### L 501.9985, L100.0500, L500.2500 #### [facility] [address] [place], [address] Potassium [Moles/Vol] 3.9 mmol/L Normal 3.3-5.1 [facility] Comment on above: Performed By: #### L 501.9985, L100.0500, L500.2500 #### [facility] [address] [place], [address] Sodium [Moles/Vol] 139 mmol/L Normal 133-[address] [facility] Comment on above: Performed By: #### L 501.9985, L100.0500, L500.2500 #### [facility] [address] [place], [address] Urea nitrogen [Mass/Vol] 18 mg/dL Normal 4-19 [facility] Comment on above: Performed By: #### L 501.9985, L100.0500, L500.2500 #### [facility] [address] [place], [address] Carbon dioxide, total [Moles /volume] in Central venous bloodOrdered By: Estefania Rizzo on 01-02-2025 CO2 [Moles/Vol] 23.1 mmol/L 21.0-32.0 [facility] Chest PA and Lateralon 01-02 Chest PA and Lateral [facility] Services [address] [place] [address] Chest PA and Lateral MR#: [id number] Acct: [id number] Name: RIGOBERTO ALBERTS Rep #: [id number] : 1950 M 74 From: Jennifer Mcdonald DO PCP: Dr. Richard Cardona, DO Status: REG CLI Study: Chest PA and Lateral Date of Exam: 01/02/25 Exam# [id number] Ordering Dr: Estefania Rizzo PA PROCEDURE: CHEST PA AND LATERAL 01/02/2025 REASON FOR EXAM: PRE OP WASC TECHNIQUE: Frontal and lateral views of the chest. COMPARISON: None FINDINGS: Hardware: None Heart: The heart size is normal. Mediastinum: The mediastinal contour is unremarkable. Lungs: The lungs are clear. Bones: Degenerative changes are identified within the thoracic spine. RAD/Chest PA and Lateral IMPRESSION: NO ACUTE FINDINGS. Reading Location: [facility] CC: JAKE Keen; Dr. 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 Normal [facility] Chloride assayOrdered By: Milagro Rizzo on 01-02-2025 Chloride [Moles/Vol] 104 mmol/L 98-108 [facility] Erythrocyte distribution wid th (RBC) [Ratio]Ordered By: Estefania Rizzo on 01-02-2025 Erythrocyte distribution width (RBC) [Entitic vol] 45.1 fL High 35.1-43.9 [facility] Erythrocyte distribution wid th ratioOrdered By: Estefania Rizzo on 01-02-2025 Erythrocyte distribution width (RBC) [Ratio] 13.2 % 11.6-14.6 [facility] GFR/1.73 sq M.predicted michele g non-blacks MDRD (S/P/Bld) [Vol rate/Area]Ordered By: Estefania Rizzo on 01-02-2025 Estimated GFR (MDRD) Non-Af Amer 93 >60 [facility] Comment on above: mL/min/1.73m2 CKD-EP I Creatinine Equation (2020) Hematocrit Auto (Bld) [Volum e fraction]Ordered By: Estefania Rizzo on 01-02-2025 Hematocrit (Bld) [Volume fraction] 44.4 % 40-54 [facility] Hemoglobin A1con 01-02-2025 HbA1c (Bld) [Mass fraction] 8.1 % High <=5.6 [facility] Comment on above: Result Comment: Norm al < 5.7 % Prediabetic 5.7 - 6.4 % Diabetic >or= 6.5 % Please note range changes. Performed By: #### L 501.1247, L100.0500, L500.2500 #### [facility] [address] [place], [address] Hemoglobin A1c percentageOrd ered By: Estefania Rizzo on 01-02-2025 HbA1c (Bld) [Mass fraction] 8.1 % High <5.7 [facility] Comment on above: Normal < 5.7 % Predi abetic 5.7 - 6.4 % Diabetic >or= 6.5 % Please note range changes. Hemoglobin measurementOrdere d By: Estefania Rizzo on 01-02-2025 Hemoglobin (Bld) [Mass/Vol] 15.1 g/dL 13.0-16.5 [facility] MCV (mean corpuscular volume ) determinationOrdered By: Estefania Rizzo on 01-02-2025 MCV (RBC) [Entitic vol] 92.1 fL 80-94 [facility] Mean corpuscular hemoglobin (MCH) determinationOrdered By: Estefania Rizzo on 01-02-2025 MCH (RBC) [Entitic mass] 31.3 pg 27.0-32.0 [facility] Mean corpuscular hemoglobin concentration (MCHC) determinationOrdered By: Estefania Rizzo on 01-02-2025 MCHC (RBC) [Mass/Vol] 34.0 g/dL 32-36 [facility] Mean platelet volume determi nationOrdered By: Estefania Rizzo on 01-02-2025 Platelet mean volume (Bld) [Entitic vol] 9.7 fL 6.2-12.0 [facility] Platelet countOrdered By: Milagro Rizzo on 01-02-2025 Platelets (Bld) [#/Vol] 254 10*3/uL 150-450 [facility] Potassium (Unsp spec) [Mass/ Vol]Ordered By: Estefania Rizzo on 01-02-2025 Potassium [Moles/Vol] 3.9 mmol/L 3.3-5.1 [facility] RBC Auto (Bld) [#/Vol]Ordere d By: Estefania Rizzo on 01-02-2025 RBC (Bld) [#/Vol] 4.82 10*6/uL 4.6-6.2 [facility] Serum creatinine measurement (mass/volume)Ordered By: Estefania Rizzo on 01-02-2025 Creatinine [Mass/Vol] 0.78 mg/dL 0.70-1.20 [facility] Serum glucose measurement (m ass/volume)Ordered By: Estefania Rizzo on 01-02-2025 Glucose [Mass/Vol] 144 mg/dL High 70-[address] [facility] Serum or plasma calcium ami urement (mass/volume)Ordered By: Estefania Rizzo on 01-02-2025 Calcium [Mass/Vol] 9.7 mg/dL 7.6-11.[address] [facility] Serum or plasma urea nitroge n measurement (mass/volume)Ordered By: Estefania Rizzo on 01-02-2025 Urea nitrogen [Mass/Vol] 18 mg/dL 4-19 [facility] Sodium levelOrdered By: Lorena Rizzo on 01-02-2025 Sodium [Moles/Vol] 139 mmol/L 133-[address] [facility] White blood cell (WBC) count Ordered By: Estefania Rizzo on 01-02-2025 WBC (Bld) [#/Vol] 9.0 10*3/uL 4.4-11.[address] [facility] Cardiology Visit Reporton Cardiology Visit Report [facility] [address] [place] [address]. [address] [place] [address] OFFICE VISIT Date of Service: 12/13/24 MR#: [id number] Acct: [id number] Name: RIGOBERTO ALBERTS Rep #: [id number] : 1950 Provider: Dr. Devyn Collazo MD Age/Sex: 74/M Location: [facility] Status: Signed HPI HPI History of Present Illness Details: Pleasant 74-year-old man who presents for a follow-up visit. He is a gentleman with a history of multivessel coronary artery disease with an LAD stent placed in August 2017. He was noted to have stenosis of his right coronary artery and circumflex artery. In August 2018, he underwent a repeat cardiac catheterization with successful angioplasty and stenting of the proximal right coronary artery with a 4.0x38 Promus Synergy stent in an obtuse marginal vessel with a 2.25x16 Promus Synergy stent in the mid circumflex artery with a 2.25x12 Promus Synergy stent. His ejection fraction which had been 25%. He underwent stress test on 10/16/2020 that showed no significant ischemia. His echocardiogram on 10/16/2020 showed an ejection fraction of 45%. He denies chest, arm, jaw, or neck discomfort. He denies palpitations. He denies bilateral lower extremity edema. He denies claudication. He states shortness of breath with activity such as going up hill or steps. He attributes this to smoking history and he considers unchanged over the last ten years. He denies shortness of breath at rest, orthopnea, or PND. He denies chronic cough. He denies significant, sudden weight gain. He states dizziness that has improved with changes to his Ozempic therapy. He denies lightheadedness, near-syncope, or syncope. He denies blood in urine, blood in stool, or epistaxis. He denies fever or chills. He denies myalgia. He denies fatigue. Intake Vital Signs 10/13/23 10:25 12/13/24 08:37 Height 5 ft 11 in 5 ft 11 in Weight: 228 lb BMI 31.8 BP 131/84 H Blood Pressure Location Lt brachial Position Sitting Respiration 16 Pulse 80 Pulse Source Monitor Intake Visit Reasons: 1 Y FU Cook Ship Required: No Accompanied by: Self Is patient in pain?: No Allergies rosuvastatin (From Crestor) Adverse Reaction (Severe, Verified 12/13/24 08:40) Myalgias atorvastatin (From Lipitor) Adverse Reaction (Verified 12/13/24 08:40) Diarrhea, vomiting, myalgias carvedilol (From Coreg) Adverse Reaction (Verified 12/13/24 08:40) unknown Medications ???Medication ???Instructions ???Recorded ???Confirmed ???Type aspirin 81 mg tablet,delayed 81 mg PO DAILY heart health 12/13/24 History release flaxseed oil 1,000 mg capsule 1,000 mg PO DAILY supplement 08/2312/13/24 History zbqhrhix-lan-donon acid 0.4 1 tab PO DAILY 01/28/19 12/13/24 H istory mg-lycopene 300 mcg-lutein 250 mcg tablet (Centrum Silver) cholecalciferol (vitamin D3) 125 125 mcg PO DAILY 10/06/20 12/13/24 History mcg (5,000 unit) capsule metformin 1,000 mg tablet 1,000 mg PO BID 10/06/20 12/13/24 History turmeric root extract 500 mg 600 mg PO DAILY 10/06/20 12/13/24 History capsule ezetimibe 10 mg tablet (Zetia) 10 mg PO DAILY 11/24/21 12/13/24 H istory latanoprost 0.005 % eye drops drp ophthalmic (eye) 10/13/2311/17 History losartan 100 mg tablet 100 mg PO DAILY 10/13/23 12/13/24 History timolol maleate 0.25 % eye drops drp ophthalmic (eye) 10/13/2311/17 History insulin glargine 100 unit/mL 20 unit subcut QPM 12/13/24 History subcutaneous solution metoprolol tartrate 25 mg tablet 12.5 mg PO BID 12/13/24 12/13/24 H istory Have you fallen in the past year?: Yes PFSH Medical History Wears glasses Arthritis Gout High cholesterol DVT (deep venous thrombosis) Smoker CPAP (continuous positive airway pressure) dependence Emphysema, unspecified History of stress test History of echocardiogram Cardiology follow-up encounter Encounter for screening for malignant neoplasm of lung in current smoker with 30 pack year history or greater Old anteroseptal myocardial infarction Essential (primary) hypertension Ischemic cardiomyopathy Atherosclerosis of coronary artery of [place] heart without angina pectoris MEERA (obstructive sleep apnea) Tobacco abuse Hypercholesterolemia Non-STEMI (non-ST elevated myocardial infarction) (08/23/17) Surgical History History of eye surgery (02/03/20) right foot surgery History of bilateral knee arthroplasty History of coronary artery stent placement (09/07/18) Family History Uncle Myocardial infarction Father Prostate cancer Other Pacemaker- mother Social History (Reviewed 12/13/24 @ (more content not included)... Normal [facility] Femur Min 2 Viewson 11-22-19 25 Femur Min 2 Views [facility] [address] [place] [address] Femur Min 2 Views MR#: [id number] Acct: [id number] Name: RIGOBERTO ALBERTS Rep #: [id number] : 1950 M 74 From: Jennifer Mcdonald DO PCP: Dr. Richard Cardona DO Status: REG CLI Study: Femur Min 2 Views Date of Exam: 11/21/24 Exam# [id number] Ordering Dr: Richard Cardona DO PROCEDURE: FEMUR MIN 2 VIEWS REASON FOR EXAM: Pain TECHNIQUE: 5 view(s) of the left femur. COMPARISON: None. FINDINGS: No fracture. No suspicious bone lesion. Status post knee arthroplasty. Normal alignment at the hip and knee. Soft tissues are unremarkable. RAD/Femur Min 2 Views IMPRESSION: No acute fracture. Reading Location: PAT CC: Dr. 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 Normal [facility] Glucose Glucometer (BldC) [M ass/Vol]on 07-19-2022 Glucose [Mass/Vol] 156 mg/dL 74-[address] [facility] Work Phone: Comment on above: MANAGEMENT OF PATIEN T CARE PER NURSING PROTOCOL .Auto Diffon 11-20-2019 Ammonia (P) [Mass/Vol] 0.40 10 3/mcL Normal 0.09-1.40 [facility] ([place]) Comment on above: Performed By: #### C BC, ADIFF, ANEU, APTT, PRO, RFP, GFR #### [address] [address] Basophils (Bld) [#/Vol] 0.00 10 3/mcL Normal 0.00-0.27 [facility] ([place]) Comment on above: Performed By: #### C BC, ADIFF, ANEU, APTT, PRO, RFP, GFR #### [address] [address] Basophils/100 WBC (Bld) 0.3 % Normal 0.0-2.5 [facility] ([place]) Comment on above: Performed By: #### C BC, ADIFF, ANEU, APTT, PRO, RFP, GFR #### [address] [address] Eosinophils (Bld) [#/Vol] 0.30 10 3/mcL Normal 0.00-0.65 [facility] ([place]) Comment on above: Performed By: #### C BC, ADIFF, ANEU, APTT, PRO, RFP, GFR #### [address] [address] Eosinophils/100 WBC (Bld) 4.6 % Normal 0.0-6.0 [facility] ([place]) Comment on above: Performed By: #### C BC, ADIFF, ANEU, APTT, PRO, RFP, GFR #### [address] [address] Lymphocytes (Bld) [#/Vol] 1.70 10 3/mcL Normal 0.90-4.32 [facility] ([place]) Comment on above: Performed By: #### C BC, ADIFF, ANEU, APTT, PRO, RFP, GFR #### [address] [address] Lymphocytes/100 WBC (Bld) 24.7 % Normal 20.0-40.0 [facility] ([place] Comment on above: Performed By: #### C BC, ADIFF, ANEU, APTT, PRO, RFP, GFR #### [address] [address] Monocytes/100 WBC (Bld) 6.1 % Normal 2.0-13.0 [facility] ([place]) Comment on above: Performed By: #### C BC, ADIFF, ANEU, APTT, PRO, RFP, GFR #### [address] [address] Neutrophils/100 WBC (Bld) 64.3 % Normal 50.0-75.0 [facility] ([place]) Comment on above: Performed By: #### C BC, ADIFF, ANEU, APTT, PRO, RFP, GFR #### [address] [address] .GFRon 11-20-2019 GFR Non- >60 Normal [facility] ([place]) Comment on above: Result Comment: GFR Population mean for , Non- Americans Ages 20-29 = 116 mL/min/1.73 sq.m. Ages 30-39 = 107 mL/min/1.73 sq.m. Ages 40-49 = 99 mL/min/1.73 sq.m. Ages 50-59 = 93 mL/min/1.73 sq.m. Ages 60-69 = 85 mL/min/1.73 sq.m. Ages 70+ = 75 mL/min/1.73 sq.m. Chronic Kidney Disease: Less than 60 mL/min/1.73 square meters End Stage Renal Disease: Less than 15 mL/min/1.73 square meters Performed By: #### C BC, ADIFF, ANEU, APTT, PRO, RFP, GFR #### [place] [address] GFR >60 Normal [facility] ([place]) Comment on above: Result Comment: GFR Population mean for , Non- Americans Ages 20-29 = 116 mL/min/1.73 sq.m. Ages 30-39 = 107 mL/min/1.73 sq.m. Ages 40-49 = 99 mL/min/1.73 sq.m. Ages 50-59 = 93 mL/min/1.73 sq.m. Ages 60-69 = 85 mL/min/1.73 sq.m. Ages 70+ = 75 mL/min/1.73 sq.m. Chronic Kidney Disease: Less than 60 mL/min/1.73 square meters End Stage Renal Disease: Less than 15 mL/min/1.73 square meters Performed By: #### C BC, ADIFF, ANEU, APTT, PRO, RFP, GFR #### [address] [address] .NEUABSon 11-20-2019 Neutrophils (Bld) [#/Vol] 4.40 10 3/mcL Normal 2.25-8.10 [facility] ([place]) Comment on above: Performed By: #### C BC, ADIFF, ANEU, APTT, PRO, RFP, GFR #### [place] [address] APTTon 11-20-2019 aPTT Coag (Bld) [Time] 30.2 s Normal 25.0-35.0 [facility] ([place]) Comment on above: Result Comment: For Heparin anticoagulation therapy, the recommended therapeutic range is: 54-77 seconds (APTT Correlation with Anti-Xa therapeutic range of 0.3-0.7 units/ml). PLEASE REFERENCE THE PHARMACY PROTOCOL FOR DOSING. Performed By: #### C BC, ADIFF, ANEU, APTT, PRO, RFP, GFR #### [place] [address] aPTT Coag (Bld) [Time] Unknown Normal [facility] ([place]) Comment on above: Performed By: #### C BC, ADIFF, ANEU, APTT, PRO, RFP, GFR #### [place] [address] CBCon 11-20-2019 Erythrocyte distribution width (RBC) [Ratio] 13.2 % Normal 11.5-15.5 [facility] ([place]) Comment on above: Performed By: #### C BC, ADIFF, ANEU, APTT, PRO, RFP, GFR #### [place] [address] Hematocrit (Bld) [Volume fraction] 46.5 % Normal 40.0-52.0 [facility] ([place]) Comment on above: Performed By: #### C BC, ADIFF, ANEU, APTT, PRO, RFP, GFR #### [place] [address] Hemoglobin (Bld) [Mass/Vol] 15.3 G/dL Normal 13.0-17.5 [facility] ([place]) Comment on above: Performed By: #### C BC, ADIFF, ANEU, APTT, PRO, RFP, GFR #### [place] [id number] MCH (RBC) [Entitic mass] 31.3 pg Normal 27.0-33.0 [facility] ([place] Comment on above: Performed By: #### C BC, ADIFF, ANEU, APTT, PRO, RFP, GFR #### [address] [address] MCHC (RBC) [Mass/Vol] 33.0 G/dL Normal 32.0-36.0 [facility] ([place]) Comment on above: Performed By: #### C BC, ADIFF, ANEU, APTT, PRO, RFP, GFR #### [place] [id number] MCV (RBC) [Entitic vol] 95.0 fL Normal 81.0-100.0 [facility] ([place]) Comment on above: Performed By: #### C BC, ADIFF, ANEU, APTT, PRO, RFP, GFR #### [place] [id number] Platelet mean volume (Bld) [Entitic vol] 7.4 fL Normal 6.4-10.5 [facility] ([place]) Comment on above: Performed By: #### C BC, ADIFF, ANEU, APTT, PRO, RFP, GFR #### [address] [address] Platelets (Bld) [#/Vol] 244 10 3/mcL Normal 150-450 [facility] ([place]) Comment on above: Performed By: #### C BC, ADIFF, ANEU, APTT, PRO, RFP, GFR #### [address] [address] RBC (Bld) [#/Vol] 4.90 10 6/mcL Normal 4.50-6.00 [facility] ([place]) Comment on above: Performed By: #### C BC, ADIFF, ANEU, APTT, PRO, RFP, GFR #### [address] [address] WBC (Bld) [#/Vol] 6.80 10 3/mcL Normal 4.50-10.80 [facility] ([place]) Comment on above: Performed By: #### C BC, ADIFF, ANEU, APTT, PRO, RFP, GFR #### [address] [address] PROon 11-20-2019 INR Coag (PPP) [Relative time] 1.0 {INR} Normal [facility] ([place]) Comment on above: Result Comment: The [employer] (CHEST, 1992, 102:312S-25S) recommended therapeutic range for oral anticoagulant therapy is: LOW RISK: Prophylaxis of venous thrombosis INR: 2.0-3.0 Treatment of pulmonary embolism 2.0-3.0 Prevention of systemic embolism 2.0-3.0 HIGH RISK: Mechanical prosthetic valves 2.5-3.5 Performed By: #### C BC, ADIFF, ANEU, APTT, PRO, RFP, GFR #### [address] [address] PT Coag (PPP) [Time] 11.4 s Normal 9.0-14.6 [facility] ([place]) Comment on above: Result Comment: Effe ctive 04/01/08, Protime results may be affected by some antibiotics (i.e. Ciprofloxacin, Azithromycin, Bactrim) which may potentiate the action of oral anticoagulants, with further increases in Protime/INR. Performed By: #### C BC, ADIFF, ANEU, APTT, PRO, RFP, GFR #### [address] [address] RFPon 11-20-2019 Albumin [Mass/Vol] 3.7 G/dL Normal 3.2-4.8 [facility] ([place]) Comment on above: Performed By: #### C BC, ADIFF, ANEU, APTT, PRO, RFP, GFR #### [address] [address] Calcium [Mass/Vol] 9.5 mg/dL Normal 8.4-10.1 [facility] ([place]) Comment on above: Performed By: #### C BC, ADIFF, ANEU, APTT, PRO, RFP, GFR #### [address] [address] Chloride [Moles/Vol] 103 mmol/L Normal 98-110 [facility] ([place]) Comment on above: Performed By: #### C BC, ADIFF, ANEU, APTT, PRO, RFP, GFR #### [address] [address] CO2 [Moles/Vol] 27 mmol/L Normal 22-32 [facility] ([place]) Comment on above: Performed By: #### C BC, ADIFF, ANEU, APTT, PRO, RFP, GFR #### [address] [address] Creatinine [Mass/Vol] 0.74 mg/dL Normal 0.60-1.40 [facility] ([place]) Comment on above: Performed By: #### C BC, ADIFF, ANEU, APTT, PRO, RFP, GFR #### [address] [address] Electrolyte Balance 8.0 mEq/L Normal 4.0-15.0 [facility] ([place]) Comment on above: Performed By: #### C BC, ADIFF, ANEU, APTT, PRO, RFP, GFR #### [address] [address] Glucose [Mass/Vol] 188 mg/dL High 82-115 [facility] ([place]) Comment on above: Performed By: #### C BC, ADIFF, ANEU, APTT, PRO, RFP, GFR #### [address] [address] Phosphate [Mass/Vol] 2.9 mg/dL Normal 2.5-4.5 [facility] ([place]) Comment on above: Performed By: #### C BC, ADIFF, ANEU, APTT, PRO, RFP, GFR #### [address] [address] Potassium [Moles/Vol] 4.0 mmol/L Normal 3.5-5.0 [facility] ([place]) Comment on above: Performed By: #### C BC, ADIFF, ANEU, APTT, PRO, RFP, GFR #### [address] [address] Sodium [Moles/Vol] 138 mmol/L Normal 136-145 [facility] ([place]) Comment on above: Performed By: #### C BC, ADIFF, ANEU, APTT, PRO, RFP, GFR #### [place] [id number] [address] [place] [address] Urea nitrogen [Mass/Vol] 17.0 mg/dL Normal 8.0-22.0 [facility] ([place]) Comment on above: Performed By: #### C BC, ADIFF, ANEU, APTT, PRO, RFP, GFR #### [address] [address] Urea nitrogen/Creatinine [Mass ratio] 23.0 ratio High 10.0-22.0 [facility] ([place]) Comment on above: Performed By: #### C BC, ADIFF, ANEU, APTT, PRO, RFP, GFR #### [address] [address] Vital Signs Date Time Vital Sign Value Performing Clinician Faci lity 12-13-2024 08:37-0400 Body height 180.[address] Richard Cardona DO Work Phone: [facility] 12-13-2024 08:37-0400 Body mass index (BMI) [Ratio] 31.8 kg/m2 Dr. Richard Cardona DO Work Phone: [facility] 12-13-2024 08:37-0400 Body weight 103.[address] Richard Cardona DO Work Phone: [facility] 12-13-2024 08:37-0400 Diastolic blood pressure 84 mm[Hg] Dr. Richard Cardona DO Work Phone: [facility] 12-13-2024 08:37-0400 Heart rate 80 /min Dr. Richard Cardona DO Work Phone: [facility] 12-13-2024 08:37-0400 Respiratory rate 16 /min Dr. Richard Cardona DO Work Phone: [facility] 12-13-2024 08:37-0400 Systolic blood pressure 131 mm[Hg] Dr. Richard Cardona DO Work Phone: [facility] 07-19-2022 10:15-0400 Body temperature 97.7 [degF] Dr. Dante Luevano Work Phone: [facility] Work Phone: 07-19-2022 10:15-0400 Diastolic blood pressure 70 mm[Hg] Dr. Dante Luevano Work Phone: [facility] Work Phone: 07-19-2022 10:15-0400 Heart rate 72 /min Dr. Dante Luevano Work Phone: [facility] Work Phone: 07-19-2022 10:15-0400 Respiratory rate 16 /min Dr. Dante Luevano Work Phone: [facility] Work Phone: 07-19-2022 10:15-0400 SaO2% (BldA) [Mass fraction] 97 % Dr. Dante Luevano Work Phone: [facility] Work Phone: 07-19-2022 10:15-0400 Systolic blood pressure 114 mm[Hg] Dr. Dante Luevano Work Phone: [facility] Work Phone: 07-19-2022 08:41-0400 Body height 180.[address] Dante Luevano Work Phone: [facility] Work Phone: 07-19-2022 08:41-0400 Body mass index (BMI) [Ratio] 32 kg/m2 Dr. Dante Luevano Work Phone: [facility] Work Phone: 07-19-2022 08:41-0400 Body weight 104.[address] Dante Luevano Work Phone: [facility] Work Phone: 07-05-2022 13:18-0400 Body mass index (BMI) [Ratio] 32.6 kg/m2 Dr. Dante Luevano Work Phone: [facility] Work Phone: 07-05-2022 13:18-0400 Body temperature 97.6 [degF] Dr. Dante Luevano Work Phone: [facility] Work Phone: 07-05-2022 13:18-0400 Body weight 106.[address] Dante Luevano Work Phone: [facility] Work Phone: 07-05-2022 13:18-0400 Diastolic blood pressure 84 mm[Hg] Dr. Dante Luevano Work Phone: [facility] Work Phone: 07-05-2022 13:18-0400 Heart rate 85 /min Dr. Dante Luevano Work Phone: [facility] Work Phone: 07-05-2022 13:18-0400 Respiratory rate 18 /min Dr. Dante Luevano Work Phone: [facility] Work Phone: 07-05-2022 13:18-0400 SaO2% (BldA) [Mass fraction] 97 % Dr. Dante Luevano Work Phone: [facility] Work Phone: 07-05-2022 13:18-0400 Systolic blood pressure 151 mm[Hg] Dr. Dante Luevano Work Phone: [facility] Work Phone: 04-05-2022 13:09-0400 Body mass index (BMI) [Ratio] 32.6 kg/m2 Dr. Dante Luevano Work Phone: [facility] Work Phone: 04-05-2022 13:09-0400 Body temperature 98 [degF] Dr. Dante Luevano Work Phone: [facility] Work Phone: 04-05-2022 13:09-0400 Body weight 106.[address] Dante Luevano Work Phone: [facility] Work Phone: 04-05-2022 13:09-0400 Diastolic blood pressure 76 mm[Hg] Dr. Dante Luevano Work Phone: [facility] Work Phone: 04-05-2022 13:09-0400 Heart rate 92 /min Dr. Dante Luevano Work Phone: [facility] Work Phone: 04-05-2022 13:09-0400 Respiratory rate 15 /min Dr. Dante Luevano Work Phone: [facility] Work Phone: 04-05-2022 13:09-0400 SaO2% (BldA) [Mass fraction] 96 % Dr. Dante Luevano Work Phone: [facility] Work Phone: 04-05-2022 13:09-0400 Systolic blood pressure 120 mm[Hg] Dr. Dante Luevano Work Phone: [facility] Work Phone: Encounters Encounter Date Encounter Type Care Provider Facility Start: 01-08-2025 Encounter for other preprocedural examination Estefania JOSEPH [facility] Start: 01-07-2025 End: 01-07-2025 ambulatory BRADY Kebede [facility] Start: 01-02-2025 End: 01-02-2025 Non-patient / Non-visit Dr. Aman Ortiz MD -[facility] Work Phone: Start: 01-02-2025 End: 01-02-[address] Richard Cardona DO Work Phone: [facility] Work Phone: Start: 01-02-2025 End: 01-02-2025 Patient encounter procedure Estefania JOSEPH -Pulmonary Services/Neurology Work Phone: Start: 01-02-2025 End: 01-02-2025 ambulatory Estefania JOSEPH Facility:[facility] Start: 12-13-2024 End: 12-13-[address] Devyn Collazo MD -[facility] Work Phone: Start: 12-13-2024 End: 12-13-2024 ambulatory Devyn Collazo Facility:[facility] Start: 11-21-2024 End: 11-21-[address] Richard Cardona DO Work Phone: [facility] Work Phone: Start: 11-21-2024 End: 11-21-[address] Richard Cardona DO -Radiology, [place] Work Phone: Start: 11-21-2024 End: 11-21-2024 ambulatory Richard Cardona Facility:[facility] Start: 08-01-2022 End: 08-01-[address] Dante Luevano Work Phone: [facility] Work Phone: Start: 08-01-2022 End: 08-01-[address] [facility]ue[facility]ano [facility] Start: 07-19-2022 Non-patient / Non-visit Dr. Justin Luevano Work Phone: [facility] Start: 07-19-2022 End: 07-19-2022 Admission to same day surgery center Dr. Dante Luevano Work Phone: [facility] Start: 07-19-2022 End: 07-19-[address] Dante Luevano Work Phone: [facility] Work Phone: Start: 07-05-2022 End: 07-05-[address] Dante Luevano Work Phone: [facility] Start: 04-05-2022 End: 04-05-[address] Dante Luevano Work Phone: [facility] Procedures Date Procedure Procedure Detail Performing Clinician Start: 01-02-2025 X-ray of chest, PA a nd lateral views Dr. Richard Cardona DO Work Phone: Start: 11-21-2024 Plain X-ray of femur Dr Fly Cardona DO Work Phone: Start: 08-01-2022 Plain X-ray of clavicle Dr. Dante Luevano Work Phone: Start: 07-19-[address] Dante Luevano Work Phone: Start: 04-05-[address] Dante Luevano Work Phone: Start: 09-07-2018 History of placement of stent for coronary artery disease History of coronary artery stent placement Dr. Devyn Collazo MD Comment on above: ERV-UIM-Isrw LAD w/ 3.0 x 32 Promus Synergy Stent and POBA- Ostium of D1 08/24/17; PCI-EARL Prox RCA w/ 4.0 X 38 mm Promus Synergy Stent 08/22/2018; EARL-OM1 w/ 2.25 X 16 mm Promus Synergy and EARL-mid LCX w/ 2.25 X 12 Promus Synergy 09/07/2018 Plan of Treatment Date Care Activity Detail Author Start: 03-03-2025 ambulatory Ambulatory Facility:[facility] Start: 07-19-2022 Colsc flx w/rmvl of tumor polyp lesion snare tq COLONOSCOPY W/LESION REMOVAL [facility] Work Phone: Start: 07-19-2022 Colsc flx with direc guera submucosal njx any sbst COLONOSCOPY SUBMUCOUS NJX [facility] Work Phone: Start: 07-19-2022 Patient discharge [facility] Work Phone: NM Heart Views W str ess and W radionuclide IV [facility] Patient referral [facility] Work Phone: Heart [facility] Payers Date Payer Category Payer Self-pay [id number] 2023 Medicare [id number] 1950 Unknown [id number] [id number] Unknown [id number] Unknown [id number] [id number] [id number] Unknown [id number] [id number] [id number] Unknown [id number] [id number] [id number] Unknown [id number] [id number] [id number] Unknown [id number] Social History Date Type Detail Facility Start: 07-14-2022 End: 07-14-2022 Tobacco smoking status NHIS Unknown if ever smoked [facility] Work Phone: Start: 08-24-2017 None [facility] Start: 08-24-2017 Alone [facility] Start: 02-12-2020 Cigarettes [facility] Start: 1950 Sex Assigned At Male [facility] Start: 10-13-2023 [facility] Start: 12-03-2024 End: 01-08-2025 Sex Male (finding) [facility] Goals Date Patient Goal Desired Activity /State Mental Status Date Assessment Result Facility 07-19-2022 Cognitive function Voice/Name [facility] Work Phone: Radiology Diagnostic study note 01-02-2025 Note Date & Type Note Facility 01-02-2025 Radiology Diagnostic study note [facility] Imaging Services [address] [place] [address] Chest PA and Lateral MR#: [id number] Acct: [id number] Name: RIGOBERTO ALBERTS Rep #: [id number] : 1950 M 74 From: Serafin Mcdonald DO PCP: Dr. Richard Cardona DO Status: REG CLI Study:Chest PA and Lateral Date of Exam: 01/02/25 Exam# [id number] Ordering Dr: Dalila Rizzo PROCEDURE: CHEST PA AND LATERAL 01/02/2025 REASON FOR EXAM: PRE OP WASC TECHNIQUE: Frontal and lateral views of the chest. COMPARISON: None FINDINGS: Hardware: None Heart: The heart size is normal. Mediastinum: The mediastinal contour is unremarkable. Lungs: The lungs are clear. Bones: Degenerative changes are identified within the thoracic spine. RAD/Chest PA and Lateral IMPRESSION: NO ACUTE FINDINGS. Reading Location: PAT CC: JAKE Keen; Dr. 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 [facility] Evaluation note 12-13-2024 Note Date & Type Note Facility 12-13-2024 Evaluation note Diagnosis Onset Date Resolution Essential (primary) hypertension chronic December 13, 2024 8:23am History of coronary artery stent placement September 07, 2018 chronic December 13, 2024 8:23am Hypercholesterolemia chronic Tha h 2024 8:23am Ischemic cardiomyopathy chronic M arch 2024 8:23am [facility] Work Phone: Radiology Diagnostic study note 11-21-2024 Note Date & Type Note Facility 11-21-2024 Radiology Diagnostic study note [facility] Imaging Services [address] [place] [address] Femur Min 2 Views MR#: [id number] Acct: [id number] Name: RIGOBERTO ALBERTS Rep #: [id number] : 1950 M 74 From: Serafin Mcdonald DO PCP: Dr. Richard Cardona DO Status: REG CLI Study:Femur Min 2 Views Date of Exam: Exam# [id number] Ordering Dr: Richard Cardona DO PROCEDURE: FEMUR MIN 2 VIEWS REASON FOR EXAM: Pain TECHNIQUE: 5 view(s) of the left femur. COMPARISON: None. FINDINGS: No fracture. No suspicious bone lesion. Status post knee arthroplasty. Normal alignment at the hip and knee. Soft tissues are unremarkable. RAD/Femur Min 2 Views IMPRESSION: No acute fracture. Reading Location: PAT CC: Dr. 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 [facility] Evaluation note Note Date & Type Note Facility Evaluation note Diagnosis Onset Date [id number] acute Tobacco abuse chronic Screening for intestinal cancer acute [facility] Work Phone: Evaluation note Note Date & Type Note Facility Evaluation note Diagnosis Onset Date Screening for intestinal cancer acute [facility] Work Phone: Evaluation note Note Date & Type Note Facility Evaluation note No assessment information availa ble [facility] Work Phone: Reason for referral (narrative) Note Date & Type Note Facility Reason for referral (narrative) No reason for referral information available [facility] Work Phone: Summary Purpose Family History No Family History Records Found Relationship Condition Age at Onset Recorded Date/T nathalia Not Specified Unknown uncle Myocardial infarction Unknown father Malignant neoplasm of prostate Unknown Advance Directives No Advanced Directives Records Found Advance Directive Response Recorded Date/ Time Name of Medical Power of Farm Equipment Assembler BROTHER July 14, 2022 12:37pm Advance Directives Yes August 10:58am Living Will Yes July 14 12:37pm Power of Farm Equipment Assembler Yes July 14, 2022 12:37pm Advance Directive Response Recorded Date/ Time Name of Medical Power of Farm Equipment Assembler BROTHER July 14, 2022 11:37am Advance Directives Yes August 9:58am Living Will Yes July 14 11:37am Power of Farm Equipment Assembler Yes July 14, 2022 11:37am Advance Directive Response Recorded Date/ Time Advance Directives Yes August 10:58am Advance Directive Response Recorded Date/ Time Living Will Yes July 14 12:37pm Do you have a Healthcare Power of Farm Equipment Assembler? Yes July 14, 2022 12:37pm Advance Directives Yes August 10:58am Chief Complaint and Reason for Visit Chief Complaint LCS TOBACCO USE COLONOSCOPY Reason for Visit [id number] Tobacco abuse Screening for intestinal cancer Chief Complaint COLONOSCOPY Reason for Visit Screening for intest inal cancer Chief Complaint Admit Date 1 Y FU December 13, 2024 8:2 3am PRE OP January 02, 2025 12: 17pm PRE OP January 02, 2025 12: 29pm Reason for Visit Admit Date Essential (primary) hypertension November 172024 8:23am History of coronary artery stent placeme nt December 13, 2024 8:23am Hypercholesterolemia December 13, 2024 8: 23am Ischemic cardiomyopathy December 13, 2024 8:23am Additional Source Comments (unrecognized sect ion and content) No Status Records FoundNo Status Records FoundNo Status Records Found INFORMATION SOURCE (unrecogn ized section and content) DATE CREATED AUTHOR 12/04/2019 [facility] ([place]) DATE CREATED AUTHOR AUTHOR'S ORGANIZ ATION 01/15/2025 [facility] DATE CREATED AUTHOR AUTHOR'S ORGANIZ ATION 02/18/2025 [facility] Care Teams (unrecognized sec tion and content) Team Status: Active Member Role Status Dates Dr. Dante Luevano MD Family Provider Active Dr. Richard Cardona DO Primary Care Provider Active Team Status: Inactive Member Role Status Dates Dr. Richard Cardona DO Primary Care Provider Active Start: November 21, 2024 End: November 21, 2024 Dr. Richard Cardona DO Attending Provider Active Start: November 21, 2024 End: November 21, 2024 Dr. Richard Cardona DO Referring Provider Active Start: November 21, 2024 End: November 21, 2024 Team Status: Active Member Role Status Dates Dr. Richard Cardona DO Primary Care Provider Active Team Status: Inactive Member Role Status Dates Dr. Richard Cardona DO Primary Care Provider Active Start: December 13, 2024 End: December 13, 2024 Dr. Richard Cardona DO Referring Provider Active Start: December 13, 2024 End: December 13, 2024 Dr. Devyn Collazo MD Attending Provider Active S tart: December 13, 2024 End: December 13, 2024 Team Status: Inactive Member Role Status Dates Dr. Richard Cardona DO Primary Care Provider Active Start: January 02, 2025 End: January 02, 2025 JAKE Devries Attending Provider Active Start: January 02, 2025 End: January 02, 2025 JAKE Devries Referring Provider Active Start: January 02, 2025 End: January 02, 2025 Team Status: Active Member Role Status Dates Dr. Richard Cardona DO Primary Care Provider Active Start: January 02, 2025 End: January 02, 2025 Dr. Aman Ortiz MD Attending Provider Active Start: January 02, 2025 End: January 02, 2025 JAKE Devries Referring Provider Active Start: January 02, 2025 End: January 02, 2025 Goals (unrecognized section and content) Goals may be documented in a n alternate sectionGoals may be documented in an alternate section FOR RECORDS PERTAINING TO PATIENTS WHO ARE OR HAVE BEEN ENROLLED IN A CHEMICAL DEPENDENCY/SUBSTANCEABUSE PROGRAM, SOME INFORMATION MAY BE OMITTED. This clinical summary was aggregated from multiple sources. Caution should be exercised in using it in the provision of clinical care. This summary normalizes information from multiple sources, and as a consequence, information in this document may materially change the coding, format and clinical context of patient data. In addition, data may be omitted in some cases. CLINICAL DECISIONS SHOULD BE BASED ON THE PRIMARY CLINICAL RECORDS. [employer] [facility]. provides no warranty or guarantee of the accuracy or completeness of information in this document.
--- NOTE | 2025-03-03 19:55 | STRESSREP ---
Stress Test Report Pharmacologic myocardial perfusion stress test. 75-year-old male with a history of coronary artery disease Resting EKG demonstrates sinus rhythm with poor R wave progression with a rate of 74 bpm. Resting blood pressure is 142/80 mmHg. 0.4 mg of regadenoson was infused per usual protocol followed by rapid intravenous saline flush injection. Continuous EKG monitoring was performed. The maximum heart rate was 96 bpm which was 66% of max impacted heart rate the maximum workload was 1 metabolic equivalent. At rest there were no ST or T wave changes noted to suggest ischemia and at peak infusion nonspecific ST changes were noted which did not meet the criteria for ischemia. No clinical angina is noted. The final blood pressure was 136/74 mmHg. Myocardial perfusion protocol. 13.8 mCi of technetium 99m sestamibi was injected at rest. 0.4 mg of regadenoson was infused per usual protocol. At peak infusion 42.3 mCi of technetium 99m sestamibi was injected stress images were obtained stress and rest images were reconstructed and compared in the short axis vertical long and horizontal long axis. Gated images were also obtained. Perfusion SPECT analysis: Review of the stress images demonstrate normal uptake of tracer noted in all areas of the myocardium except for the mid anterior wall to the apex with a large perfusion defect. The resting images similar demonstrated normal uptake of tracer noted in all areas of the myocardium except for the mid anterior wall and apex with a persistent perfusion defect suggestive of a previous extensive anterior wall infarct. No reversibility is noted suggest ischemia. Gated SPECT analysis: The gated ejection fraction is 32%. Conclusion: Pharmacologic myocardial perfusion stress test with evidence of anterior apical infarct. Reduced ejection fraction. No ischemia noted.
== END | disposition home or self-care (01) ==
LOC: CVS 06:03
PROVIDERS: PCP Family Medicine; Referring Provider Internal Medicine Cardiovascular Disease; Visit Provider Internal Medicine Cardiovascular Disease
DX: I25.5 Ischemic cardiomyopathy (principal); I25.10 Atherosclerotic heart disease of native coronary artery without angina pectoris; Z95.5 Presence of coronary angioplasty implant and graft
CPT/HCPCS: 78452; 93017; 93306; A9500; Q9957; A4216; C8929; J2785

== ENCOUNTER → 2025-04-14 | Outpatient (CLI) | payer MEDICARE, SELFPAY ==
[2018-08-22 13:48] VITALS: BMI 33.4
--- NOTE | 2025-04-14 14:43 | VDLE_ITS ---
Reason For Study Reason For Study: Pain RLE RIGHT LEFT GSV is normal. CFV is compressible, spontaneous, phasic, competent, Acute deep vein thrombosis is noted in the CFV. It is and demonstrates normal augmentation. dilated and NONCOMPRESSIBLE. Acute deep vein thrombosis is noted in the FV. It is dilated and NONCOMPRESSIBLE. Acute deep vein thrombosis is noted in the POP V. It is dilated and NONCOMPRESSIBLE. Acute deep vein thrombosis is noted in the T/P Trunk. It is dilated and NONCOMPRESSIBLE. Acute deep vein thrombosis is noted in the Gastrocnemius V. It is dilated and NONCOMPRESSIBLE. Acute deep vein thrombosis is noted in the PTV. It is dilated and NONCOMPRESSIBLE. Acute deep vein thrombosis is noted in the Per V. It is dilated and NONCOMPRESSIBLE. Acute deep vein thrombosis is noted in the Soleus V. It is dilated and NONCOMPRESSIBLE Rt CFV DVT is not well adhered to vein wall. Procedure This is a venous duplex using B-mode, color flow and spectral Doppler. Exam performed in department. A preliminary report was called and/or faxed to Dr. Cardona. VL/Venous Duplex US, Unilateral Interpretation Summary Acute deep vein thrombosis noted in the right common femoral vein, femoral vein , popliteal vein, tibioperoneal trunk vein, gastrocnemius vein, posterior tibial vein, peroneal vein, soleus vein. Ordering Physician: Richard Cardona Referring Physician: Richard Cardona Performed By: Luz Wilson, RDCS, RVT
== END | disposition home or self-care (01) ==
PROVIDERS: PCP Family Medicine; Referring Provider Family Medicine; Visit Provider Family Medicine
DX: M79.604 Pain in right leg (principal)
CPT/HCPCS: 93971

== ENCOUNTER → 2025-06-17 | Outpatient (CLI) | payer MEDICARE, SELFPAY ==
[2018-08-22 13:48] VITALS: BMI 33.4
--- OUTSIDE RECORDS SUMMARY | 2025-01-07 08:22 | XMS RPT_ITS ---
Author Name Auto Generated Organization [facility] Care Team Providers Care Residential Subcontractor Name Role Phone BRADY TOLEDO DR Attending Unavailable BRADY TOLEDO DR Primary Care Unavailable BRADY TOLEDO DR Admitting Unavailable PROBLEMS No Problem Records Found PROCEDURES No Procedure Records Found RESULTS C-ARM USAGE 1 HOUR Observed: 01/07/2025 12:52 PM Status: F Source: [address] [address] Patient: RIGOBERTO ALBERTS Phone#: : 1950 Age: 74 Gender: M Pt. Type: Out Account: [id number] Location: [facility] Ordering: BRADY TOLEDO Exam Date: 01/07/2025/8:45 Family Phys: Charge Code: [id number] Physician: [place] Order #: [id number] Dose#: 4.89 mGy PROCEDURE: C-ARM USEAGE 1 HR COMPARISON: None. INDICATIONS: Pain. TOTAL DOSE: 4.89 mGy FINDINGS: IMAGES: BONES: Medullary narda is present transfixing the fibula. There is deformity of the medial malleolus consistent with chronic fracture. SOFT TISSUES: Negative. No visible soft tissue swelling. EFFUSION: None visible. OTHER: Negative. CONCLUSION: 1. Internal fixation of fibular fracture. Dictated by: Lyla Tatum MD on 01/07/2025 at 13:32 Approved by: Lyla Tatum MD on 01/07/2025 at 13:33 OPERATIVE PROCEDURES Observed: 8:26 AM Status: F Source: [facility] OPERATIVE REPORT NAME ACCOUNT SEX AGE ADMIT DISCHARGE PT MED. RECORD# NUMBER DATE DATE TYPE LEXUS, [id number] M 74 01/07/25 01/07/25 2 RIGOBERTO [place] [id number] ROOM: [facility] DATE OF : 1950 DICTATING PHYSICIAN: Brady Toledo DATE OF SURGERY: January 07, 2025 SURGEON: Brady Toledo MD AREA DEVELOPMENT MANAGER: Estefania Rizzo PA-C ANESTHESIOLOGIST: Trice Chinchilla MD/GUSTAVO ANESTHETIC: General. PREOPERATIVE DIAGNOSIS: Left ankle bimalleolar fracture with syndesmosis disruption. POSTOPERATIVE DIAGNOSIS: Left ankle bimalleolar fracture with syndesmosis disruption. OPERATION PERFORMED: Open reduction and internal fixation of left ankle fracture with open reduction and internal fixation of syndesmosis disruption. COMPLICATIONS: None. ESTIMATED BLOOD LOSS: Less than 20. SPECIAL MEDICATIONS: Ancef 2 grams. INDICATIONS FOR SURGERY: The patient is a 74-year-old male that sustained a left ankle fracture with syndesmosis disruption due to fracture displacement and instability of the mortise. He wished to have surgery. Appropriate informed consent was obtained and signed. FINDINGS: Findings were consistent with his preoperative x-rays showing a displaced lateral malleolus fracture, a medial malleolus avulsion type fracture, as well as syndesmosis disruption. He underwent FibuLock placement into the lateral malleolus after reduction, as well as internal fixation of the syndesmosis with a TightRope device. child life assistant, physician assistant analyst, was utilized throughout the entire procedure. Page 1 of 3 RIGOBERTO ALBERTS Operative Report RIGOBERTO ALBERTS : 1950 She helped with patient positioning, holding of limb, and holding of retractors. She helped with exposure throughout. She helped with fracture reduction, maintenance reduction. She helped with internal fixation, wound closure, and bandage and splint application. Without neurosurgical nurse, surgical time would have been significantly increased. Surgical outcome could have been less optimal. DESCRIPTION OF OPERATION: The patient was taken to the OR and transferred to the OR table. He was given a general anesthetic. Appropriate time-out was performed. Ancef 2 grams was given IV preoperatively. A well-padded tourniquet was applied to his left upper thigh, but not inflated. The left lower extremity had x-ray brought in to confirm our positioning. Once this was done, the left lower extremity was prepped, padded, and draped in the usual orthopedic sterile fashion for the procedure. With the help of fluoroscopy, we mapped out our incisions. We made a lateral incision over the fracture site after appropriate time-outs were performed. This brought us down to the fracture site. It was irrigated and it was then reduced with a bone reduction clamp. Once this was done, AP and lateral and oblique fluoroscopic images helped to confirm our adequacy of our reduction. There was noted to be a comminuted piece at the lateral cortex. At this point, we made our longitudinal incision distal to the lateral malleolus and through blunt dissection brought us down to the tip of the lateral malleolus. We used the guide system and soft tissue protector to place the guide pin from the tip of the lateral malleolus across the fracture site and into the fibula shaft. Once this was confirmed under AP and lateral fluoroscopic images, we did the appropriate distal reaming followed by the appropriate proximal reaming. Once this was done and the fracture remained well reduced, we placed the 3.8 mm x 130 mm FibuLock nail after removing the guide pin. We then used the device to open the proximal talons. We then placed two distal cross locking screws into the fibula through the nail. This was done with the outrigger device with the help of the assistant analyst. Once this was done, we tested the syndesmosis stability and still noted some widening. We now reduced the syndesmosis with the large reduction clamp with one prong on one of the screws in the fibula and another prong over the medial malleolus. We had reduced the mortise anatomically based on radiographic findings. We then placed a TightRope using the outrigger device. It was drilled through the fibula through the nail itself and through the tibia. We then removed the outrigger device and placed our TightRope device under standard technique and tightened it down under standard technique. Once this was done, final set of AP, lateral, and oblique fluoroscopic images were taken and saved. The wounds were thoroughly irrigated. We retested our syndesmosis fixation, as well as over our construct and found it to be stable and in good position on all radiographic views. We repaired the wounds with the deep 2-0 Vicryl, inverted 2-0 Vicryl and Steri- Strips. We placed a sterile bandage, as well as his fracture boot. The patient will be nonweightbearing on the left ankle for 6 weeks followed by weightbearing as tolerated with the boot on for 6 weeks. We will start gentle ankle motion at 6 weeks. We will use aspirin 81 mg twice a day for DVT prevention. Ancef was given preoperatively. Dictated By: Brady Toledo MD Page 2 of 3 RIGOBERTO ALBERTS Operative Report RIGOBERTO ALBERTS : 1950 01/07/25 16:41 JOB #: [id number] Transcribed By: am 01/07/25 17:04 Electronically signed by: E-SIGN DR. BRADY TOLEDO M.D. 01/14/25 13:33 Page 3 of 3 RIGOBERTO ALBERTS Operative Report ALLERGIES No Allergies Records Found ENCOUNTERS ADMIT/DISCHARGE ACCOUNT NUMBER ADMITTING ENCOUNTER CLASS LOCATION SOURCE 01/07/2025/ [id number] Ambulatory Building:[facility] PAYERS ENCOUNTER GUARANTOR PAYER SUBSCRIBER SOURCE 01/07/2025 RIGOBERTO ARGUETAB: [id number] [place] [id number]: () Primary Insurance:[employer] MEDIC[employer] OUTPATIENTPolicy Number: [id number] Date:Plan Name:B3 RIGOBERTO ARGUETAB: [id number] [place] [id number] [facility]
--- NOTE | 2025-06-17 13:25 | CT_ITS ---
PROCEDURE: LOW DOSE CT LUNG SCREENING 06/17/2025 REASON FOR EXAM: LUNG CANCER SCREENING 3/4 pack per day smoker times 50 years TECHNIQUE: Procedure Code: [id number] Modality: CT Procedure: LOW DOSE CT LUNG SCREENING Coronal and Sagittal reconstruction series were provided. One or more dose reduction techniques were used (e.g., Automated exposure control, adjustment of the mA and/or kV according to patient size, use of iterative reconstruction technique). REFERENCE LINK: [facility] Lung-RADS RADIATION DOSE SUMMARY: CTDlvol: 4.02 mGy DLP: 154.51 mGycm COMPARISON: None FINDINGS: PULMONARY NODULES: (Only nodules >3mm are reported) Lung windows show the lungs to be mildly hyperexpanded without significant bleb formation. There is nonspecific pleural thickening in both hemithoraces with evidence of chronic bronchitis but no organized infiltrate or effusion, there is dependent atelectasis without suspicious noncalcified mass or nodule. Soft tissue windows show a normal-appearing thyroid gland. No suspicious adenopathy. Peripheral calcifications noted in the thoracic aorta without aneurysm. There are calcified coronary vessels Bony structures show degenerative change Limited cuts through the upper abdomen do not show a suspicious abnormality CT/Low Dose CT Lung Screening IMPRESSION: Chronic changes without a superimposed acute pulmonary process or suspicious no ncalcified mass or nodule Coronary artery calcification (CAC) is is present Lung-RADS Category: 1 NEGATIVE. RECOMMEND 12-MONTH SCREENING LDCT. Other Significant Findings: Reading Location: [id number]
== END | disposition home or self-care (01) ==
LOC: CT 13:21
PROVIDERS: PCP Family Medicine; Referring Provider Nurse Practitioner Family; Visit Provider Nurse Practitioner Family
DX: Z12.2 Encounter for screening for malignant neoplasm of respiratory organs (principal); Z87.891 Personal history of nicotine dependence
CPT/HCPCS: 71271

== ENCOUNTER 2025-07-18 05:37 | Day surgery (SDC) | payer MEDICARE, SELFPAY ==
[2018-08-22 13:48] VITALS: BMI 33.4
--- NOTE | 2025-07-17 12:54 | PAT.ANESEVAL ---
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 When Was Last Pacemaker Check QUESTION #4 FULL TEXT: You/Your Family Experience fever (hyperthermia) with Anesthesia Last Oral Intake Last Oral intake: Last Oral Intake NPO since Meds taken in AM with sips of water? Meds patient instructed to take am of surgery PONV PONV - stamp presser: PONV - stamp presser Female Yes 07/17/25 11:20 HX of Motion Sickness No 07/17/25 11:20 HX of N/V After Surgery No 07/17/25 11:20 Non-Smoker No 07/17/25 11:20 Duration of Surgery greater No 07/17/25 11:20 than 60 minutes Number of Risk Factors 1 07/17/25 11:20 PONV Score Low Risk 07/17/25 11:20 Height & Weight Height & Weight: Anesthesia: Height & Weight Height 5 ft 11 in 06/17/25 12:56 Respiratory Assessment Respiratory Assessment - stamp presser: Respiratory Tract Infection Hx - stamp presser Hx Respiratory Tract Infection No 07/17/25 11:20 STOP Sleep Apnea STOP Sleep Apnea - stamp presser: STOP Sleep Apnea - stamp presser Hx Hypertension Yes: CONTROLLED WITH MEDS 07/17/25 11:20 Hx Sleep Apnea Yes 07/17/25 11:20 CPAP Yes 07/17/25 11:20 BIPAP No 07/17/25 11:20 Do you snore loudly (louder than talking or can be heard Do you often feel tired/ fatigued/ sleepy during daytime? Has anyone observed you stop breathing during sleep? STOP Results Positive 07/17/25 11:20 QUESTION #5 FULL TEXT : Do you snore loudly (louder than talking or can be heard through closed doors)? 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 Specify any problems Hx of Preganancy in last 3 N/A 07/17/25 11:20 Months Nurse Filling Out Transfusion VCHRISTIN 07/17/25 11:20 & Questions: Date: 07/17/25 07/17/25 11:20 Time: 11:22 07/17/25 11:20 Patient unable to answer at this time (ie. confused, unrespo /Reproduction History /Reproductive History - stamp presser: /Reproductive Hx- stamp presser Hx Now No 07/17/25 11:20 Gestational Age (in weeks): EDC: Hx Hx Para Hx Section SAB No 07/17/25 11:20 PFS Medical History (Updated 07/17/25 @ 11:20 by Mary Moreno) Insulin dependent diabetes mellitus Diabetes Injury of head and neck Loss of consciousness Sleep apnea Chronic cough History of heart attack Encounter for screening for malignant neoplasm of lung Wears glasses Arthritis Gout High cholesterol DVT (deep venous thrombosis) Smoker CPAP (continuous positive airway pressure) dependence Emphysema, unspecified History of stress test History of echocardiogram Cardiology follow-up encounter Encounter for screening for malignant neoplasm of lung in current smoker with 30 pack year history or greater Old anteroseptal myocardial infarction Essential (primary) hypertension Ischemic cardiomyopathy Atherosclerosis of coronary artery of [place] heart without angina pectoris MEERA (obstructive sleep apnea) Tobacco abuse Hypercholesterolemia Non-STEMI (non-ST elevated myocardial infarction) (08/23/17) Home Medications ?Medication ?Instructions ?Recorded ?Last Taken ?Type aspirin 81 mg tablet,delayed 81 mg PO DAILY heart health 08/23/17 07/16/25 History release flaxseed oil 1,000 mg capsule 1,000 mg PO DAILY supplement 08/23/17 08/22/17 22:00 History tfgonnnl-ots-qpchf acid 0.4 1 tab PO DAILY 01/28/19 Unknown History mg-lycopene 300 mcg-lutein 250 mcg tablet (Centrum Silver) metformin 1,000 mg tablet 1,000 mg PO BID 10/06/20 Unknown History turmeric root extract 500 mg 600 mg PO DAILY 10/06/20 Unknown History capsule losartan 100 mg tablet 100 mg PO QHS 10/13/23 Unknown History metoprolol tartrate 25 mg tablet 12.5 mg PO BID 12/13/24 Unknown History alirocumab 150 mg/mL subcutaneous 150 mg subcut Q4W 04/23/25 Unknown History pen injector (Praluent Pen) bee pollen 550 mg capsule mg PO 04/23/25 Unknown History insulin glargine 100 unit/mL 22 unit subcut QPM 04/23/25 Unknown History subcutaneous solution rivaroxaban 20 mg tablet (Xarelto) 20 mg PO QDAY 04/23/25 07/15/25 History royal jelly 500 mg capsule 500 mg PO DAILY 04/23/25 Unknown History Allergy/AdvReac Type Severity Reaction Status Date / Time rosuvastatin (From Crestor) AdvReac Severe Myalgias Verified 07/17/25 11:06 atorvastatin (From Lipitor) AdvReac Diarrhea, Verified 07/17/25 11:06 vomiting, myalgias carvedilol (From Coreg) AdvReac unknown Verified 07/17/25 11:06 Family History Uncle Myocardial infarction Father Prostate cancer Other Pacemaker- mother Surgical History (Updated 07/17/25 @ 11:20 by Mary Moreno) History of cardiac catheterization Hx of colonoscopy History of ankle surgery History of eye surgery (02/03/20) right foot surgery History of bilateral knee arthroplasty History of coronary artery stent placement (09/07/18) Social History Smoking Status: Current every day smoker tobacco type: cigarettes Tobacco: How many years used: 50 Electronic Cigarette Use: not used second hand exposure: Yes quit status: has quit before alcohol intake: never substance use type: does not use caffeine: No Audit: Pertinent Findings Pertinent Findings EKG Perinent findings: 01/02/2025. Sinus rhythm with occasional PVC. LAFB. Minimal voltage criteria for LVH. Cannot rule out anteroseptal infarct, age undetermined. Stress test pertinent findings: March 03, 2025.. EF of 32%. No reversibility is noted to suggest ischemia. There is a large perfusion defect in the mid anterior wall and apex suggestive of previous infarct. Echo (EF%) pertinent findings: 03/03/2025. EF of 45%. No aortic stenosis noted. Heart catheterization pertinent findings: On 09/07/2018. Successful EARL of the proximal OM1. Successful EARL of the mid left circumflex. Consult pertinent findings: 12/13/2024. Dr. Collazo. 1. Status post coronary artery stent placement-patient status post EARL x 4. Last stress test shows no ischemia. Will repeat stress test (see above). 2. Ischemic cardiomyopathy-EF has risen from 25% in 2017 to 45% in 2020. Continue metoprolol. [facility]. 3. Hypertension?controlled. Recommendation Anesthesia Recommendation Anesthesia recommendation: OPTIMIZED for anesthesia
[2025-07-18] VITALS (7 sets, daily range): BP systolic 114–148; BP diastolic 61–81; PULSE 74–76; RESP 16–20; TEMP 36.1–36.7; O2SAT 93–97; BMI 31.9
[2025-07-18] MEDS: Lactated Ringers 1,000 ML 15 ML IV (06:41)
--- NOTE | 2025-07-18 06:51 | PCM.PRE.AN2 ---
ASA Classification* ASA Classification ASA Classification: 3 Assessment & Plan Anesthesia* Anesthesia Assessment Anesthesia Assessment: Discussed sedation and/or anesthesia options, risks, benefits, and alternatives with patient/parents/legal guardian/POA. Questions invited. The patient/parents/legal guardian/POA seems to understand and agrees to proceed with anesthesia plan. Reviewed the physical assessment, medical history, allergy history and patient home medications list prior to surgery/procedure/anesthetic and documented any changes. Performed airway and anesthesia risk assessments. Anesthesia Type Anesthesia Type: MAC Anesthesia Focused Assessment* Temperature: 98.1 F Pulse Rate: 76 Blood Pressure: 148/80 Respiratory Rate: 20 Pulse Ox: 97 Airway Assessment Mouth opens: >3 cm Mallampati Score: II Labs Anesthesia Preop lab: CBC WBC, (4.4-11.0) 9.0 K/mm3 01/02/25, 13:06 RBC, (4.6-6.2) 4.82 M/mm3 01/02/25, 13:06 Hgb, (13.0-16.5) 15.1 g/dL 01/02/25, 13:06 Hct, (40-54) 44.4 % 01/02/25, 13:06 Plt Count, (150-450) 254 K/mm3 01/02/25, 13:06 CHEMISTRY Potassium, (3.3-5.1) 3.9 mmol/L 01/02/25, 13:06 Sodium, (133-145) 139 mmol/L 01/02/25, 13:06 Magnesium, (1.8-2.4) 2.2 mg/dL 08/24/17, 05:00 BUN, (4-19) 18 mg/dL 01/02/25, 13:06 Creatinine, (0.70-1.20) 0.78 mg/dL 01/02/25, 13:06 Glucose, (70-99) 144 mg/dL H 01/02/25, 13:06 POC Glucose, (74-106) 156 mg/dL H 07/19/22, 08:37 COAG PT, (11.7-14.9) 12.4 SECONDS 11/24/21, 13:58 Pre-Assessment Diagnosis/Proposed Procedure Planned Operative Procedure(s): COLONOSCOPY Anesthesia History Anesthesia History - dominatrix: Anesthesia History - dominatrix Hx Hospitalization No 07/17/25 11:20 Any Problems With Anesthesia No 07/17/25 11:20 Cholinesterase deficiency No 07/17/25 11:20 You/Your Family Experience No 07/17/25 11:20 fever (hyperthermia) with Relationship Recent Exposure to Contagious No 07/19/22 08:41 Disease Does patient have nerve No 07/17/25 11:20 stimulator Patient instructed to have device shut off --Does patient have Pacemaker No 07/18/25 06:32 or ICD? When Was Last Pacemaker Check QUESTION #4 FULL TEXT: You/Your Family Experience fever (hyperthermia) with Anesthesia Last Oral Intake Last Oral intake: Last Oral Intake NPO since 00:00 07/18/25 06:32 Meds taken in AM with sips of Yes 07/18/25 06:32 water? Meds patient instructed to take am of surgery PONV PONV - dominatrix: PONV - dominatrix Female Yes 07/17/25 11:20 HX of Motion Sickness No 07/17/25 11:20 HX of N/V After Surgery No 07/17/25 11:20 Non-Smoker No 07/17/25 11:20 Duration of Surgery greater No 07/17/25 11:20 than 60 minutes Number of Risk Factors 1 07/17/25 11:20 PONV Score Low Risk 07/17/25 11:20 Height & Weight Height & Weight: Anesthesia: Height & Weight Height 5 ft 11 in 07/18/25 06:32 Weight: 104 kg 07/18/25 06:32 Body Mass Index (BMI) 31.9 07/18/25 06:32 Respiratory Assessment Respiratory Assessment - dominatrix: Respiratory Tract Infection Hx - dominatrix Hx Respiratory Tract Infection No 07/17/25 11:20 STOP Sleep Apnea STOP Sleep Apnea - dominatrix: STOP Sleep Apnea - dominatrix Hx Hypertension Yes: CONTROLLED WITH MEDS 07/17/25 11:20 Hx Sleep Apnea Yes 07/17/25 11:20 CPAP Yes 07/17/25 11:20 BIPAP No 07/17/25 11:20 Do you snore loudly (louder than talking or can be heard Do you often feel tired/ fatigued/ sleepy during daytime? Has anyone observed you stop breathing during sleep? STOP Results Positive 07/17/25 11:20 QUESTION #5 FULL TEXT : Do you snore loudly (louder than talking or can be heard through closed doors)? 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 Specify any problems Hx of Preganancy in last 3 N/A 07/17/25 11:20 Months Nurse Filling Out Transfusion VCHRISTIN 07/17/25 11:20 & Questions: Date: 07/17/25 07/17/25 11:20 Time: 11:22 07/17/25 11:20 Patient unable to answer at this time (ie. confused, unrespo /Reproduction History /Reproductive History - dominatrix: /Reproductive Hx- dominatrix Hx Now No 07/17/25 11:20 Gestational Age (in weeks): EDC: Hx Hx Para Hx Section SAB No 07/17/25 11:20 Active Medications Active Medications: Current Medications Generic Name Dose Route Start Last Admin Trade Name Freq PRN Reason Stop Dose Admin Lactated Ringer's 1,000 mls @ 15 mls/hr 07/18/25 06:15 07/18/25 06:41 IV 15 mls/hr .Q48H OUMOU Administration PFSH Medical History Insulin dependent diabetes mellitus Diabetes Injury of head and neck Loss of consciousness Sleep apnea Chronic cough History of heart attack Encounter for screening for malignant neoplasm of lung Wears glasses Arthritis Gout High cholesterol DVT (deep venous thrombosis) Smoker CPAP (continuous positive airway pressure) dependence Emphysema, unspecified History of stress test History of echocardiogram Cardiology follow-up encounter Encounter for screening for malignant neoplasm of lung in current smoker with 30 pack year history or greater Old anteroseptal myocardial infarction Essential (primary) hypertension Ischemic cardiomyopathy Atherosclerosis of coronary artery of [place] heart without angina pectoris MEERA (obstructive sleep apnea) Tobacco abuse Hypercholesterolemia Non-STEMI (non-ST elevated myocardial infarction) (08/23/17) Home Medications ?Medication ?Instructions ?Recorded ?Last Taken ?Type aspirin 81 mg tablet,delayed 81 mg PO DAILY heart health 08/23/17 07/16/25 History release flaxseed oil 1,000 mg capsule 1,000 mg PO DAILY supplement 08/23/17 07/16/25 History lfrosein-mca-tultp acid 0.4 1 tab PO DAILY 01/28/19 07/15/25 History mg-lycopene 300 mcg-lutein 250 mcg tablet (Centrum Silver) metformin 1,000 mg tablet 1,000 mg PO BID 10/06/20 07/14/25 History turmeric root extract 500 mg 600 mg PO DAILY 10/06/20 07/16/25 History capsule losartan 100 mg tablet 100 mg PO QHS 10/13/23 07/18/25 History metoprolol tartrate 25 mg tablet 12.5 mg PO BID 12/13/24 07/18/25 History alirocumab 150 mg/mL subcutaneous 150 mg subcut Q4W 04/23/25 06/22/25 History pen injector (Praluent Pen) bee pollen 550 mg capsule 550 mg PO DAILY health 04/23/25 07/16/25 History insulin glargine 100 unit/mL 22 unit subcut QPM 04/23/25 07/17/25 21:29 History subcutaneous solution 11 unit rivaroxaban 20 mg tablet (Xarelto) 20 mg PO QDAY 04/23/25 07/15/25 History royal jelly 500 mg capsule 500 mg PO DAILY 04/23/25 07/16/25 History ginseng 100 mg capsule See Rx Instructions PO .COMPLEX 07/18/25 07/14/25 History Allergy/AdvReac Type Severity Reaction Status Date / Time rosuvastatin (From Crestor) AdvReac Severe Myalgias Verified 07/18/25 06:27 atorvastatin (From Lipitor) AdvReac Diarrhea, Verified 07/18/25 06:27 vomiting, myalgias carvedilol (From Coreg) AdvReac unknown Verified 07/18/25 06:27 Family History Uncle Myocardial infarction Father Prostate cancer Other Pacemaker- mother Surgical History History of cardiac catheterization Hx of colonoscopy History of ankle surgery History of eye surgery (02/03/20) right foot surgery History of bilateral knee arthroplasty History of coronary artery stent placement (09/07/18) Social History Smoking Status: Current every day smoker tobacco type: cigarettes Tobacco: How many years used: 50 Electronic Cigarette Use: not used second hand exposure: Yes quit status: has quit before alcohol intake: never substance use type: does not use caffeine: No Review of Systems (Anesthesia) ROS Narrative System reviewed and no additional complaints, except as documented.
--- NOTE | 2025-07-18 07:25 | PCM.HP.STD ---
HPI - General General Date of Admission: 07/18/25 Date of Service: 07/18/25 Chief Complaint: colonoscopy HPI Narrative The patient is a 75-year-old male who is being seen today for colonoscopy. Is been about 3 years since his last colonoscopy. This past colonoscopy was performed by Dr. Almonte. At that time a 2-1/2 cm tubulovillous adenoma was removed from the cecum. At that time he was advised to have a repeat colonoscopy in 3 years. He denies any new issues or complaints from a GI standpoint since his last colonoscopy. A few months ago he was diagnosed with a right lower extremity DVT from his groin downward. He saw Dr. Claudio and was placed on Xarelto. Patient presents today to begin the process of scheduling a follow-up colonoscopy [facility] Medical History Insulin dependent diabetes mellitus Diabetes Injury of head and neck Loss of consciousness Sleep apnea Chronic cough History of heart attack Encounter for screening for malignant neoplasm of lung Wears glasses Arthritis Gout High cholesterol DVT (deep venous thrombosis) Smoker CPAP (continuous positive airway pressure) dependence Emphysema, unspecified History of stress test History of echocardiogram Cardiology follow-up encounter Encounter for screening for malignant neoplasm of lung in current smoker with 30 pack year history or greater Old anteroseptal myocardial infarction Essential (primary) hypertension Ischemic cardiomyopathy Atherosclerosis of coronary artery of [place] heart without angina pectoris MEERA (obstructive sleep apnea) Tobacco abuse Hypercholesterolemia Non-STEMI (non-ST elevated myocardial infarction) (08/23/17) Home Medications ?Medication ?Instructions ?Recorded ?Last Taken ?Type aspirin 81 mg tablet,delayed 81 mg PO DAILY heart health 08/23/17 07/16/25 History release flaxseed oil 1,000 mg capsule 1,000 mg PO DAILY supplement 08/23/17 07/16/25 History vtfbpcab-qjm-zhwco acid 0.4 1 tab PO DAILY 01/28/19 07/15/25 History mg-lycopene 300 mcg-lutein 250 mcg tablet (Centrum Silver) metformin 1,000 mg tablet 1,000 mg PO BID 10/06/20 07/14/25 History turmeric root extract 500 mg 600 mg PO DAILY 10/06/20 07/16/25 History capsule losartan 100 mg tablet 100 mg PO QHS 10/13/23 07/18/25 History metoprolol tartrate 25 mg tablet 12.5 mg PO BID 12/13/24 07/18/25 History alirocumab 150 mg/mL subcutaneous 150 mg subcut Q4W 04/23/25 06/22/25 History pen injector (Praluent Pen) bee pollen 550 mg capsule 550 mg PO DAILY health 04/23/25 07/16/25 History insulin glargine 100 unit/mL 22 unit subcut QPM 04/23/25 07/17/25 21:29 History subcutaneous solution 11 unit rivaroxaban 20 mg tablet (Xarelto) 20 mg PO QDAY 04/23/25 07/15/25 History royal jelly 500 mg capsule 500 mg PO DAILY 04/23/25 07/16/25 History ginseng 100 mg capsule See Rx Instructions PO .COMPLEX 07/18/25 07/14/25 History Allergy/AdvReac Type Severity Reaction Status Date / Time rosuvastatin (From Crestor) AdvReac Severe Myalgias Verified 07/18/25 06:27 atorvastatin (From Lipitor) AdvReac Diarrhea, Verified 07/18/25 06:27 vomiting, myalgias carvedilol (From Coreg) AdvReac unknown Verified 07/18/25 06:27 Family History Uncle Myocardial infarction Father Prostate cancer Other Pacemaker- mother Surgical History History of cardiac catheterization Hx of colonoscopy History of ankle surgery History of eye surgery (02/03/20) right foot surgery History of bilateral knee arthroplasty History of coronary artery stent placement (09/07/18) Social History Smoking Status: Current every day smoker tobacco type: cigarettes Tobacco: How many years used: 50 Electronic Cigarette Use: not used second hand exposure: Yes quit status: has quit before alcohol intake: never substance use type: does not use caffeine: No Vital Signs Vital Signs Vital Signs: 07/18/25 06:32 07/18/25 06:32 07/18/25 06:51 Temperature 98.1 F 98.1 F Temperature Source Temporal Pulse Rate 76 76 Respiratory Rate 20 H 20 H Respiratory Pattern Normal Blood Pressure 148/80 H 148/80 H Blood Pressure Mean 102 Blood Pressure Source Monitor Blood Pressure Position Sitting Blood Pressure Location Left Arm Pulse Ox 97 97 Oxygen Delivery Method Room Air Weight Weight: 229 lb 4.492 oz Body Mass Index (BMI) 31.9 Physical Exam Const alert, oriented x3 and no apparent distress Assessment & Plan Assessment/Plan (1) Screening for intestinal cancer: PLAN: Plan screening colonoscopy today
--- NOTE | 2025-07-18 08:19 | OP.COLON_ITS ---
Patient Name: Navin Estrella
--- NOTE | 2025-07-18 08:20 | POSTOP.ANE_ITS ---
Anesthesia: Postop Eval I
--- NOTE | 2025-07-18 08:20 | PCM.POST.ANE ---
Anesthesia: Postop Eval I Current Vital Signs Temperature: 98 F Pulse Rate: 76 Blood Pressure: 114/81 Respiratory Rate: 16 Pulse Ox: 94 Oxygen Delivery Method: Room Air Assessment Airway patent: Yes Spontaneous unlabored respirations: Yes Mental status: Awake and Calm nausea: No Vomiting: No Anesthesia Complication: No Fluid Hydration Crystalloid volume administer (ml): 200 Total IV fluid infused: 200 Progress Note Anesthesia document: Postop Eval 1 completed: Yes
--- NOTE | 2025-07-18 08:39 | POSTOPAN2_ITS ---
Anesthesia Postop Eval I Sum
--- NOTE | 2025-07-18 08:39 | PCM.POSTANE2 ---
Anesthesia Postop Eval I Sum Postop Eval Completion status Anesthesia document: Postop Eval 1 completed: Yes Anesthesia Postop Eval I Summary Anesthesia Postop Eval I Summary: Anesthesia Postop Eval I: Assessment Summary Airway patent Yes 07/18/25 08:21 COMPUTER [email or web address] [email or web address] Spontaneous unlabored Yes 07/18/25 08:21 COMPUTER NETWORK [email or web address].JDEF respirations Mental status Awake,Calm 07/18/25 08:21 COMPUTER NETWORK [email or web address].JDEF nausea No 07/18/25 08:21 COMPUTER NETWORK [email or web address].JDEF Vomiting No 07/18/25 08:21 COMPUTER [email or web address] [email or web address].JDEF Anesthesia Postop Eval I: Fluid Summary Crystalloid volume administer 200 07/18/25 08:21 COMPUTER NETWORK [email or web address].JDEF (ml) Colloids volume administered ( ml) Blood Product volume administered (ml) Total IV fluid infused 200 07/18/25 08:21 COMPUTER NETWORK [email or web address].JDEF Anesthesia Postop Eval I: Summary Notes Anesthesia Complication No 07/18/25 08:21 COMPUTER [email or web address] [email or web address].JDEF Anesthesia Complication Comment: Post-operative progress note Anesthesia: Postop Eval II Evaluation Mental status: Awake Pain Level: 0 nausea: No Vomiting: No
== END 2025-07-18 08:57 | disposition home or self-care (01) ==
LOC: EN 05:40 → AC 05:41
PROVIDERS: PCP Family Medicine; Referring Provider Surgery; Visit Provider Surgery
PROC: 0DJD8ZZ Inspection of Lower Intestinal Tract, Via Natural or Artificial Opening Endoscopic (ICD-10-PCS; CPT 45378; principal; 2025-07-18 07:25)
DX: Z12.11 Encounter for screening for malignant neoplasm of colon (principal); Z79.4 Long term (current) use of insulin; E11.9 Type 2 diabetes mellitus without complications; K57.30 Diverticulosis of large intestine without perforation or abscess without bleeding; I25.10 Atherosclerotic heart disease of native coronary artery without angina pectoris; I10 Essential (primary) hypertension; E78.00 Pure hypercholesterolemia, unspecified; Z86.0100 Personal history of colon polyps, unspecified; Z86.718 Personal history of other venous thrombosis and embolism; Z79.01 Long term (current) use of anticoagulants; I25.2 Old myocardial infarction; G47.33 Obstructive sleep apnea (adult) (pediatric); Z99.89 Dependence on other enabling machines and devices; Z79.82 Long term (current) use of aspirin; Z79.84 Long term (current) use of oral hypoglycemic drugs; Z79.899 Other long term (current) drug therapy; Z96.653 Presence of artificial knee joint, bilateral; Z95.5 Presence of coronary angioplasty implant and graft; F17.210 Nicotine dependence, cigarettes, uncomplicated
CPT/HCPCS: 45378; 82962; J2405